=== PATIENT | female | born 1935 | race Caucasian/White ===

== ENCOUNTER → 2016-08-21 | Outpatient (CLI) | payer OTHER ==
[~2016-08-21] MED LIST: APIX1TAB PO; DILT240C48 PO; DILT300C21 PO; DRON400T PO; LEVO75TA5 PO; LNX125 PO
--- NOTE | 2016-08-21 09:46 | DIAGNOSTIC IMAGING REPORT ---
RIGHT HAND MIN 3 VIEWS ROUTINE CLINICAL HISTORY: Right hand pain COMPARISON: None. DISCUSSION: No acute fractures are visualized. 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 IMPRESSION: Advanced erosive osteoarthritic change. No acute fractures. Electronically signed by: Luiz Birmingham M.D. 08/21/2016 9:45 AM Dictated Date/Time: 08/21/2016 9:44 AM
== END | disposition home or self-care (01) ==
LOC: C.RAD1850 09:32
PROVIDERS: ATTEND Family Medicine
DX: M79.641 Pain in right hand (principal)

== ENCOUNTER → 2016-11-19 | Day surgery (SDC) | payer OTHER ==
[2016-10-21 14:54] VITALS: Ht 165.1 cm; Wt 62.3 kg
[~2016-11-19] VITALS: Ht 165.1 cm; Wt 62.3 kg
[~2016-11-19] MED LIST changes: +500ML BSS 0.3ML EPI 1:1000PF IRRIG ONE; +ACETAMINOPHEN 325 MG TAB PO PRN; +AMVISC PLUS 0.8ML SYRINGE INT OCU ONE; +ATROPINE SULFATE 0.1 MG/ML 5ML SYR IV PRN; +BSS FLUSH ONE; -DILT240C48 PO; -DRON400T PO; +ENDOCOAT 0.85ML SYRINGE INT OCU ONE; +EpHEDrine SULFATE INJ 50 MG/ML AMP IV PRN; +EpINEphrine INJ 1MG/ML AMP 1 MG/ML AMP ONE; +LACTATED RINGER'S 1000ML 500 ML IV SCH; +LIDOCAINE 4% OP SOLN DROP CHARGE ONE; +LIDOCAINE 4% OP SOLN DROP CHARGE OPL SCH; +LIDOCAINE HCL 1% MPF 2 ML VIAL ONE; +LIDOCAINE HCL 2% 2 ML VIAL (20MG/ML) ONE; +MIDAZOLAM HCL 1 MG/ML 2ML VIAL ONE; +MIX: 4ML BSS 1ML EPI 1:1000 PF TOP ONE; +MOXIFLOXACIN OPH SOLN PER DROP CHARGE ONE; +POVIDONE-IODINE OP SOLN 30 ML BTL ONE; +PROPARACAINE 0.5% OP SOLN PER DROP CHARGE OPL SCH; +PROPOFOL IV EMULSION 10 MG/ML 20 ML VIAL IV ONE; +TOBRAMYCIN/DEXAMETHASONE OPH OINT PER APPLN CHARGE ONE
--- NOTE | 2016-11-19 06:41 | History & Physical Bridge - SC ---
H&P Re-Evaluation Bridge Note: I have examined the patient, reviewed the History & Physical and in the interval since the performance of the History & Physical I have noted the following changes of clinical significance: No changes noted
[2016-11-19] MEDS: TROPICAMIDE 1% OP SOLN PER DROP CHARGE OPL SCH ×3 (06:44→06:54)
[2016-11-19] MEDS: PHENYLEPHRINE HCL 2.5% OP SOLN PER DROP CHARGE OPL SCH ×3 (06:44→06:51)
[2016-11-19] MEDS: CYCLOPENTOLATE HCL 1% OP SOLN PER DROP CHARGE OPL SCH ×3 (06:45→06:53)
[2016-11-19] MEDS: MOXIFLOXACIN OPH SOLN PER DROP CHARGE OPL SCH ×3 (06:45→06:57)
--- NOTE | 2016-11-19 07:26 | [facility] Post Operative Brief Note ---
Immediate Operative Summary Operative Date Nov 19, 2016. Pre-Operative Diagnosis Left Eye Cataract Post-Operative Diagnosis Same Procedure(s) Performed Left Eye Cataract PHacoemuslification With Intraocular Lens Implant Surgeon Dr. Carmona Client Consultant Surgeon(s) None Estimated Blood Loss None Findings left cataract Specimens None Complication(s) None Disposition
--- NOTE | 2016-11-19 07:27 | [facility] Operative Report ---
Operative Report Date of Service Nov 19, 2016. Operative Report Phaco with monofocal IOL DATE OF OPERATION: 11/19/16 PREOPERATIVE DIAGNOSIS: Senile nuclear cataract, left eye POSTOPERATIVE DIAGNOSIS: Senile nuclear cataract, left eye PROCEDURE PERFORMED: Phacoemulsification with intraocular lens implantation, left eye SURGEON: Dr. Nixon Carmona ANESTHESIA: Topical with 1% intracameral lidocaine and monitored anesthesia care COMPLICATIONS: None DESCRIPTION OF PROCEDURE: After positively identifying the patient both verbally and by wristband in the preoperative area, the left eye was marked as the operative eye. The patient was then brought back to the operating room by the anesthesia and nursing staff where they were given a drop of Lidocaine and betadine into the operative eye. They were then sterilely prepped and draped in the standard fashion typical for ophthalmic surgery. Steri-strips were placed along the upper eyelids to keep the lashes back, and a lid speculum was placed into the operative eye. At this point, a documented time out was performed with members of the ophthalmology, nursing, and anesthesia staffs all agreeing upon the correct patient, correct location for surgery, correct procedure, and correct type and power of intraocular lens to be implanted. The microscope was then swung into position. First, a paracentesis wound was made using a sideport blade. Then, in sequence, 1% preservative-free lidocaine followed by Endocoat viscoelastic was injected into the anterior chamber. Next , the main incision was made with a keratome blade in triplanar fashion. A sharp cystotome was introduced into the eye and used to create a tear in the anterior capsule, which was directed into a continuous curvilinear capsulorrhexis using Utrata forceps. Hydrodissection was then performed with BSS on a flat-tip cannula. Next, the phacoemulsification handpiece was introduced into the eye and used to remove the nucleus in a [id number] fashion. This was done without complication and then the irrigation-aspiration handpiece was introduced into the eye and used to remove all remaining cortical and epinuclear material. Amvisc was then injected into the anterior chamber as well as into the capsular bag and using the lens injector system, an MX60 23.0 D lens, serial number [id number], and expiration date 07/2019 was injected into the capsular bag and rotated into the correct position. Next, the irrigation- aspiration handpiece was used to remove all remaining Amvisc. BSS was used to hydrate the main wound, and then BSS was injected into the paracentesis site to reach physiologic pressure and then the main wound was checked and found to be watertight. The patient was given drops of Vigamox and Tobradex ointment into the operative eye, and then the surrounding area was cleaned and dried. A clear plastic shield was placed over the eye and the patient was then sat up and taken from the operating room by the anesthesia staff having tolerated the procedure well and suffering no complications. DISPOSITION: The patient was returned to the recovery room in stable condition. I attest to the content of the Intraoperative Record and any orders documented therein. Any exceptions are noted below.
--- NOTE | 2016-11-19 07:28 | Discharge Instructions-SurgCtr ---
Discharge Instructions Date of Service Nov 19, 2016. Visit Reason for Visit: Cataract Left Eye Discharge Discharge Diagnosis / Problem: left cataract Discharge Goals Goal(s): Decrease discomfort, Improve function Activity Recommendations Activity Limitations: as noted below Anesthesia . Post Anesthesia Instructions: If you have had General Anesthesia or IV Sedation: * Do not drive today. * Resume driving when surgeon permits. * Do not make important decisions or sign legal documents today. * Call surgeon for: 1. Temperature elevations greater than 101 degrees F. 2. Uncontrollable pain. 3. Excessive bleeding. 4. Persistent nausea and vomiting. 5. Medication intolerance (nausea, vomiting or rash). * For nausea and vomiting use only clear liquids such as: tea, soda, bouillon until nausea subsides, then gradually increase diet as tolerated. * If you have any concerns or questions, call your surgeon's office. If physician is unavailable and it is an emergency, call 911 or go to the nearest emergency room. . Instructions / Follow-Up Instructions / Follow-Up ACTIVITY RECOMMENDATIONS: * Light activities. * You may walk outside, read, watch television. * You may notice redness on the white part of the eye and some blurry vision - this is normal. MEDICATIONS: Resume previous medications unless instructed otherwise by your surgeon. Start all eye drops at 9:30 am today: * Eye drops (today): Prednisone - one drop in operative eye every 2 hours while awake Ofloxacin - one drop in operative eye every 2 hours while awake Bromfenac - one drop in operative eye daily SPECIAL CARE INSTRUCTIONS: * Tape plastic shield over eye to sleep at night. Call your doctor at with any concerns or problems. FOLLOW UP VISIT: Follow-up with Dr Carmona at [facility] as scheduled. Diet Recommendations Home Diet: no limitations Procedures Procedures Performed: Left Eye Cataract PHacoemuslification With Intraocular Lens Implant Pending Studies Studies pending at discharge: no Medical Emergencies . Who to Call and When: Medical Emergencies: If at any time you feel your situation is an emergency, please call 911 immediately. . Non-Emergent Contact Non-Emergency issues call your: Surgeon . . "Provider Documentation" section prepared by Nixon Carmona. .
[2016-11-19 07:30] VITALS: TEMP 36.3
--- NOTE | 2016-11-19 07:39 | Anesthesia Progress Nt - [facility] ---
Anesthesia Post Op Note Date & Time Nov 19, 2016 at 07:39 Vital Signs Pain Intensity: 0 Vital Signs Past 12 Hours Date Time Temp Pulse Resp B/P (MAP) Pulse Ox O2 Delivery O2 Flow Rate FiO2 11/19/16 06:42 105 16 130/86 (101) Notes Mental Status: alert / awake / arousable, participated in evaluation Pt Amnestic to Procedure: Yes Nausea / Vomiting: adequately controlled Pain: adequately controlled Airway Patency, RR, SpO2: stable & adequate BP & HR: stable & adequate Hydration State: stable & adequate Anesthetic Complications: no major complications apparent
[2016-11-19 07:57] VITALS: BP 146/88; PULSE 84; O2SAT 97
== END | disposition home or self-care (01) ==
LOC: X.SURG 06:06
PROVIDERS: ATTEND Ophthalmology
DX: H25.12 Age-related nuclear cataract, left eye (principal); E78.00 Pure hypercholesterolemia, unspecified; I48.91 Unspecified atrial fibrillation; E07.9 Disorder of thyroid, unspecified; I51.9 Heart disease, unspecified; Z79.899 Other long term (current) drug therapy

== ENCOUNTER → 2016-12-03 | Day surgery (SDC) | payer OTHER ==
[2016-11-27 07:38] VITALS: Ht 165.1 cm; Wt 62.3 kg
[~2016-12-03] VITALS: Ht 165.1 cm; Wt 62.3 kg
[~2016-12-03] MED LIST changes: +LACTATED RINGER'S 1000ML 1,000 ML IV SCH; -LACTATED RINGER'S 1000ML 500 ML IV SCH; -LIDOCAINE 4% OP SOLN DROP CHARGE OPL SCH; +LIDOCAINE 4% OP SOLN DROP CHARGE OPR SCH; -LIDOCAINE HCL 2% 2 ML VIAL (20MG/ML) ONE; -PROPARACAINE 0.5% OP SOLN PER DROP CHARGE OPL SCH; +PROPARACAINE 0.5% OP SOLN PER DROP CHARGE OPR SCH; -PROPOFOL IV EMULSION 10 MG/ML 20 ML VIAL IV ONE
[2016-12-03] MEDS: PHENYLEPHRINE HCL 2.5% OP SOLN PER DROP CHARGE OPR SCH ×3 (09:24→09:35)
[2016-12-03] MEDS: CYCLOPENTOLATE HCL 1% OP SOLN PER DROP CHARGE OPR SCH ×3 (09:26→09:38)
[2016-12-03] MEDS: TROPICAMIDE 1% OP SOLN PER DROP CHARGE OPR SCH ×3 (09:27→09:37)
[2016-12-03] MEDS: MOXIFLOXACIN OPH SOLN PER DROP CHARGE OPR SCH ×3 (09:28→09:39)
--- NOTE | 2016-12-03 10:32 | [facility] Post Operative Brief Note ---
Immediate Operative Summary Operative Date Dec 03, 2016. Pre-Operative Diagnosis Right Eye Cataract Post-Operative Diagnosis Same Procedure(s) Performed Right Cataract Phacoemulsification With Intraocular Lens Implant Surgeon Dr Carmona Supervisor Grounds Surgeon(s) None Estimated Blood Loss 0ml Findings right cataract Specimens None Complication(s) None Disposition
--- NOTE | 2016-12-03 10:33 | [facility] Operative Report ---
Operative Report Date of Service Dec 03, 2016. Operative Report Phaco with monofocal IOL DATE OF OPERATION: 12/03/16 PREOPERATIVE DIAGNOSIS: Senile nuclear cataract, right eye POSTOPERATIVE DIAGNOSIS: Senile nuclear cataract, right eye PROCEDURE PERFORMED: Phacoemulsification with intraocular lens implantation, right eye SURGEON: Dr. Nixon Carmona ANESTHESIA: Topical with 1% intracameral lidocaine and monitored anesthesia care COMPLICATIONS: None DESCRIPTION OF PROCEDURE: After positively identifying the patient both verbally and by wristband in the preoperative area, the right eye was marked as the operative eye. The patient was then brought back to the operating room by the anesthesia and nursing staff where they were given a drop of Lidocaine and betadine into the operative eye. They were then sterilely prepped and draped in the standard fashion typical for ophthalmic surgery. Steri-strips were placed along the upper eyelids to keep the lashes back, and a lid speculum was placed into the operative eye. At this point, a documented time out was performed with members of the ophthalmology, nursing, and anesthesia staffs all agreeing upon the correct patient, correct location for surgery, correct procedure, and correct type and power of intraocular lens to be implanted. The microscope was then swung into position. First, a paracentesis wound was made using a sideport blade. Then, in sequence, 1% preservative-free lidocaine followed by Endocoat viscoelastic was injected into the anterior chamber. Next , the main incision was made with a keratome blade in triplanar fashion. A sharp cystotome was introduced into the eye and used to create a tear in the anterior capsule, which was directed into a continuous curvilinear capsulorrhexis using Utrata forceps. Hydrodissection was then performed with BSS on a flat-tip cannula. Next, the phacoemulsification handpiece was introduced into the eye and used to remove the nucleus in a [id number] fashion. This was done without complication and then the irrigation-aspiration handpiece was introduced into the eye and used to remove all remaining cortical and epinuclear material. Amvisc was then injected into the anterior chamber as well as into the capsular bag and using the lens injector system, an MX60 22.5 D lens, serial number [id number], and expiration date 08/2019 was injected into the capsular bag and rotated into the correct position. Next, the irrigation- aspiration handpiece was used to remove all remaining Amvisc. BSS was used to hydrate the main wound, and then BSS was injected into the paracentesis site to reach physiologic pressure and then the main wound was checked and found to be watertight. The patient was given drops of Vigamox and Tobradex ointment into the operative eye, and then the surrounding area was cleaned and dried. A clear plastic shield was placed over the eye and the patient was then sat up and taken from the operating room by the anesthesia staff having tolerated the procedure well and suffering no complications. DISPOSITION: The patient was returned to the recovery room in stable condition. I attest to the content of the Intraoperative Record and any orders documented therein. Any exceptions are noted below.
[2016-12-03 10:34] VITALS: TEMP 36.4
--- NOTE | 2016-12-03 10:34 | Discharge Instructions-SurgCtr ---
Discharge Instructions Date of Service Dec 03, 2016. Visit Reason for Visit: Cataract Right Eye Discharge Discharge Diagnosis / Problem: right cataract Discharge Goals Goal(s): Decrease discomfort, Improve function Activity Recommendations Activity Limitations: as noted below Anesthesia . Post Anesthesia Instructions: If you have had General Anesthesia or IV Sedation: * Do not drive today. * Resume driving when surgeon permits. * Do not make important decisions or sign legal documents today. * Call surgeon for: 1. Temperature elevations greater than 101 degrees F. 2. Uncontrollable pain. 3. Excessive bleeding. 4. Persistent nausea and vomiting. 5. Medication intolerance (nausea, vomiting or rash). * For nausea and vomiting use only clear liquids such as: tea, soda, bouillon until nausea subsides, then gradually increase diet as tolerated. * If you have any concerns or questions, call your surgeon's office. If physician is unavailable and it is an emergency, call 911 or go to the nearest emergency room. . Instructions / Follow-Up Instructions / Follow-Up ACTIVITY RECOMMENDATIONS: * Light activities. * You may walk outside, read, watch television. * You may notice redness on the white part of the eye and some blurry vision - this is normal. MEDICATIONS: Resume previous medications unless instructed otherwise by your surgeon. Start all eye drops at 12:30 pm today: * Eye drops (today): Prednisone - one drop in operative eye every 2 hours while awake Ofloxacin - one drop in operative eye every 2 hours while awake Bromfenac - one drop in operative eye daily SPECIAL CARE INSTRUCTIONS: * Tape plastic shield over eye to sleep at night. Call your doctor at with any concerns or problems. FOLLOW UP VISIT: Follow-up with Dr Carmona at [facility] as scheduled. Diet Recommendations Home Diet: no limitations Procedures Procedures Performed: Right Cataract Phacoemulsification With Intraocular Lens Implant Pending Studies Studies pending at discharge: no Medical Emergencies . Who to Call and When: Medical Emergencies: If at any time you feel your situation is an emergency, please call 911 immediately. . Non-Emergent Contact Non-Emergency issues call your: Surgeon . . "Provider Documentation" section prepared by Nixon Carmona. .
--- NOTE | 2016-12-03 10:38 | Anesthesia Progress Nt - [facility] ---
Anesthesia Post Op Note Date & Time Dec 03, 2016 at 10:38 Vital Signs Pain Intensity: 0 Vital Signs Past 12 Hours Date Time Temp Pulse Resp B/P (MAP) Pulse Ox O2 Delivery O2 Flow Rate FiO2 12/03/16 10:34 36.4 76 16 128/75 (92) 97 Room Air 12/03/16 09:15 36.4 85 16 135/77 (96) 99 Room Air Notes Mental Status: alert / awake / arousable, participated in evaluation Pt Amnestic to Procedure: Yes Nausea / Vomiting: adequately controlled Pain: adequately controlled Airway Patency, RR, SpO2: stable & adequate BP & HR: stable & adequate Hydration State: stable & adequate Anesthetic Complications: no major complications apparent
[2016-12-03 10:52] VITALS: BP 126/81; PULSE 74; O2SAT 97
== END | disposition home or self-care (01) ==
LOC: X.SURG 08:46
PROVIDERS: ATTEND Ophthalmology
DX: H25.11 Age-related nuclear cataract, right eye (principal); E78.00 Pure hypercholesterolemia, unspecified; I48.91 Unspecified atrial fibrillation; E07.9 Disorder of thyroid, unspecified

== ENCOUNTER → 2017-02-16 | Outpatient (CLI) | payer OTHER ==
[~2017-02-16] MED LIST changes: -500ML BSS 0.3ML EPI 1:1000PF IRRIG ONE; -ACETAMINOPHEN 325 MG TAB PO PRN; -AMVISC PLUS 0.8ML SYRINGE INT OCU ONE; -ATROPINE SULFATE 0.1 MG/ML 5ML SYR IV PRN; -BSS FLUSH ONE; -ENDOCOAT 0.85ML SYRINGE INT OCU ONE; -EpHEDrine SULFATE INJ 50 MG/ML AMP IV PRN; -EpINEphrine INJ 1MG/ML AMP 1 MG/ML AMP ONE; -LACTATED RINGER'S 1000ML 1,000 ML IV SCH; -LIDOCAINE 4% OP SOLN DROP CHARGE ONE; -LIDOCAINE 4% OP SOLN DROP CHARGE OPR SCH; -LIDOCAINE HCL 1% MPF 2 ML VIAL ONE; -MIDAZOLAM HCL 1 MG/ML 2ML VIAL ONE; -MIX: 4ML BSS 1ML EPI 1:1000 PF TOP ONE; -MOXIFLOXACIN OPH SOLN PER DROP CHARGE ONE; -POVIDONE-IODINE OP SOLN 30 ML BTL ONE; -PROPARACAINE 0.5% OP SOLN PER DROP CHARGE OPR SCH; -TOBRAMYCIN/DEXAMETHASONE OPH OINT PER APPLN CHARGE ONE
--- NOTE | 2017-02-17 14:26 | MAMMOGRAPHY REPORT ---
BILATERAL DIGITAL SCREENING MAMMOGRAM TOMOSYNTHESIS WITH CAD: 02/16/2017 CLINICAL HISTORY: Routine screening. Patient has no complaints. TECHNIQUE: Breast tomosynthesis in addition to standard 2D mammography was performed. Current study was also evaluated with a Computer Aided Detection (CAD) system. COMPARISON: Comparison is made to exams dated: 02/11/2016 mammogram, 02/14/2015 ultrasound, 02/14/2015 mammogram, 02/01/2015 mammogram, 01/31/2014 mammogram, and 01/28/2013 mammogram - [facility]. BREAST COMPOSITION: There are scattered areas of fibroglandular density in both breasts. FINDINGS: The parenchymal pattern is unchanged. No developing mass, architectural distortion or clus ter of suspicious microcalcifications is seen in either breast. IMPRESSION: ACR BI-RADS CATEGORY 2: BENIGN There is no mammographic evidence of malignancy. A 1 year screening mammogram is recommended. The pa tient will receive written notification of the results. Approximately 10% of breast cancers are not detected with mammography. A negative mammographic report should not delay biopsy if a clinically suggestive mass is present. Candace Marie M.D. ay/:02/16/2017 15:13:42 Veterinary Virus Serum Inspector: Mirian SHIELDS)([place]), [facility] letter sent: Normal 1/2 BI-RADS Code: ACR BI-RADS Category 2: Benign
== END | disposition home or self-care (01) ==
LOC: C.MAMM 09:40
PROVIDERS: ATTEND Family Medicine
DX: Z12.31 Encounter for screening mammogram for malignant neoplasm of breast (principal)

== ENCOUNTER 2020-09-26 08:16 | Observation (INO) ==
[2020-09-26] MEDS ORDERED: SODIUM CHLORIDE 0.9% 1000ML 1,000 ML IV SCH (08:30)
--- NOTE | 2020-09-26 08:50 | XRay Report ---
XR chest 1V portable CLINICAL HISTORY: weakness COMPARISON STUDY: 06/14/2020 FINDINGS: Heart is enlarged. There is mild central pulmonary vascular congestion. There is a small ri ght pleural effusion with associated right basilar atelectasis/consolidation. A small subpulmonic lef t pleural effusion is also suspected. Prominent left basilar markings are likely atelectatic IMPRESSION: Cardiomegaly and radiographic evidence of mild congestive failure/fluid overload with sma ll bilateral pleural effusions right greater than left. ACT 112: Negative or not required by law. Electronically signed by: Luiz Birmingham M.D. 09/26/2020 8:48 AM
[2020-09-26 08:52] LABS: Basophils # (auto) 0.02 K/uL (0-0.2); Basophils % (auto) 0.3 %; Eosinophils # (auto) 0.19 K/uL (0-0.5); Hematocrit (blood only) 42.8 % (37-47); Hemoglobin 14.3 g/dL (12.0-16.0); Immature Granulocytes # (auto) 0.01 K/uL (0.00-0.02); Immature Granulocytes % (auto) 0.2 %; Lymphocytes # (auto) 0.65 K/uL (1.2-3.4); Lymphocytes % (auto) 10.1 %; Mean Corpuscular Hemoglobin 33.6 pg (25-34); Mean Corpuscular Hgb Conc 33.4 g/dL (32-36); Mean Corpuscular Volume 100.7 fL (80-100); Mean Platelet Volume 11.4 fL (7.4-10.4); Monocytes # (auto) 0.44 K/uL (0.11-0.59); Monocytes % (auto) 6.9 %; Neutrophils % (auto) 79.5 %; Platelet Count 195 K/uL (130-400); RDW Coefficient of Variation 13.5 % (11.5-14.5); RDW Standard Deviation 50.1 fL (36.4-46.3); Red Blood Count 4.25 M/uL (4.2-5.4); White Blood Count 6.41 K/uL (4.8-10.8)
[2020-09-26 09:09] LABS: Alanine Aminotransferase 35 U/L (12-78); Aspartate Aminotransferase 22 U/L (15-37); BUN Creatinine Ratio 14.8 (10-20); Blood Urea Nitrogen 24 mg/dl (7-18); Calcium 9.2 mg/dl (8.5-10.1); Carbon Dioxide 29 mmol/L (21-32); Chloride 105 mmol/L (98-107); Creatinine Clr Calc Pharmacy 19.8 ml/min; Est GFR (African American) 33.2 ml/min; Est GFR (Non-African American) 28.7 ml/min; Glucose 131 mg/dl (70-99); Potassium 3.6 mmol/L (3.5-5.1); Sodium 139 mmol/L (136-145)
[2020-09-26] MEDS ORDERED: FUROSEMIDE 40 MG/4 ML VIAL IV STA (09:11)
[2020-09-26 09:19] LABS: Alkaline Phosphatase 124 U/L (45-117); Bilirubin,Total 0.8 mg/dl (0.2-1); Globulin 4.1 gm/dl (2.5-4.0); Total Protein 8.1 gm/dl (6.4-8.2); Troponin I < 0.015 ng/ml (0-0.045)
--- NOTE | 2020-09-26 09:51 | CT Scan Report ---
CT head/brain wo con CLINICAL HISTORY: Head trauma. Acute change in mental status. COMPARISON STUDY: No previous studies for comparison. TECHNIQUE: Axial CT of the brain is performed from the vertex to the skull base. IV contrast was not administered for this examination. A dose lowering technique was utilized adhering to the principles of ALARA. CT DOSE: 1597.28 mGy.cm FINDINGS: No intra or extra-axial mass lesions are visualized. There is no CT evidence of acute cortical infarc tion. There is no evidence of midline shift. There is no acute hemorrhage. No calvarial fractures ar e visualized. There are patchy white matter hypodensities likely on a small vessel basis. There is a 3 mm for this particular calcification. There is no evidence of pathologic ventricular dilatation. There is no evidence of acute sinusitis There is left frontal scalp edema. The localizer image demonstrates evidence of congestive failure/fluid overload. IMPRESSION: No acute intracranial findings ACT 112: Negative or not required by law. Electronically signed by: Luiz Birmingham M.D. 09/26/2020 9:50 AM
--- NOTE | 2020-09-26 10:03 | CT Scan Report ---
CERVICAL SPINE CT CT DOSE: HISTORY: Pt c/o fall TECHNIQUE: Multiaxial CT images of the cervical spine were performed and reformatted in the sagittal and coronal plane without the use of contrast. A dose lowering technique was utilized adhering to th e principles of ALARA. COMPARISON: None. FINDINGS: No fractures. No subluxation. Prevertebral soft tissues and the C1-C2 interval are intact. No pneumothorax. There is interlobular septal thickening within the lung apices with bilateral pleura l effusions. This favors pulmonary edema. Straightening of the cervical spine. Moderate to severe dis c space narrowing from C4 through C7 with endplate osteophytes. IMPRESSION: 1. No fractures within the cervical spine. 2. Pulmonary edema and bilateral pleural effusions. ACT 112: Negative or not required by law. Electronically signed by: Deshawn Clayton M.D. 09/26/2020 10:02 AM
[2020-09-26 10:35] LABS: Appearance Urine Clear (Clear); Bacteria Urine Automated Negative (Negative); Bilirubin Urine Negative (Negative); Blood Urine Trace (Negative); Cast Urine Automated 0 /lpf (0-5); Color Urine Yellow; Epithelial Cell Urine Auto 0-5 /lpf (0-5); Glucose Urine UA Negative (Negative); Ketones Urine Negative (Negative); Leukocyte Esterase Urine Negative (Negative); Nitrite Urine Negative (Negative); Protein Urine Negative (Negative); Specific Gravity Urine 1.007 (1.000-1.030); Urobilinogen Urine Negative (Negative); pH Urine 7.5 (4.5-7.5)
[2020-09-26] MEDS ORDERED: APIXABAN 2.5 MG TAB PO STA (10:53)
--- NOTE | 2020-09-26 11:35 | History & Physical Report ---
Date of Service September 26, 2020 Assessment & Plan (1) Fall: Plan: S/p fall with dizziness as primary symptom prior. - Patient exhibiting evidence of volume overload with elevated BNP and mild congestion on CXR - Likely related to valve incompetence in the setting of elevation in intravascular volume - Troponin and ECG normal - Head CT scan negative for acute bleed - Neuroligcal exam normal- neuro checks q4 hours, if any worsening repeat stat non-con head CT - Cervical spine cleared radiologically and clinically - No other evidence of trauma - Telmetry for 24 hours (2) Severe mitral valve stenosis: Plan: As above, ? complicated with dietary indiscretion and volume increase - She denies any orthopnea normally - ECHO while in house evlaute valve funciton - Noted dilated atrium on last ECHO (3) Atrial fibrillation: Plan: Rate controlled with diltiazem and Digoxin. She takes her Digoxin MWF - She did not take her medications this morning- ordered 1x dose in EMD of her Apixaban, Digoxin, Cardizem, Synthroid - Rate has improved into the 80s with diuresing although this is at rest - Follow telemetry - Dig level ordered - Continue above medications (4) CKD (chronic kidney disease) stage 3, GFR 30-59 ml/min: Plan: Kidney function stable at her baseline - Avoid nephrotoxic medicatons and renally dose as applicable (5) Hypoxia: Plan: Likely related to increase pulmonary vascular congestion as above - Symptoms greatly improved with brisk diuresing - Follow- due that she hasn't missed a dose of her apixaban PE unlikely - if her symptoms don't arleen consider CTA of the chest - Wean oxygen for SPo2 >94% - Albuterol PRN for wheezing (6) Hypothyroid: Plan: Continue Synthroid dosing- history of Abhinav thyroiditis (7) GERD (gastroesophageal reflux disease): Plan: Chronic- Continue famotidine and Omeprazole (8) B12 deficiency: Plan: Continue B12 mild macrocytic with normal HGB - no acute needs at this time History of Present Illness Chief Complaint: fall Primary Care Provider: Geri Salgado, DO 84 YOF with past medical history of: HF, Afib(on Apixaban), 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 Patient comes into the emergency room today after getting out of bed this morning and feeling weak; she then fell over hitting her head on her bed. She states that she just got up and felt dizzy and went over. She denies losing consciousness and was able to crawl to chair to get up and call her son. She denies any prodrome symptoms, room spinning, or tunneling of vision. She had some increase in dyspnea into this morning and this has gotten better per her after getting the lasix in the EMD. Patient does not endorse any other symptoms through this week. She does however endorse dietary indiscretion with salted crackers over the past couple of days. In the EMD the patient had routine labs drawn, CT scan of the head and neck, and required oxygen which has now been titrated down to 2LNC. Her labs were remarkable for an elevated BNP, glucose of 131. She was given 40 mg IV Lasix with brisk response at this time. Patient feels her breathing has improved quiet a bit, she used to be on a diuretic in the past but not anymore. She also denies that she has missed any of her medications including her Apixaban. Patient will be observed overnight regarding her rhythm, fluid volume status, mental status, and oxygenation needs. Patient received [facility] COVID vaccine in the spring. COVID test is pending on admission. Allergies Allergy/AdvReac Type Severity Reaction Status Date / Time No Known Drug Allergies Allergy Verified 09/26/20 10:47 Home Medications Medication Instructions Recorded Confirmed Type apixaban 2.5 mg tablet 2.5 mg PO BID tab 10/18/18 09/26/20 History digoxin 125 mcg (0.125 mg) tablet 125 mcg PO 3XWK tab 10/18/18 09/26/20 History diltiazem HCl 300 mg 300 mg PO QAM cap 10/18/18 09/26/20 History capsule,extended release 24 hr levothyroxine 75 mcg tablet 75 mcg PO QAM tab 10/18/18 09/26/20 History famotidine 10 mg tablet 10 mg PO QAM 03/05/20 09/26/20 History omeprazole 20 mg capsule,delayed 20 mg PO DAILY 06/13/20 09/26/20 History release cyanocobalamin (vitamin B-12) 0 mcg PO QDL 09/26/20 09/26/20 History 1,000 mcg tablet (Vitamin B-12) escitalopram oxalate 5 mg tablet 5 mg PO QAM 09/26/20 09/26/20 History furosemide 20 mg tablet 20 mg PO 3XWK 09/26/20 09/26/20 History Past Med/Surg History Medical History Atrial fibrillation A FEW YEARS AGO , CARDIOVERSION UNSUCCESSFUL. FOLLOW WITH DR POZO TAKES DIG AND DILTIAZEM AND ELIQUIS Atrial fibrillation Chronic kidney disease, stage 3 Extremity edema TAKES LASIX NEEDED Abhinav's thyroiditis Pleural effusion Severe mitral valve stenosis Shortness of breath Surgical History History of laparotomy SMALL BOWEL OBSTRUCTION DUE TO ADHESION 2018 Hx of colonoscopy Hx of inguinal hernia surgery (04/21/19) Right Open Inguinal Hernia with Mesh Dr. Kumar 04/21/19 Family History Sister Hearing loss Heart disease Brother Hearing loss Heart disease Other No family history of adverse response to anesthesia No family history of bleeding disorder Denies family history of Kidney disease Social History Smoking Status: Never smoker Second Hand Exposure: No; Hx Alcohol Use: No Hx Substance Use: No Preferred Language: Cymraes Communication Ability: Effective Visual Impairment: No Limitations Cook Chef Required: No Beliefs That Will Affect Care: None marital status: / Current Living Situation: Alone Current Living Situation Comment: apartment current occupational status: retired Other Information That Helps Us Care for You: No Feels Safe at Home: Yes Safety Concerns: Feels Safe At This Time Assistive Devices: Denture - Upper, Denture - Lower and Glasses Review of Systems Review of Systems: REVIEW OF SYSTEMS: Constitutional: No fever, sweats or chills Eyes: No diplopia, no worsening or blurred vision ENT: (+) wears bilateral hearing aids, no trouble swallowing Respiratory: (+) dyspnea with exertion, No cough, sputum, dyspnea at rest Cardiovascular: No chest pain, tightness or palpitations Abdomen: No pain, nausea, vomiting, diarrhea or constipation Musculoskeletal: (+) chronic left knee NO calf pain, swelling Neurologic: No weakness, numbness/tingling, or balance problems Psychiatric: No anxiety or depression Skin: No rash or itch Physical Exam Physical Exam: PHYSICAL EXAM: General: awake, alert, no apparent distress, hematoma to left forehead Head: Normocephalic, hematoma to left forehead, no tenderness to skull or face ENT: PERRL, EOMI, no pharyngeal exudate, mucous membranes moist Neuro: AAO x 3, speech clear and appropriate, strength intact bilaterally 5/5, sensation intact and equal all extremities and dermatomes, no pronator drift Chest: equal rise and fall of the chest, no accessory muscle use, no heaves or thrills, scattered crackles with expiratory wheeze, 2LNC, Cardiac: irregular rate and rhythm, telemetry reviewed-afib, skin warm dry, cap refill <3 seconds, peripheral pulses +2 no JVD, Grade III systolic murmur, no edema GI: NABS x 4 quadrants, soft, nontender to palpation, no rebound, guarding or tenderness : Spontaneously voiding, no pain, no CVA tenderness, Extremities: Normal inspection, no peripheral edema or erythema, calfs nontender to palpation MSK: No cervical or thoracic pain with palpation, no stepoffs, full range of motion to neck, full rom to shoulders, arms, and hip and pelvis without tenderness. Psych: Normal mood and affect Skin: as above, no rash or erythema Results & Data Results & Data ([facility]) Vital Signs (Past 12 Hours) Vital Signs Temp Pulse Pulse Resp BP BP Pulse Ox 09/26/20 09:33 87 L 09/26/20 09:31 98 H 24 152/98 H 94 09/26/20 08:42 92 09/26/20 08:23 36.4 C L 79 18 143/74 H 91 09/26/20 08:21 83 19 143/74 H 91 Laboratory Results Abnormal lab results 09/26/20 09/26/20 09/26/20 Range/Units 08:30 08:30 08:30 MCV 100.7 H (80-100) fL RDW Std Deviation 50.1 H (36.4-46.3) fL MPV 11.4 H (7.4-10.4) fL Lymph # (Auto) 0.65 L (1.2-3.4) K/uL BUN 24 H (7-18) mg/dl Creatinine 1.61 H (0.6-1.2) mg/dl Glucose 131 H (70-99) mg/dl Alkaline Phosphatase 124 H (45-117) U/L NT-Pro-B Natriuret Pep 3176 H (0-1800) pg/ml Globulin 4.1 H (2.5-4.0) gm/dl Urine Blood (Negative) Urine RBC (Auto) (0-4) /hpf 09/26/20 Range/Units 10:15 MCV (80-100) fL RDW Std Deviation (36.4-46.3) fL MPV (7.4-10.4) fL Lymph # (Auto) (1.2-3.4) K/uL BUN (7-18) mg/dl Creatinine (0.6-1.2) mg/dl Glucose (70-99) mg/dl Alkaline Phosphatase (45-117) U/L NT-Pro-B Natriuret Pep (0-1800) pg/ml Globulin (2.5-4.0) gm/dl Urine Blood Trace H (Negative) Urine RBC (Auto) 5-10 H (0-4) /hpf Diagnostic Findings Cervical Spine CT 09/26/20 08:[address] DOSE: HISTORY: Pt c/o fall TECHNIQUE: Multiaxial CT images of the cervical spine were performed and reformatted in the sagittal and coronal plane without the use of contrast. A dose lowering technique was utilized adhering to the principles of ALARA. COMPARISON: None. FINDINGS: No fractures. No subluxation. Prevertebral soft tissues and the C1-C2 interval are intact. No pneumothorax. There is interlobular septal thickening within the lung apices with bilateral pleural effusions. This favors pulmonary edema. Straightening of the cervical spine. Moderate to severe disc space narrowing from C4 through C7 with endplate osteophytes. IMPRESSION: 1. No fractures within the cervical spine. 2. Pulmonary edema and bilateral pleural effusions. ACT 112: Negative or not required by law. Electronically signed by: Deshawn Clayton M.D. 09/26/2020 10:02 AM Chest X-Ray 09/26/20 08:28 XR chest 1V portable CLINICAL HISTORY: weakness COMPARISON STUDY: 06/14/2020 FINDINGS: Heart is enlarged. There is mild central pulmonary vascular congestion. There is a small right pleural effusion with associated right bas ilar atelectasis/consolidation. A small subpulmonic left pleural effusion is also suspected. Prominent left basilar markings are likely atelectatic IMPRESSION: Cardiomegaly and radiographic evidence of mild congestive failure/fluid overload with small bilateral pleural effusions right greater than left. ACT 112: Negative or not required by law. Electronically signed by: Luiz Birmingham M.D. 09/26/2020 8:[address] 09/26/20 08:28 CT head/brain wo con CLINICAL HISTORY: Head trauma. Acute change in mental status. COMPARISON STUDY: No previous studies for comparison. TECHNIQUE: Axial CT of the brain is performed from the vertex to the skull base. IV contrast was not administered for this examination. A dose lowering technique was utilized adhering to the principles of ALARA. CT DOSE: 1597.28 mGy.cm FINDINGS: No intra or extra-axial mass lesions are visualized. There is no CT evidence of acute cortical infarction. There is no evidence of midline shift. There is no acute hemorrhage. No calvarial fractures are visualized. There are patchy white matter hypodensities likely on a small vessel basis. There is a 3 mm for this particular calcification. There is no evidence of pathologic ventricular dilatation. There is no evidence of acute sinusitis There is left frontal scalp edema. The localizer image demonstrates evidence of congestive failure/fluid overload. IMPRESSION: No acute intracranial findings ACT 112: Negative or not required by law. Electronically signed by: Luiz Birmingham M.D. 09/26/2020 9:50 AM Medications Administered Home Medications apixaban 2.5 mg tablet 2.5 mg PO BID tab 10/18/18 [History Confirmed 09/26/20] digoxin 125 mcg (0.125 mg) tablet 125 mcg PO 3XWK tab 10/18/18 [History Confirmed 09/26/20] diltiazem HCl 300 mg capsule,extended release 24 hr 300 mg PO QAM cap 10/18/18 [History Confirmed 09/26/20] levothyroxine 75 mcg tablet 75 mcg PO QAM tab 10/18/18 [History Confirmed 09/26/20] famotidine 10 mg tablet 10 mg PO QAM 03/05/20 [History Confirmed 09/26/20] omeprazole 20 mg capsule,delayed release 20 mg PO DAILY 06/13/20 [History Confirmed 09/26/20] cyanocobalamin (vitamin B-12) 1,000 mcg tablet (Vitamin B-12) 0 mcg PO QDL 09/26/20 [History Confirmed 09/26/20] escitalopram oxalate 5 mg tablet 5 mg PO QAM 09/26/20 [History Confirmed 09/26/20] furosemide 20 mg tablet 20 mg PO 3XWK 09/26/20 [History Confirmed 09/26/20] Discontinued Medications Furosemide (Furosemide 40 Mg/4 Ml Vial) 40 mg IV NOW STA Stop: 09/26/20 09:12 Last Admin: 09/26/20 09:28 Dose: 40 mg Documented by: [id number] Sodium Chloride (Nss 1000ml) 1,000 mls @ 999 mls/hr IV .Q1H1M SADI Stop: 09/26/20 09:30 Last Infusion: 09/26/20 10:32 Dose: 0 mls/hr Documented by: [id number] Admin: 09/26/20 08:43 Dose: 999 mls/hr Documented by: [id number] ECG Additional Comments: Atrial fibrillation Left axis deviation Nonspecific ST abnormality Abnormal ECG When compared with ECG of 17-JUN-2019 07:30, No significant change was found Code Status & VTE Plan Code Status CODE: FULL VTE: SCD's, Apixaban VTE Prophylaxis Plan VTE Prophylaxis will be ordered: Yes Supervising Physician Co-Signing Physician Notes Patient seen and examined at bedside. Obtained history and physical examination during face to face encounter with patient. I reviewed above note and agree with it. Discussed plan with RICKEY Rosario. I answered all of the patients questions. Patient is being admitted for likely fluid overload. will continue diuretics and monitor renal function. PG Care Time/CCT Total # of Minutes Spent Total Time Spent with Patient: Total time spent is greater than 50% in coordination of care (as documented) at patient's floor/unit and/or counseling patient: Coding Level of Care Code INT OBSERVATION CARE 70M LVL 3 Diagnoses Fall W19.XXXA Severe mitral valve stenosis I05.0 Atrial fibrillation I48.91 CKD (chronic kidney disease) stage 3, GFR 30-59 ml/min N18.3 Hypoxia R09.02 Hypothyroid E03.9 GERD (gastroesophageal reflux disease) K21.9 B12 deficiency E53.8
--- NOTE | 2020-09-26 14:15 | Emergency Department Note ---
Impression & Plan Weakness, Fall, Head injury ED Provider Note NAME: ZAFAR LOBO AGE: 84 SEX: F : 1935 ARRIVES VIA: Ambulance INFORMANT: Patient, ED PROVIDER(S): Dennis Walker MD CHIEF COMPLAINT: Fall, weakness HPI: This is an 84-year-old female who arrives in the emergency department short of breath. The patient reports she was getting out of bed this morning and she fell due to weakness complaining of a headache. The patient reports the pain is an ache with no radiation. She reports nothing makes the pain better or worse. She has not taken anything for the pain prior to arrival. The patient is on Xa relto. She reports a history of atrial fibrillation. ROS: See above HPI for pertinent positives & negatives. A total of 10 systems reviewed and were otherwise negative. PAST MEDICAL HISTORY: See Below PAST SURGICAL HISTORY: See Below FAMILY HISTORY: See Below SOCIAL HISTORY: See Below HOME MEDICATIONS: See Below ALLERGIES: See Below VITALS: See Below PHYSICAL EXAMINATION: VITAL SIGNS - Vital signs and nursing notes were reviewed. GENERAL - 84-year-old female appearing stated age who is in no acute distress. Communicates well with provider and answers questions appropriately. SKIN - Without rashes. HEAD - NC/AT. EYES - PERRL with EOMI bilaterally. Sclera anicteric. Palpebral conjunctiva pink and moist with no injection noted. EARS - No deformities of external structures noted on gross examination bilaterally. No pain elicited with palpation of the tragus bilaterally. NOSE - Midline and without cyanosis. No epistaxis or purulent drainage noted. Septum midline without deviation or septal hematoma noted. MOUTH/OROPHARYNX - Without perioral cyanosis. Buccal mucosa pink and moist and without leukoplakia. Tongue midline with equal elevation of palate bilaterally. No tonsillar hypertrophy, erythema, or exudates noted. NECK - Neck with FROM. Supple to palpation. LUNGS - Chest wall symmetric without accessory muscle use, intercostals retractions, or central cyanosis. Normal vesicular breath sounds CTA B/L. No wheezes, rales, or rhonchi appreciated. CARDIAC - RRR with S1/S2. No murmur, rubs, or gallops appreciated. ABDOMEN - Abdominal contour without pulsations or visible masses. BS normoactive all four quadrants. No tenderness, palpable masses, hepatosplenomegaly, or ascites noted. EXTREMITIES - No clubbing or peripheral cyanosis. No pretibial edema present. +3/5 radial, posterior tibial, and dorsalis pedis pulses palpated throughout. +5/5 strength noted in UE/LE bilaterally. NEUROLOGIC - Cranial nerves II through XII grossly intact. Sensory intact to light touch throughout. Patellar reflexes +2/4. PSYCH - A&Ox3 and cooperates fully with examiner. Pt is very pleasant and interacts well with examiner. MEDICAL DECISION MAKING: Patient was seen and evaluated as above in room A2. Review was performed of nursing notes and vital signs. I did review pertinent previous visits and patient history. After obtaining a thorough history and physical examination the above work up was performed. This is an 84-year-old female who presents emergency department after weakness. Patient was found to be hypoxic in the emergency department. Her chest x-ray is consistent with congestive heart failure. She does not have an elevation in her troponin. She was given IV Lasix here in the emergency department. I did discuss her case with the hospitalist service who did agree to meet the patient. Patient and family are in agreement with treatment plan. An order was placed for continuous cardiac monitoring. The monitor shows a rate of 87 with Normal Sinus rhythm. The patient was evaluated during a period of high volume and high acuity during the global COVID-19 pandemic, and that diagnosis was suspected/considered upon their initial presentation. Their evaluation, treatment and testing was consistent with current guidelines for patients who present with complaints or symptoms that may be related to COVID-19. Patient was seen while provider was wearing PPE. Triage Nursing notes reviewed. Prior medical records reviewed Vital Signs: reviewed and remarkable for no significant abnormalities Differential diagnosis: Infection, dehydration, metabolic abnormality, hypo/hyperglycemia, electrolyte disturbance, anemia, hypoxia, cardiac sources, intracerebral event, toxicologic, neurologic, as well as other pathologies. ER treatment provided: See below Diagnostics interpreted by me: ECG: A. fib left axis deviation no ST elevation or depression QTC is 458 ventricular rate is 84 EKG is compared to 06/17/2019 no significant changes found. Laboratory studies: As stated above and show below. Imaging studies: See below Consultation(s): Internal Medicine Past Med/Surg History Medical History Atrial fibrillation A FEW YEARS AGO , CARDIOVERSION UNSUCCESSFUL. FOLLOW WITH DR POZO TAKES DIG AND DILTIAZEM AND ELIQUIS Atrial fibrillation Chronic kidney disease, stage 3 Extremity edema TAKES LASIX NEEDED Abhinav's thyroiditis Pleural effusion Severe mitral valve stenosis Shortness of breath Surgical History History of laparotomy SMALL BOWEL OBSTRUCTION DUE TO ADHESION 2018 Hx of colonoscopy Hx of inguinal hernia surgery (04/21/19) Right Open Inguinal Hernia with Mesh Dr. Kumar 04/21/19 Family History Sister Hearing loss Heart disease Brother Hearing loss Heart disease Other No family history of adverse response to anesthesia No family history of bleeding disorder Denies family history of Kidney disease Social History Smoking Status: Never smoker Second Hand Exposure: No; Hx Alcohol Use: No Hx Substance Use: No Preferred Language: Bulgarian Communication Ability: Effective Visual Impairment: No Limitations [employer] Required: No Beliefs That Will Affect Care: None marital status: / Current Living Situation: Alone Current Living Situation Comment: apartment current occupational status: retired Feels Safe at Home: Yes Assistive Devices: Denture - Upper, Denture - Lower and Glasses Allergies Allergies Allergy/AdvReac Type Severity Reaction Status Date / Time No Known Drug Allergies Allergy Verified 09/26/20 10:47 Home Meds Home Medications Medication Instructions Recorded Confirmed apixaban 2.5 mg tablet 2.5 mg PO BID tab 10/18/18 09/26/20 digoxin 125 mcg (0.125 mg) tablet 125 mcg PO 3XWK tab 10/18/18 09/26/20 diltiazem HCl 300 mg 300 mg PO QAM cap 10/18/18 09/26/20 capsule,extended release 24 hr levothyroxine 75 mcg tablet 75 mcg PO QAM tab 10/18/18 09/26/20 famotidine 10 mg tablet 10 mg PO QAM 03/05/20 09/26/20 omeprazole 20 mg capsule,delayed 20 mg PO DAILY 06/13/20 09/26/20 release cyanocobalamin (vitamin B-12) 0 mcg PO QDL 09/26/20 09/26/20 1,000 mcg tablet (Vitamin B-12) escitalopram oxalate 5 mg tablet 5 mg PO QAM 09/26/20 09/26/20 furosemide 20 mg tablet 20 mg PO 3XWK 09/26/20 09/26/20 Results & Data (ED) Vital Signs Vital Signs - 24 hr 09/26/20 08:21 09/26/20 08:23 09/26/20 08:42 Temperature 36.4 C L Temperature Source Oral Pulse Rate 83 79 Pulse Rate [Apical] Pulse Rate from SpO2 Sensor 83 Respiratory Rate 19 18 Blood Pressure 143/74 H 143/74 H Blood Pressure [Right Arm] Blood Pressure Mean 97 97 Blood Pressure Mean [Right Arm] Pulse Oximetry 91 91 92 Oxygen Delivery Method Room Air Oxygen Flow Rate Sepsis Recent Fever Within 48 Hours No Sepsis New/Unexplained Change in Mental Status No Sepsis Action Taken by Nursing No Action Required Oxygen Flow Rate - Titration Pulse Oximetry Post Tiitration 09/26/20 09:00 09/26/20 09:30 09/26/20 09:31 Temperature Temperature Source Pulse Rate 86 Pulse Rate [Apical] 98 H Pulse Rate from SpO2 Sensor 87 Respiratory Rate 24 24 Blood Pressure 140/78 152/98 H Blood Pressure [Right Arm] 152/98 H Blood Pressure Mean 98 116 Blood Pressure Mean [Right Arm] 116 Pulse Oximetry 94 Oxygen Delivery Method Oxymask Oxygen Flow Rate 6 Sepsis Recent Fever Within 48 Hours Sepsis New/Unexplained Change in Mental Status Sepsis Action Taken by Nursing Oxygen Flow Rate - Titration Pulse Oximetry Post Tiitration 09/26/20 09:33 09/26/20 10:00 09/26/20 10:30 Temperature Temperature Source Pulse Rate 85 89 Pulse Rate [Apical] Pulse Rate from SpO2 Sensor 90 84 Respiratory Rate 23 24 Blood Pressure 134/71 149/77 H Blood Pressure [Right Arm] Blood Pressure Mean 92 101 Blood Pressure Mean [Right Arm] Pulse Oximetry 87 L 96 96 Oxygen Delivery Method Nasal Cannula Oxymask Oxymask Oxygen Flow Rate 2 6 2 Sepsis Recent Fever Within 48 Hours Sepsis New/Unexplained Change in Mental Status Sepsis Action Taken by Nursing Oxygen Flow Rate - Titration 6 Pulse Oximetry Post Tiitration 94 Laboratory Data Result diagrams: 09/26/20 08:30 09/26/20 08:30 Lab Results 09/26/20 09/26/20 09/26/20 Range/Units 08:30 08:30 08:30 WBC 6.41 (4.8-10.8) K/uL RBC 4.25 (4.2-5.4) M/uL Hgb 14.3 (12.0-16.0) g/dL Hct 42.8 (37-47) % MCV 100.7 H (80-100) fL MCH 33.6 (25-34) pg MCHC 33.4 (32-36) g/dL RDW Std Deviation 50.1 H (36.4-46.3) fL RDW Coeff of Job 13.5 (11.5-14.5) % Plt Count 195 (130-400) K/uL MPV 11.4 H (7.4-10.4) fL Immature Gran % (Auto) 0.2 % Neut % (Auto) 79.5 % Lymph % (Auto) 10.1 % Porter % (Auto) 6.9 % Eos % (Auto) 3.0 % Baso % (Auto) 0.3 % Neut # (Auto) 5.10 (1.4-6.5) K/uL Lymph # (Auto) 0.65 L (1.2-3.4) K/uL Porter # (Auto) 0.44 (0.11-0.59) K/uL Eos # (Auto) 0.19 (0-0.5) K/uL Baso # (Auto) 0.02 (0-0.2) K/uL Immature Gran # (Auto) 0.01 (0.00-0.02) K/uL Sodium 139 (136-145) mmol/L Potassium 3.6 (3.5-5.1) mmol/L Chloride 105 (98-107) mmol/L Carbon Dioxide 29 (21-32) mmol/L Anion Gap 5.0 (3-11) BUN 24 H (7-18) mg/dl Creatinine 1.61 H (0.6-1.2) mg/dl Est Cr Clr Drug Dosing 19.8 ml/min Est GFR ( Amer) 33.2 ml/min Est GFR (Non-Af Amer) 28.7 ml/min BUN/Creatinine Ratio 14.8 (10-20) Glucose 131 H (70-99) mg/dl Calcium 9.2 (8.5-10.1) mg/dl Total Bilirubin 0.8 (0.2-1) mg/dl AST 22 (15-37) U/L ALT 35 (12-78) U/L Alkaline Phosphatase 124 H (45-117) U/L Troponin I < 0.015 (0-0.045) ng/ml NT-Pro-B Natriuret Pep 3176 H (0-1800) pg/ml Total Protein 8.1 (6.4-8.2) gm/dl Albumin 4.0 (3.4-5.0) gm/dl Globulin 4.1 H (2.5-4.0) gm/dl Albumin/Globulin Ratio 1.0 (0.9-2) TSH 3.300 (0.300-4.500) uIu/ml Urine Color Urine Appearance (Clear) Urine pH (4.5-7.5) Ur Specific Verdon (1.000-1.030) Urine Protein (Negative) Urine Glucose (UA) (Negative) Urine Ketones (Negative) Urine Blood (Negative) Urine Nitrite (Negative) Urine Bilirubin (Negative) Urine Urobilinogen (Negative) Ur Leukocyte Esterase (Negative) Urine WBC (Auto) (0-5) /hpf Urine RBC (Auto) (0-4) /hpf U Hyaline Cast (Auto) (0-5) /lpf U Epithel Cells (Auto) (0-5) /lpf Urine Bacteria (Auto) (Negative) 09/26/20 Range/Units 10:15 WBC (4.8-10.8) K/uL RBC (4.2-5.4) M/uL Hgb (12.0-16.0) g/dL Hct (37-47) % MCV (80-100) fL MCH (25-34) pg MCHC (32-36) g/dL RDW Std Deviation (36.4-46.3) fL RDW Coeff of Job (11.5-14.5) % Plt Count (130-400) K/uL MPV (7.4-10.4) fL Immature Gran % (Auto) % Neut % (Auto) % Lymph % (Auto) % Porter % (Auto) % Eos % (Auto) % Baso % (Auto) % Neut # (Auto) (1.4-6.5) K/uL Lymph # (Auto) (1.2-3.4) K/uL Porter # (Auto) (0.11-0.59) K/uL Eos # (Auto) (0-0.5) K/uL Baso # (Auto) (0-0.2) K/uL Immature Gran # (Auto) (0.00-0.02) K/uL Sodium (136-145) mmol/L Potassium (3.5-5.1) mmol/L Chloride (98-107) mmol/L Carbon Dioxide (21-32) mmol/L Anion Gap (3-11) BUN (7-18) mg/dl Creatinine (0.6-1.2) mg/dl Est Cr Clr Drug Dosing ml/min Est GFR ( Amer) ml/min Est GFR (Non-Af Amer) ml/min BUN/Creatinine Ratio (10-20) Glucose (70-99) mg/dl Calcium (8.5-10.1) mg/dl Total Bilirubin (0.2-1) mg/dl AST (15-37) U/L ALT (12-78) U/L Alkaline Phosphatase (45-117) U/L Troponin I (0-0.045) ng/ml NT-Pro-B Natriuret Pep (0-1800) pg/ml Total Protein (6.4-8.2) gm/dl Albumin (3.4-5.0) gm/dl Globulin (2.5-4.0) gm/dl Albumin/Globulin Ratio (0.9-2) TSH (0.300-4.500) uIu/ml Urine Color Yellow Urine Appearance Clear (Clear) Urine pH 7.5 (4.5-7.5) Ur Specific [place] 1.007 (1.000-1.030) Urine Protein Negative (Negative) Urine Glucose (UA) Negative (Negative) Urine Ketones Negative (Negative) Urine Blood Trace H (Negative) Urine Nitrite Negative (Negative) Urine Bilirubin Negative (Negative) Urine Urobilinogen Negative (Negative) Ur Leukocyte Esterase Negative (Negative) Urine WBC (Auto) 1-5 (0-5) /hpf Urine RBC (Auto) 5-10 H (0-4) /hpf U Hyaline Cast (Auto) 0 (0-5) /lpf U Epithel Cells (Auto) 0-5 (0-5) /lpf Urine Bacteria (Auto) Negative (Negative) Administered Medications Discontinued Medications Apixaban (Apixaban 2.5 Mg Tab) 2.5 mg PO NOW STA Stop: 09/26/20 10:54 Last Admin: 09/26/20 11:27 Dose: 2.5 mg Documented by: [id number] Furosemide (Furosemide 40 Mg/4 Ml Vial) 40 mg IV NOW STA Stop: 09/26/20 09:12 Last Admin: 09/26/20 09:28 Dose: 40 mg Documented by: [id number] Sodium Chloride (Nss 1000ml) 1,000 mls @ 999 mls/hr IV .Q1H1M SADI Stop: 09/26/20 09:30 Last Infusion: 09/26/20 10:32 Dose: 0 mls/hr Documented by: [id number] Admin: 09/26/20 08:43 Dose: 999 mls/hr Documented by: [id number] Imaging Data Radiologist's Impression: Cervical Spine CT 09/26/20 08:[address] DOSE: HISTORY: Pt c/o fall TECHNIQUE: Multiaxial CT images of the cervical spine were performed and reformatted in the sagittal and coronal plane without the use of contrast. A dose lowering technique was utilized adhering to the principles of ALARA. COMPARISON: None. FINDINGS: No fractures. No subluxation. Prevertebral soft tissues and the C1-C2 interval are intact. No pneumothorax. There is interlobular septal thickening within the lung apices with bilateral pleural effusions. This favors pulmonary edema. Straightening of the cervical spine. Moderate to severe disc space narrowing from C4 through C7 with endplate osteophytes. IMPRESSION: 1. No fractures within the cervical spine. 2. Pulmonary edema and bilateral pleural effusions. ACT 112: Negative or not required by law. Electronically signed by: Deshawn Clayton M.D. 09/26/2020 10:02 AM Chest X-Ray 09/26/20 08:28 XR chest 1V portable CLINICAL HISTORY: weakness COMPARISON STUDY: 06/14/2020 FINDINGS: Heart is enlarged. There is mild central pulmonary vascular congestion. There is a small right pleural effusion with associated right basilar atelectasis/consolidation. A small subpulmonic left pleural effusion is also suspected. Prominent left basilar markings are likely atelectatic IMPRESSION: Cardiomegaly and radiographic evidence of mild congestive failure/fluid overload with small bilateral pleural effusions right greater than left. ACT 112: Negative or not required by law. Electronically signed by: Luiz Birmingham M.D. 09/26/2020 8:[address] 09/26/20 08:28 CT head/brain wo con CLINICAL HISTORY: Head trauma. Acute change in mental status. COMPARISON STUDY: No previous studies for comparison. TECHNIQUE: Axial CT of the brain is performed from the vertex to the skull base. IV contrast was not administered for this examination. A dose lowering technique was utilized adhering to the principles of ALARA. CT DOSE: 1597.28 mGy.cm FINDINGS: No intra or extra-axial mass lesions are visualized. There is no CT evidence of acute cortical infarction. There is no evidence of midline shift. There is no acute hemorrhage. No calvarial fractures are visualized. There are patchy white matter hypodensities likely on a small vessel basis. There is a 3 mm for this particular calcification. There is no evidence of pathologic ventricular dilatation. There is no evidence of acute sinusitis There is left frontal scalp edema. The localizer image demonstrates evidence of congestive failure/fluid overload. IMPRESSION: No acute intracranial findings ACT 112: Negative or not required by law. Electronically signed by: Luiz Birmingham M.D. 09/26/2020 9:50 AM Discharge Plan Visit Data Chief Complaint: Fall Stated Complaint: FALL, FOREHEAD HEMATOMA, DIZZINESS ED Provider: Dennis Walker Discharge Problem: Weakness, Fall, Head injury Patient Disposition: Admitted As Inpatient Discharge Instructions Interventions: ED Discharge Assessment Last Done: 09/26/20 13:49
--- NOTE | 2020-09-26 17:10 | Electrocardiogram Report ---
Test Reason : Blood Pressure : / mmHG Vent. Rate : 084 BPM Atrial Rate : 300 BPM P-R Int : 000 ms QRS Dur : 090 ms QT Int : 388 ms P-R-T Axes : 000 -67 069 degrees QTc Int : 458 ms Poor data quality, interpretation may be adversely affected Atrial fibrillation Left axis deviation Nonspecific ST abnormality Abnormal ECG When compared with ECG of 17-JUN-2019 07:30, No significant change was found Confirmed by Charlie Cheung ([id number]) on 09/26/2020 5:09:57 PM Referred By: REFERRED SELF Confirmed By:Faustino Cheung
[2020-09-26] MEDS ORDERED: ONDANSETRON INJ 2 MG/ML 2 ML VIAL IV PRN (18:09)
[2020-09-26] MEDS ORDERED: ACETAMINOPHEN 325 MG TAB PO PRN (18:09)
[2020-09-26] MEDS ORDERED: ALBUTEROL HFA 8 GM INHALER INH PRN (18:09)
[2020-09-26] MEDS ORDERED: POLYETHYLENE (MIRALAX) 17 GM PACK PO PRN (18:09)
[2020-09-26] MEDS ORDERED: LEVOTHYROXINE SODIUM 75 MCG TABLET PO ONE (18:45)
[2020-09-26] MEDS ORDERED: DIGOXIN 0.125 MG TAB PO ONE (18:45)
[2020-09-26] MEDS: FAMOTIDINE 10 MG TABLET PO SCH (19:33)
[2020-09-26] MEDS: PANTOprazole 40 MG TAB PO SCH (19:35)
[2020-09-26] MEDS ORDERED: METOPROLOL TARTRATE 1 MG/ML VIAL IV PRN (20:55)
[2020-09-27] MEDS ORDERED: LEVOTHYROXINE SODIUM 75 MCG TABLET PO SCH (06:30)
[2020-09-27 07:21] LABS: Basophils # (auto) 0.02 K/uL (0-0.2); Basophils % (auto) 0.3 %; Eosinophils # (auto) 0.05 K/uL (0-0.5); Eosinophils % (auto) 0.7 %; Hematocrit (blood only) 41.1 % (37-47); Hemoglobin 13.3 g/dL (12.0-16.0); Lymphocytes # (auto) 0.84 K/uL (1.2-3.4); Lymphocytes % (auto) 12.1 %; Mean Corpuscular Hemoglobin 33.3 pg (25-34); Mean Corpuscular Hgb Conc 32.4 g/dL (32-36); Mean Corpuscular Volume 102.8 fL (80-100); Mean Platelet Volume 11.8 fL (7.4-10.4); Monocytes # (auto) 0.67 K/uL (0.11-0.59); Monocytes % (auto) 9.6 %; Neutrophils # (auto) 5.38 K/uL (1.4-6.5); Neutrophils % (auto) 77.3 %; Platelet Count 190 K/uL (130-400); RDW Coefficient of Variation 13.6 % (11.5-14.5); RDW Standard Deviation 51.2 fL (36.4-46.3); White Blood Count 6.96 K/uL (4.8-10.8)
[2020-09-27 07:50] LABS: BUN Creatinine Ratio 15.7 (10-20); Creatinine Clr Calc Pharmacy 19.7 ml/min; Est GFR (Non-African American) 28.4 ml/min; Magnesium 2.3 mg/dl (1.8-2.4); Potassium 3.8 mmol/L (3.5-5.1)
[2020-09-27] MEDS: PANTOprazole 40 MG TAB PO SCH (08:27)
[2020-09-27] MEDS: FAMOTIDINE 10 MG TABLET PO SCH (08:28)
[2020-09-27] MEDS ORDERED: dilTIAZem HCL 300 MG CAPCR PO SCH (09:00)
[2020-09-27] MEDS ORDERED: APIXABAN 2.5 MG TAB PO SCH (09:30)
[2020-09-27 15:29] VITALS: TEMP 97.7; O2SAT 95
--- NOTE | 2020-09-27 16:45 | Electrocardiogram Report ---
Test Reason : Blood Pressure : / mmHG Vent. Rate : 080 BPM Atrial Rate : 220 BPM P-R Int : 000 ms QRS Dur : 088 ms QT Int : 374 ms P-R-T Axes : 000 -74 074 degrees QTc Int : 431 ms Atrial fibrillation Left axis deviation Abnormal ECG Confirmed by Charlie Cheung ([id number]) on 09/27/2020 4:44:57 PM Referred By: REFERRED SELF Confirmed By:Faustino Cheung
[2020-09-27 18:03] VITALS: BP 124/80; PULSE 110
--- NOTE | 2020-09-27 20:07 | XCELERA ---
[id number]
--- NOTE | 2020-09-28 07:42 | Discharge Summary ---
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 Patient comes into the emergency room today after getting out of bed this morning and feeling weak; she then fell over hitting her head on her bed. She states that she just got up and felt dizzy and went over. She denies losing consciousness and was able to crawl to chair to get up and call her son. She denies any prodrome symptoms, room spinning, or tunneling of vision. She had some increase in dyspnea into this morning and this has gotten better per her after getting the lasix in the EMD. Patient does not endorse any other symptoms through this week. She does however endorse dietary indiscretion with salted crackers over the past couple of days. In the EMD the patient had routine labs drawn, CT scan of the head and neck, and required oxygen which has now been titrated down to 2LNC. Her labs were remarkable for an elevated BNP, glucose of 131. She was given 40 mg IV Lasix with brisk response at this time. Patient feels her breathing has improved quiet a bit, she used to be on a diuretic in the past but not anymore. She also denies that she has missed any of her medications including her Apixaban. Patient will be observed overnight regarding her rhythm, fluid volume status, mental status, and oxygenation needs. Patient received [employer] COVID vaccine in the spring. COVID test is pending on admission. Principal Diagnosis Fall Discharge Exam General: awake, alert, no apparent distress, hematoma to left forehead Head: Normocephalic, hematoma to left forehead, no tenderness to skull or face ENT: PERRL, EOMI, no pharyngeal exudate, mucous membranes moist Neuro: AAO x 3, speech clear and appropriate, strength intact bilaterally 5/5, sensation intact and equal all extremities and dermatomes, no pronator drift Chest: equal rise and fall of the chest, no accessory muscle use, no heaves or thrills, scattered crackles with expiratory wheeze, 2LNC, Cardiac: irregular rate and rhythm, telemetry reviewed-afib, skin warm dry, cap refill <3 seconds, peripheral pulses +2 no JVD, Grade III systolic murmur, no edema GI: NABS x 4 quadrants, soft, nontender to palpation, no rebound, guarding or tenderness Extremities: Normal inspection, no peripheral edema or erythema, calfs nontender to palpation MSK: No cervical or thoracic pain with palpation, no stepoffs, full range of motion to neck, full rom to shoulders, arms, and hip and pelvis without tenderness. Psych: Normal mood and affect Skin: as above, no rash or erythema Discharge Data Allergies Allergy/AdvReac Type Severity Reaction Status Date / Time No Known Drug Allergies Allergy Verified 09/26/20 10:47 Consultations 09/26/20 10:52 ED Decision to Admit Stat Ordered Studies 09/26/20 08:28 CT cervical spine wo con Stat CT head/brain wo con Stat Hospital Course (1) Fall: (1) Fall: Plan: S/p fall with dizziness as primary symptom prior. - Patient exhibiting evidence of volume overload with elevated BNP and mild congestion on CXR - Likely related to valve incompetence in the setting of elevation in intravascular volume - Troponin and ECG normal - Head CT scan negative for acute bleed - Neuroligcal exam normal- and in 24 hours negative. - Cervical spine cleared radiologically and clinically - No other evidence of trauma - Telemetry for 24 hours -No arrythmias noted. -Patient responded to diuretics, will have patient followup with PCP in 1-2 week. -Resume home meds. (2) Severe mitral valve stenosis: Plan: As above, ? complicated with dietary indiscretion and volume increase - She denies any orthopnea normally - ECHO while in house evlaute valve function - Noted dilated atrium on last ECHO (3) Atrial fibrillation: Plan: Rate controlled with diltiazem and Digoxin. She takes her Digoxin MWF - She did not take her medications this morning- ordered 1x dose in EMD of her Apixaban, Digoxin, Cardizem, Synthroid - Rate has improved into the 80s with diuresing although this is at rest - Follow telemetry - Dig level ordered - Continue above medications (4) CKD (chronic kidney disease) stage 3, GFR 30-59 ml/min: Plan: Kidney function stable at her baseline - Avoid nephrotoxic medicatons and renally dose as applicable (5) Hypoxia: Plan: -Improved with diuretics. Likely related to increase pulmonary vascular congestion as above - Symptoms greatly improved with brisk diuresing - Follow- due that she hasn't missed a dose of her apixaban PE unlikely - if her symptoms don't arleen consider CTA of the chest - Wean oxygen for SPo2 >94% - Albuterol PRN for wheezing (6) Hypothyroid: Plan: Continue Synthroid dosing- history of Abhinav thyroiditis (7) GERD (gastroesophageal reflux disease): Plan: Chronic- Continue famotidine and Omeprazole (8) B12 deficiency: Plan: Continue B12 mild macrocytic with normal HGB - no acute needs at this time (2) Severe mitral valve stenosis: (3) Atrial fibrillation: (4) CKD (chronic kidney disease) stage 3, GFR 30-59 ml/min: (5) Hypoxia: (6) Hypothyroid: (7) GERD (gastroesophageal reflux disease): (8) B12 deficiency: Total Time Total Time Spent Total Time Spent (In Minutes): 32 Discharge Plan Discharge Items Patient Disposition: Home - Home Health Services Reason For Visit: FALL, HYPOXIA, CHF Discharge Diagnosis: Fall Activity: Resume your previous activity Non-emergency contact: Primary Care Provider Call non-emergency contact if: you have any medication questions Follow-up/Referrals: Geri Salgado DO [Primary Care Provider] - (A follow up appt will be made for you with your Primary Care Provider. The office was closed at the time of your discharge. A [place] psychiatric secretary will be phoning you with the time and date of your appt. If you cannot keep said appt, please phone the office at [phone].) Diet: Low Sodium (2gm) Addtl Attending Provider Instructions: You have been hospitalized for an acute medical problem. During your stay at [facility], we have made an effort to correct the problem that brought you to the hospital while keeping you as comfortable as possible. Medications were used to bring your condition under control and your discharge instructions will include directions for any medications you should take after leaving the hospital. Please make sure you see your Primary Care Provider as part of your follow up plan. Pending Studies at Discharge: No Stand-Alone Forms: My [facility] [employer], Smoking Cessation Medications and DC Order Prescriptions: Continued diltiazem HCl 300 mg capsule,extended release 24hr 300 mg PO QAM RF: 0 digoxin 125 mcg tablet 125 mcg PO 3XWK RF: 0 apixaban 2.5 mg tablet 2.5 mg PO BID RF: 0 levothyroxine 75 mcg tablet 75 mcg PO QAM RF: 0 famotidine 10 mg tablet 10 mg PO QAM RF: 0 omeprazole 20 mg capsule,delayed release(DR/EC) 20 mg PO DAILY RF: 0 furosemide 20 mg tablet 20 mg PO 3XWK RF: 0 escitalopram oxalate 5 mg tablet 5 mg PO QAM RF: 0 cyanocobalamin (vitamin B-12) [Vitamin B-12] 1,000 mcg Tablet 0 mcg PO QDL RF: 0 Discharge Orders: Discharge Order (Routine); Ordered 09/27/20 Ordered By: Axel Aranda Admission Data Admit Date/Time: 09/26/20 10:58 Attending Provider: Axel Aranda Admit Provider: Axel Aranda Primary Care Provider: Geri Salgado Other Providers: Gunnar Mayer Other Interventions: Discharge Summary Assessment (RN) Last Done: 09/27/20 18:02 Coding Level of Care Code OBSERV/HOSP SAME DATE LVL 3 Diagnoses Fall W19.XXXA Severe mitral valve stenosis I05.0 Atrial fibrillation I48.91 CKD (chronic kidney disease) stage 3, GFR 30-59 ml/min N18.3 Hypoxia R09.02 Hypothyroid E03.9 GERD (gastroesophageal reflux disease) K21.9 B12 deficiency E53.8 Time Spent (min) 35
[2020-09-28] MEDS ORDERED: DIGOXIN 0.125 MG TAB PO SCH (16:00)
== END 2020-09-27 18:26 | disposition home health service (06) ==
LOC: EDINP 08:16 → ED 08:16 → 2N 10:59

== ENCOUNTER 2022-06-14 11:30 | Inpatient (IN) ==
[2022-06-14] MEDS ORDERED: ONDANSETRON INJ 2 MG/ML 2 ML VIAL IV STA (11:43)
[2022-06-14] MEDS ORDERED: SODIUM CHLORIDE 0.9% 500 ML IV SCH (11:45)
--- NOTE | 2022-06-14 12:10 | Emergency Department Note ---
Impression & Plan Hypoxia, Pleural effusion, Hypotension, Vomiting ED Provider Note NAME: ZAFAR LOBO AGE: 86 SEX: F : 1935 ARRIVES VIA: Walk-In INFORMANT: [Patient] ED PROVIDER(S): [Delvis Garcia MD] CHIEF COMPLAINT: GI assessment HISTORY OF PRESENT ILLNESS: The patient is an 86-year-old female who states that recently, her deburrer strip put her on Entresto and increased her diuretic. She states that this was done because of some pedal edema. The patient states that last night at 2:00 and 4:00 in the morning, she vomited. She had a large bowel movement as well. She feels better now and has not vomited since. No abdominal pain, no chest pain. No shortness of breath or fever. The patient states that she is here to be checked. Her family wanted her looked over given her complaints last evening. She does feel markedly better compared to last evening. PMHx/PSHx: See Below SOCIAL HISTORY: See Below. PHYSICAL EXAM: GENERAL: Patient is in no acute distress. Thin and frail. HEENT: No acute trauma, normocephalic atraumatic, mucous membranes moist, no nasal congestion. NECK: No stridor, no adenopathy, no meningismus, trachea is midline. LUNGS: There are decreased breath sounds especially on the right, some scattered crackles are heard, no respiratory distress. HEART: Slightly irregular rhythm, normal rate, subtle systolic murmur heard. ABDOMEN: Soft, nontender, bowel sounds positive, no peritonitis. EXTREMITIES: No cyanosis, moderate bilateral pedal edema, full range of motion of all the joints without pain or difficulty, no signs for acute trauma. NEUROLOGIC: Oriented x 3, no acute motor or sensory deficits, no focal weakness. SKIN: No rash, no jaundice, no diaphoresis. DIFFERENTIAL DIAGNOSIS: ID, viral illness, foodborne illness, dehydration, electrolyte imbalance, UTI, bowel obstruction, among others. EMERGENCY DEPARTMENT COURSE/PROCEDURES: Prior/Outside records reviewed: None. ECG per my interpretation: Indication was weakness. The ECG shows atrial fibrillation with a rate of 60. There is no ST elevation, no PVCs. The QTc is 388. Continuous Cardiac Monitoring per my interpretation: An order was placed for continuous cardiac monitoring. The monitor shows a rate of 75 with atrial fibrillation. Critical Care Note: I have personally spent 42 minutes of critical care time in the direct management of this patient. This includes bedside care, interpretation of diagnostic studies, and testing, discussion with consultants, patient, and family members, and other required patient management activities. This 42 minutes is in excess of all separately billable procedures. MEDICAL DECISION MAKING: There is no leukocytosis or concerning anemia. There is a normal platelet count. No coagulopathy. The creatinine is elevated however, this is baseline when looking back at previous testing. No electrolyte abnormality in need of emergent correction. Lactic acid level is not elevated making severe sepsis less likely. No concerning liver enzyme elevation. TSH was elevated however, the T4 was normal. ECG shows atrial fibrillation, no ischemia. Cardiac enzyme testing x1 is not consistent with acute cardiac injury. Urinalysis does not show infection. Dig level was therapeutic. COVID, influenza and RSV test were negative. Chest film per my review shows a fairly large right pleural effusion, this has increased in size when looking back at previous films. On exam, the p atient was slightly hypotensive and at times hypoxic, especially with exertion. The patient received IV saline, a total of 1 L. She given IV Zofran and IV cefepime. The cefepime was given for empiric antibiotic coverage. The patient is persistently hypotensive and persistently hypoxic--when she slept, her O2 saturation dropped to the 70s. Walking to the bathroom, she was in the low 80s. I did speak to the patient about a hospital stay, she did consent. Case management was consulted, the on-call hospitalist was consulted. The patient presents with weakness, vomiting and hypoxia. She was found to be somewhat hypotensive as well as hypoxic. I suspect her presentation is multifactorial. Her new meds are likely at least partly responsible. The right pleural effusion is larger today and is likely the biggest component to her dyspnea/hypoxia. DISPOSITION: Patient's presentation and findings warrant a hospital stay. Past Med/Surg History Medical History Atrial fibrillation A FEW YEARS AGO , CARDIOVERSION UNSUCCESSFUL. FOLLOW WITH DR POZO TAKES DIG AND DILTIAZEM AND ELIQUIS Atrial fibrillation Chronic anticoagulation (~03/05/21) Chronic diastolic (congestive) heart failure Chronic kidney disease, stage 3 CARPENTER (dyspnea on exertion) Extremity edema TAKES LASIX NEEDED Abhinav's thyroiditis Pleural effusion Recurrent right pleural effusion Severe mitral valve stenosis Shortness of breath Surgical History History of laparotomy Hx of colonoscopy Hx of inguinal hernia surgery (04/21/19) Family History Sister Hearing loss Heart disease Brother Hearing loss Heart disease Other No family history of adverse response to anesthesia No family history of bleeding disorder Denies family history of Kidney disease Social History Smoking Status: Never smoker Second Hand Exposure: No; Hx Alcohol Use: No Hx Substance Use: No Preferred Language: [place] Communication Ability: Effective Visual Impairment: No Limitations Shampoo Technician Required: No Beliefs That Will Affect Care: None marital status: / Current Living Situation: Alone Current Living Situation Comment: apartment current occupational status: retired Feels Safe at Home: Yes Assistive Devices: None Allergies Allergies Allergy/AdvReac Type Severity Reaction Status Date / Time No Known Drug Allergies Allergy Unknown Verified 06/14/22 15:42 Home Meds Home Medications Medication Instructions Recorded Confirmed apixaban 2.5 mg tablet 2.5 mg PO BID 10/18/18 06/14/22 digoxin 125 mcg (0.125 mg) tablet 125 mcg PO [id number] 10/18/18 06/14/22 levothyroxine 75 mcg tablet 75 mcg PO QAM 10/18/18 06/14/22 cyanocobalamin (vitamin B-12) 1,000 mcg PO QDL 09/26/20 06/14/22 1,000 mcg tablet (Vitamin B-12) bumetanide 0.5 mg tablet 1 mg PO Q OTHER DAY 06/14/22 06/14/22 diltiazem HCl 360 mg 1 mg PO DAILY 06/14/22 06/14/22 capsule,extended release 24 hr famotidine 20 mg tablet 20 mg PO QAM 06/14/22 06/14/22 hydrocortisone 2.5 % topical cream 1 applic OK UD 06/14/22 06/14/22 with perineal applicator nystatin 100,000 unit/gram topical 1 applic topical UD 06/14/22 06/14/22 ointment sacubitril 24 mg-valsartan 26 mg 1 tab PO BID 06/14/22 06/14/22 tablet (Entresto) Results & Data (ED) Vital Signs Vital Signs - 24 hr 06/14/22 11:35 06/14/22 12:50 06/14/22 13:15 Temperature 36.9 C Temperature Source Temporal Artery Scan Pulse Rate 75 60 Pulse Rate [Finger] Pulse Rate from SpO2 Sensor Pulse Rhythm Regular Respiratory Rate 18 22 Respiratory Effort / Characteristics Non-Labored Spontaneous Respiratory Depth Normal Blood Pressure 93/55 L Blood Pressure [Right Arm] Blood Pressure Mean 67 Blood Pressure Mean [Right Arm] Blood Pressure Position Sitting Pulse Oximetry 92 83 L 95 Oxygen Delivery Method Room Air Room Air Nasal Cannula Oxygen Flow Rate 1 Sepsis Recent Fever Within 48 Hours No Sepsis New/Unexplained Change in Mental Status No Sepsis Action Taken by Nursing No Action Required 06/14/22 13:10 06/14/22 13:10 06/14/22 13:20 Temperature Temperature Source Pulse Rate Pulse Rate [Finger] 55 L Pulse Rate from SpO2 Sensor 65 57 L Pulse Rhythm Respiratory Rate Respiratory Effort / Characteristics Respiratory Depth Blood Pressure Blood Pressure [Right Arm] 91/46 L Blood Pressure Mean Blood Pressure Mean [Right Arm] 61 Blood Pressure Position Pulse Oximetry 87 L 97 Oxygen Delivery Method Room Air Nasal Cannula Oxygen Flow Rate 1 Sepsis Recent Fever Within 48 Hours Sepsis New/Unexplained Change in Mental Status Sepsis Action Taken by Nursing 06/14/22 13:29 06/14/22 13:30 06/14/22 13:31 Temperature Temperature Source Pulse Rate Pulse Rate [Finger] Pulse Rate from SpO2 Sensor 67 62 Pulse Rhythm Respiratory Rate Respiratory Effort / Characteristics Respiratory Depth Blood Pressure 88/45 L Blood Pressure [Right Arm] Blood Pressure Mean 59 Blood Pressure Mean [Right Arm] Blood Pressure Position Pulse Oximetry 84 L 81 L Oxygen Delivery Method Room Air Room Air Oxygen Flow Rate Sepsis Recent Fever Within 48 Hours Sepsis New/Unexplained Change in Mental Status Sepsis Action Taken by Nursing 06/14/22 13:40 06/14/22 13:50 06/14/22 14:00 Temperature Temperature Source Pulse Rate Pulse Rate [Finger] Pulse Rate from SpO2 Sensor 65 70 Pulse Rhythm Respiratory Rate Respiratory Effort / Characteristics Respiratory Depth Blood Pressure 98/48 L Blood Pressure [Right Arm] Blood Pressure Mean 64 Blood Pressure Mean [Right Arm] Blood Pressure Position Pulse Oximetry 76 L 94 Oxygen Delivery Method Room Air Nasal Cannula Oxygen Flow Rate 2 Sepsis Recent Fever Within 48 Hours Sepsis New/Unexplained Change in Mental Status Sepsis Action Taken by Nursing 06/14/22 14:00 06/14/22 14:10 06/14/22 14:20 Temperature Temperature Source Pulse Rate Pulse Rate [Finger] Pulse Rate from SpO2 Sensor 64 67 70 Pulse Rhythm Respiratory Rate Respiratory Effort / Characteristics Respiratory Depth Blood Pressure Blood Pressure [Right Arm] Blood Pressure Mean Blood Pressure Mean [Right Arm] Blood Pressure Position Pulse Oximetry 94 86 L 83 L Oxygen Delivery Method Oxygen Flow Rate Sepsis Recent Fever Within 48 Hours Sepsis New/Unexplained Change in Mental Status Sepsis Action Taken by Nursing 06/14/22 14:30 06/14/22 14:31 06/14/22 14:31 Temperature Temperature Source Pulse Rate Pulse Rate [Finger] Pulse Rate from SpO2 Sensor 72 73 Pulse Rhythm Respiratory Rate Respiratory Effort / Characteristics Respiratory Depth Blood Pressure 94/62 L Blood Pressure [Right Arm] Blood Pressure Mean 72 Blood Pressure Mean [Right Arm] Blood Pressure Position Pulse Oximetry 80 L 95 Oxygen Delivery Method Oxygen Flow Rate Sepsis Recent Fever Within 48 Hours Sepsis New/Unexplained Change in Mental Status Sepsis Action Taken by Nursing 06/14/22 14:40 06/14/22 14:50 06/14/22 14:58 Temperature Temperature Source Pulse Rate Pulse Rate [Finger] Pulse Rate from SpO2 Sensor 72 70 69 Pulse Rhythm Respiratory Rate Respiratory Effort / Characteristics Respiratory Depth Blood Pressure Blood Pressure [Right Arm] Blood Pressure Mean Blood Pressure Mean [Right Arm] Blood Pressure Position Pulse Oximetry 92 94 93 Oxygen Delivery Method Oxygen Flow Rate Sepsis Recent Fever Within 48 Hours Sepsis New/Unexplained Change in Mental Status Sepsis Action Taken by Nursing 06/14/22 15:00 06/14/22 15:01 06/14/22 15:10 Temperature Temperature Source Pulse Rate Pulse Rate [Finger] Pulse Rate from SpO2 Sensor 70 Pulse Rhythm Respiratory Rate Respiratory Effort / Characteristics Respiratory Depth Blood Pressure 78/49 L Blood Pressure [Right Arm] Blood Pressure Mean 58 Blood Pressure Mean [Right Arm] Blood Pressure Position Pulse Oximetry 87 L 90 Oxygen Delivery Method Oxygen Flow Rate Sepsis Recent Fever Within 48 Hours Sepsis New/Unexplained Change in Mental Status Sepsis Action Taken by Nursing 06/14/22 15:20 06/14/22 15:25 06/14/22 15:25 Temperature Temperature Source Pulse Rate Pulse Rate [Finger] Pulse Rate from SpO2 Sensor 72 72 Pulse Rhythm Respiratory Rate Respiratory Effort / Characteristics Respiratory Depth Blood Pressure 86/38 L Blood Pressure [Right Arm] Blood Pressure Mean 54 Blood Pressure Mean [Right Arm] Blood Pressure Position Pulse Oximetry 94 93 Oxygen Delivery Method Oxygen Flow Rate Sepsis Recent Fever Within 48 Hours Sepsis New/Unexplained Change in Mental Status Sepsis Action Taken by Nursing 06/14/22 15:30 06/14/22 15:30 06/14/22 15:40 Temperature Temperature Source Pulse Rate 66 62 Pulse Rate [Finger] Pulse Rate from SpO2 Sensor 61 Pulse Rhythm Respiratory Rate 20 17 Respiratory Effort / Characteristics Respiratory Depth Blood Pressure 91/36 L Blood Pressure [Right Arm] Blood Pressure Mean 54 Blood Pressure Mean [Right Arm] Blood Pressure Position Pulse Oximetry 92 Oxygen Delivery Method Oxygen Flow Rate Sepsis Recent Fever Within 48 Hours Sepsis New/Unexplained Change in Mental Status Sepsis Action Taken by Nursing 06/14/22 15:50 Temperature Temperature Source Pulse Rate 68 Pulse Rate [Finger] Pulse Rate from SpO2 Sensor 66 Pulse Rhythm Respiratory Rate 20 Respiratory Effort / Characteristics Respiratory Depth Blood Pressure Blood Pressure [Right Arm] Blood Pressure Mean Blood Pressure Mean [Right Arm] Blood Pressure Position Pulse Oximetry 93 Oxygen Delivery Method Nasal Cannula Oxygen Flow Rate 3 Sepsis Recent Fever Within 48 Hours Sepsis New/Unexplained Change in Mental Status Sepsis Action Taken by Usp Medications Current Medication List: was personally reviewed by me Laboratory Data Attestation: I reviewed the patient's lab results. 06/14/22 12:09 06/14/22 12:09 Lab Results 06/14/22 06/14/22 06/14/22 Range/Units 12:09 12:09 12:09 WBC 5.71 (4.8-10.8) K/ul RBC 3.82 L (4.20-5.40) M/uL Hgb 12.9 (12.0-16.0) g/dl Hct 38.3 (37.0-47.0) % MCV 100.3 H (80.0-100.0) fL MCH 33.8 (25.0-34.0) pg MCHC 33.7 (32.0-36.0) g/dL RDW Std Deviation 52.3 H (36.4-46.3) fL RDW Coeff of Job 14.2 (11.5-14.5) % Plt Count 143 (130-400) K/uL MPV 11.6 (9.4-12.4) fL Immature Gran % (Auto) 0.2 % Neut % (Auto) 90.3 % Lymph % (Auto) 3.3 % [place] % (Auto) 5.8 % Eos % (Auto) 0.2 % Baso % (Auto) 0.2 % Neut # (Auto) 5.16 (1.40-6.50) K/uL Lymph # (Auto) 0.19 L (1.2-3.4) K/uL [place] # (Auto) 0.33 (0.11-0.59) K/uL Eos # (Auto) 0.01 (0-0.50) K/uL Baso # (Auto) 0.01 (0-0.2) K/uL Immature Gran # (Auto) 0.01 (0.01-0.20) K/uL RBC Morphology Unremarkable PT 11.9 (9.0-12.0) Seconds INR 1.1 (0.9-1.1) Sodium 138 (136-145) mmol/L Potassium 4.4 (3.5-5.1) mmol/L Chloride 104 (98-107) mmol/L Carbon Dioxide 27 (21-32) mmol/L Anion Gap 7 (3-11) BUN 45 H (6-23) mg/dl Creatinine 1.61 H (0.6-1.2) mg/dl Est Cr Clr Drug Dosing Not Reportable Est GFR ( Amer) 32.8 ml/min Est GFR (Non-Af Amer) 28.3 ml/min BUN/Creatinine Ratio 28.0 H (10-20) Glucose 104 H (70-99(Fasting)) mg/dl Lactate (0.4-2.0) mmol/L Calcium 9.0 (8.6-10.3) mg/dl Magnesium 2.1 (1.7-2.4) mg/dl Total Bilirubin 1.1 H (0.2-1.0) mg/dl AST 27 (13-39) U/L ALT 20 (7-52) U/L Alkaline Phosphatase 70 (34-104) U/L Troponin I High Sens 9.7 (0-14) pg/ml Total Protein 7.2 (6.0-8.3) gm/dl Albumin 3.7 (3.4-5.0) gm/dl Globulin 3.5 (2.5-4.0) gm/dl Albumin/Globulin Ratio 1.1 (0.9-2) TSH (0.300-4.500) uIu/ml Free T4 (0.61-1.60) ng/dl Urine Color Urine Appearance (Clear) Urine pH (4.5-7.5) Ur Specific [place] (1.000-1.030) Urine Protein (Negative) Urine Glucose (UA) (Negative) Urine Ketones (Negative) Urine Blood (Negative) Urine Nitrite (Negative) Urine Bilirubin (Negative) Urine Urobilinogen (Negative) Ur Leukocyte Esterase (Negative) Digoxin (0.8-2.0) ng/ml SARS-CoV-2 (PCR) (Negative) Influenza Type A (PCR) (Neg) Influenza Type B (PCR) (Neg) RSV (RT-PCR) (Neg) 06/14/22 06/14/22 06/14/22 Range/Units 12:09 12:09 12:56 WBC (4.8-10.8) K/ul RBC (4.20-5.40) M/uL Hgb (12.0-16.0) g/dl Hct (37.0-47.0) % MCV (80.0-100.0) fL MCH (25.0-34.0) pg MCHC (32.0-36.0) g/dL RDW Std Deviation (36.4-46.3) fL RDW Coeff of Job (11.5-14.5) % Plt Count (130-400) K/uL MPV (9.4-12.4) fL Immature Gran % (Auto) % Neut % (Auto) % Lymph % (Auto) % [place] % (Auto) % Eos % (Auto) % Baso % (Auto) % Neut # (Auto) (1.40-6.50) K/uL Lymph # (Auto) (1.2-3.4) K/uL [place] # (Auto) (0.11-0.59) K/uL Eos # (Auto) (0-0.50) K/uL Baso # (Auto) (0-0.2) K/uL Immature Gran # (Auto) (0.01-0.20) K/uL RBC Morphology PT (9.0-12.0) Seconds INR (0.9-1.1) Sodium (136-145) mmol/L Potassium (3.5-5.1) mmol/L Chloride (98-107) mmol/L Carbon Dioxide (21-32) mmol/L Anion Gap (3-11) BUN (6-23) mg/dl Creatinine (0.6-1.2) mg/dl Est Cr Clr Drug Dosing Est GFR ( Amer) ml/min Est GFR (Non-Af Amer) ml/min BUN/Creatinine Ratio (10-20) Glucose (70-99(Fasting)) mg/dl Lactate (0.4-2.0) mmol/L Calcium (8.6-10.3) mg/dl Magnesium (1.7-2.4) mg/dl Total Bilirubin (0.2-1.0) mg/dl AST (13-39) U/L ALT (7-52) U/L Alkaline Phosphatase (34-104) U/L Troponin I High Sens (0-14) pg/ml Total Protein (6.0-8.3) gm/dl Albumin (3.4-5.0) gm/dl Globulin (2.5-4.0) gm/dl Albumin/Globulin Ratio (0.9-2) TSH 5.505 H (0.300-4.500) uIu/ml Free T4 1.19 (0.61-1.60) ng/dl Urine Color Urine Appearance (Clear) Urine pH (4.5-7.5) Ur Specific [place] (1.000-1.030) Urine Protein (Negative) Urine Glucose (UA) (Negative) Urine Ketones (Negative) Urine Blood (Negative) Urine Nitrite (Negative) Urine Bilirubin (Negative) Urine Urobilinogen (Negative) Ur Leukocyte Esterase (Negative) Digoxin 1.2 (0.8-2.0) ng/ml SARS-CoV-2 (PCR) NEGATIVE (Negative) Influenza Type A (PCR) Negative (Neg) Influenza Type B (PCR) Negative (Neg) RSV (RT-PCR) Negative (Neg) 06/14/22 06/14/22 Range/Units 12:56 14:48 WBC (4.8-10.8) K/ul RBC (4.20-5.40) M/uL Hgb (12.0-16.0) g/dl Hct (37.0-47.0) % MCV (80.0-100.0) fL MCH (25.0-34.0) pg MCHC (32.0-36.0) g/dL RDW Std Deviation (36.4-46.3) fL RDW Coeff of Job (11.5-14.5) % Plt Count (130-400) K/uL MPV (9.4-12.4) fL Immature Gran % (Auto) % Neut % (Auto) % Lymph % (Auto) % [place] % (Auto) % Eos % (Auto) % Baso % (Auto) % Neut # (Auto) (1.40-6.50) K/uL Lymph # (Auto) (1.2-3.4) K/uL [place] # (Auto) (0.11-0.59) K/uL Eos # (Auto) (0-0.50) K/uL Baso # (Auto) (0-0.2) K/uL Immature Gran # (Auto) (0.01-0.20) K/uL RBC Morphology PT (9.0-12.0) Seconds INR (0.9-1.1) Sodium (136-145) mmol/L Potassium (3.5-5.1) mmol/L Chloride (98-107) mmol/L Carbon Dioxide (21-32) mmol/L Anion Gap (3-11) BUN (6-23) mg/dl Creatinine (0.6-1.2) mg/dl Est Cr Clr Drug Dosing Est GFR ( Amer) ml/min Est GFR (Non-Af Amer) ml/min BUN/Creatinine Ratio (10-20) Glucose (70-99(Fasting)) mg/dl Lactate 1.3 (0.4-2.0) mmol/L Calcium (8.6-10.3) mg/dl Magnesium (1.7-2.4) mg/dl Total Bilirubin (0.2-1.0) mg/dl AST (13-39) U/L ALT (7-52) U/L Alkaline Phosphatase (34-104) U/L Troponin I High Sens (0-14) pg/ml Total Protein (6.0-8.3) gm/dl Albumin (3.4-5.0) gm/dl Globulin (2.5-4.0) gm/dl Albumin/Globulin Ratio (0.9-2) TSH (0.300-4.500) uIu/ml Free T4 (0.61-1.60) ng/dl Urine Color Dark Yellow Urine Appearance Clear (Clear) Urine pH 5.0 (4.5-7.5) Ur Specific [place] 1.016 (1.000-1.030) Urine Protein Negative (Negative) Urine Glucose (UA) Negative (Negative) Urine Ketones Negative (Negative) Urine Blood Negative (Negative) Urine Nitrite Negative (Negative) Urine Bilirubin Negative (Negative) Urine Urobilinogen Negative (Negative) Ur Leukocyte Esterase Negative (Negative) Digoxin (0.8-2.0) ng/ml SARS-CoV-2 (PCR) (Negative) Influenza Type A (PCR) (Neg) Influenza Type B (PCR) (Neg) RSV (RT-PCR) (Neg) Administered Medications Discontinued Medications Sodium Chloride (Nss) 500 mls @ 999 mls/hr IV .Q31M SADI Stop: 06/14/22 12:15 Last Infusion: 06/14/22 13:14 Dose: 0 mls/hr Documented By: [id number] Admin: 06/14/22 12:14 Dose: 999 mls/hr Documented By: [id number] Sodium Chloride (Nss 1000ml) 500 mls @ 999 mls/hr IV .Q31M ONE Stop: 06/14/22 13:55 Last Infusion: 06/14/22 15:03 Dose: 0 mls/hr Documented By: [id number] Admin: 06/14/22 13:48 Dose: 999 mls/hr Documented By: [id number] Cefepime HCl (Maxipime) 2,000 mg in 20 mls @ 5 mls/min IV NOW STA; Protocol Stop: 06/14/22 13:54 Last Admin: 06/14/22 15:27 Dose: 5 mls/min Documented By: [email or web address] Ondansetron HCl (Ondansetron Inj 2 Mg/Ml 2 Ml Vial) 4 mg IV NOW STA Stop: 06/14/22 11:44 Last Admin: 06/14/22 12:14 Dose: 4 mg Documented By: [id number] Imaging Data Radiologist's Impression: Chest X-Ray 06/14/22 11:43 XR chest 1V portable CLINICAL HISTORY: weakness TECHNIQUE: Single frontal radiograph of the chest was obtained. Comparison: Comparison is made to chest radiograph 06/12/2022 FINDINGS: No lines and tubes are seen. Cardiomegaly is noted. Moderate right pleural effusion is seen, increased from prior. There is underlying atelectasis. Possible trace left pleural effusion. IMPRESSION: Moderate right pleural effusion, increased from prior exam, with possible trace left effusion. Stable cardiomegaly. ACT 112: Negative or not required by law. Electronically signed by: Ryan Burk M.D. 06/14/2022 12:09 PM Discharge Plan Visit Data Chief Complaint: GI Assessment Stated Complaint: GI ASSESSMENT ED Provider: Delvis Garcia Discharge Problem: Hypoxia, Pleural effusion, Hypotension, Vomiting Patient Disposition: Admitted As Inpatient Condition: Fair Forms Stand Alone Forms: My [facility] Prescriptions Prescriptions: No Action digoxin 125 mcg tablet 125 mcg PO [id number] Rx Instructions: Thursday, Thursday, Thursday apixaban 2.5 mg tablet 2.5 mg PO BID levothyroxine 75 mcg tablet 75 mcg PO QAM cyanocobalamin (vitamin B-12) [Vitamin B-12] 1,000 mcg Tablet 1,000 mcg PO QDL famotidine 20 mg tablet 20 mg PO QAM Entresto 24-26 mg tablet 1 tab PO BID diltiazem HCl 360 mg capsule,extended release 24hr 1 mg PO DAILY bumetanide 0.5 mg tablet 1 mg PO Q OTHER DAY Rx Instructions: pt states just starting to take it this way nystatin 100,000 unit/gram ointment 1 applic TOPICAL UD hydrocortisone 2.5 % cream with perineal applicator 1 applic OK UD Referrals Referrals: Geri Salgado DO [Primary Care Provider] -
[2022-06-14 12:26] LABS: Hematocrit (blood only) 38.3 % (37.0-47.0); Hemoglobin 12.9 g/dl (12.0-16.0); Mean Corpuscular Hemoglobin 33.8 pg (25.0-34.0); Mean Corpuscular Hgb Conc 33.7 g/dL (32.0-36.0); Mean Corpuscular Volume 100.3 fL (80.0-100.0); Mean Platelet Volume 11.6 fL (9.4-12.4); Platelet Count 143 K/uL (130-400); RDW Coefficient of Variation 14.2 % (11.5-14.5); RDW Standard Deviation 52.3 fL (36.4-46.3); Red Blood Count 3.82 M/uL (4.20-5.40); White Blood Count 5.71 K/ul (4.8-10.8)
[2022-06-14 12:41] LABS: Alanine Aminotransferase 20 U/L (7-52); Albumin Globulin Ratio 1.1 (0.9-2); Albumin Level 3.7 gm/dl (3.4-5.0); Alkaline Phosphatase 70 U/L (34-104); Anion Gap 7 (3-11); Aspartate Aminotransferase 27 U/L (13-39); Bilirubin,Total 1.1 mg/dl (0.2-1.0); Blood Urea Nitrogen 45 mg/dl (6-23); Carbon Dioxide 27 mmol/L (21-32); Chloride 104 mmol/L (98-107); Est GFR (African American) 32.8 ml/min; Est GFR (Non-African American) 28.3 ml/min; Globulin 3.5 gm/dl (2.5-4.0); Glucose 104 mg/dl (70-99(Fasting)); Magnesium 2.1 mg/dl (1.7-2.4); Potassium 4.4 mmol/L (3.5-5.1); Sodium 138 mmol/L (136-145); Total Protein 7.2 gm/dl (6.0-8.3)
[2022-06-14 12:48] LABS: Troponin I High Sensitivity 9.7 pg/ml (0-14)
[2022-06-14 12:57] LABS: Thyroid Stimulating Hormone 5.505 uIu/ml (0.300-4.500)
[2022-06-14 13:03] LABS: INR 1.1 (0.9-1.1); Prothrombin Time 11.9 Seconds (9.0-12.0)
[2022-06-14 13:22] LABS: Basophils # (auto) 0.01 K/uL (0-0.2); Basophils % (auto) 0.2 %; Eosinophils # (auto) 0.01 K/uL (0-0.50); Eosinophils % (auto) 0.2 %; Immature Granulocytes # (auto) 0.01 K/uL (0.01-0.20); Immature Granulocytes % (auto) 0.2 %; Lymphocytes # (auto) 0.19 K/uL (1.2-3.4); Lymphocytes % (auto) 3.3 %; Monocytes # (auto) 0.33 K/uL (0.11-0.59); Monocytes % (auto) 5.8 %; Neutrophils # (auto) 5.16 K/uL (1.40-6.50); Neutrophils % (auto) 90.3 %; RBC Morphology Unremarkable
[2022-06-14 13:23] LABS: Appearance Urine Clear (Clear); Bilirubin Urine Negative (Negative); Blood Urine Negative (Negative); Color Urine Dark Yellow; Glucose Urine UA Negative (Negative); Ketones Urine Negative (Negative); Leukocyte Esterase Urine Negative (Negative); Nitrite Urine Negative (Negative); Protein Urine Negative (Negative); Specific Gravity Urine 1.016 (1.000-1.030); Urobilinogen Urine Negative (Negative)
[2022-06-14] MEDS ORDERED: SODIUM CHLORIDE 0.9% 1000ML 500 ML IV ONE (13:25)
[2022-06-14 13:32] LABS: T4 Free Thyroxine 1.19 ng/dl (0.61-1.60)
[2022-06-14] MEDS ORDERED: CEFEPIME 2,000 MG/20 ML VIAL IV STA (13:51)
[2022-06-14 14:07] LABS: Influenza A virus by PCR Negative (Neg); Influenza B virus by PCR Negative (Neg); RSV by PCR Negative (Neg); SARS CoV2 RNA(COVID-19) Ceph NEGATIVE (Negative)
[2022-06-14] MEDS ORDERED: POLYETHYLENE (MIRALAX) 17 GM PACK PO PRN (16:22)
[2022-06-14] MEDS ORDERED: MAGNESIUM HYDROXIDE SUSP 30 ML UDC PO PRN (16:22)
[2022-06-14] MEDS ORDERED: ACETAMINOPHEN 325 MG TAB PO PRN (16:22)
[2022-06-14] MEDS ORDERED: ONDANSETRON INJ 2 MG/ML 2 ML VIAL IV PRN (16:22)
[2022-06-14] MEDS ORDERED: ALUMINUM/MAGNESIUM SUSP 30 ML UDC PO PRN (16:22)
--- NOTE | 2022-06-14 16:27 | History & Physical Report ---
Date of Service June 14, 2022 Assessment & Plan (1) Pleural effusion: Plan: Seems most fitting that her worsening fatigue and worsening dyspnea/hypoxia on exertion probably related to the worsening right pleural effusion, which is in turn likely related to her chronic diastolic CHF and sodium intake. Given that she is having dyspnea on exertion and having an oxygen requirement, reasonable to consider thoracentesisask pulmonary to see her in this regard. Eliquis on hold for now. (2) Chronic diastolic (congestive) heart failure: Plan: I suspect her hypotension relates to her Entresto, and/or escalated diuresis for this. Currently she appears euvolemic to slightly dry other than her right pleural effusion. Given that her blood pressure is somewhat low, holding her Bumex and Entresto for now. (3) Constipation: Plan: Nausea and vomiting likely related to this. She has had a bowel movement. Regular diet. Follow. (4) Atrial fibrillation: Plan: Rate controlled, chronically anticoagulated on Eliquisthis is on hold for now for the potential of thoracentesis. Diltiazem also on hold given that her blood pressures are fairly lowbut right now rates are good, can treat as needed if needed, otherwise anticipate resuming home meds as her blood pressure allows (5) DVT prophylaxis: Plan: Chronically on Eliquisresume after thoracentesis (or after pulmonary evaluation if no thoracentesis to be done). Asymmetry in her lower extremity edema appears to be chronic per her history, she does not have calf tenderness, and given that she is chronically anticoagulatedall are reasons to have a very low suspicion for VTE. (6) Discharge planning issues: Plan: Admit to telemetry given her hypotension, anticipate being able to return home once all of the above issues are remedied. Admission and Anticipated Discharge Date Admission Date: June 14, 2022 History of Present Illness Chief Complaint: Fatigue Primary Care Provider: Geri Salgado DO Patient is a very pleasant 86-year-old femaleshe actually came to the ER at the urging of her children. Is a little bit hard to tell if they urged her to come because of nausea and vomiting (which has since resolved), fatigue (which has been going on for several months but seems to be worsening), low blood pressure (but I am not sure that she was aware of that prior to coming to the ER), or dyspnea on exertion (which seems to be her most pressing acute problem but also 1 that she only vaguely admits to symptoms of over the last few weeks at home. Nausea and vomiting: She was feeling okay yesterday, and then had a few episodes of vomiting through the night and early in the morning. She had not had a bowel movement in a few daysnotes she has chronic constipation, had taken MiraLAX, had a fairly sizable bowel movement today and no longer feels nauseated. Fatigue: On direct questioning she admits to rather significant fatigue, seems to be somewhat oppressive, notes that she does not really have the ability to do what she normally likes to do, it might be worse over the last few weeks but that might be this examiner's interpretation of unspoken communication, and at the same time its been going on for quite a whileprobably at least a few months. Dyspnea on exertion: This seems to be worse, and the ER physician noted that she desaturates to the mid 80s even going to and from the bathroom. The patient herself is "pleasantly evasive" on directed questioning in this regard, but does note that probably over the last few weeks she has had a harder time doing what she normally likes to do, and whenever she exerts more (such as running the sweeper) she notices feeling more short of breath than usual. This is in the context of a known right pleural effusion, escalated diuresis and escalated Entresto, and admittedly fairly poor adherence to a low-sodium diet. Notes worsening bilateral lower extremity edemaleft worse than right, no painnotes that her left always swells more than the right when she has swelling. Low blood pressureher pressures have been noted to be somewhat on the low sideshe does not discuss about this at home, but does note that she was just started on Entresto by her speech language specialist about 2 weeks ago, and the dose escalated last week. Allergies Allergy/AdvReac Type Severity Reaction Status Date / Time No Known Drug Allergies Allergy Unknown Verified 06/14/22 15:42 Home Medications Medication Instructions Recorded Confirmed Type apixaban 2.5 mg tablet 2.5 mg PO BID 10/18/18 06/14/22 History digoxin 125 mcg (0.125 mg) tablet 125 mcg PO 3XWK 10/18/18 06/14/22 History levothyroxine 75 mcg tablet 75 mcg PO QAM 10/18/18 06/14/22 History cyanocobalamin (vitamin B-12) 1,000 mcg PO QDL 09/26/20 06/14/22 History 1,000 mcg tablet (Vitamin B-12) bumetanide 0.5 mg tablet 1 mg PO Q OTHER DAY 06/14/22 06/14/22 History diltiazem HCl 360 mg 1 mg PO DAILY 06/14/22 06/14/22 History capsule,extended release 24 hr famotidine 20 mg tablet 20 mg PO QAM 06/14/22 06/14/22 History hydrocortisone 2.5 % topical cream 1 applic [place] UD 06/14/22 06/14/22 History with perineal applicator nystatin 100,000 unit/gram topical 1 applic topical UD 06/14/22 06/14/22 History ointment sacubitril 24 mg-valsartan 26 mg 1 tab PO BID 06/14/22 06/14/22 History tablet (Entresto) Past Med/Surg History Medical History Atrial fibrillation A FEW YEARS AGO , CARDIOVERSION UNSUCCESSFUL. FOLLOW WITH DR POZO TAKES DIG AND DILTIAZEM AND ELIQUIS Atrial fibrillation Chronic anticoagulation (~03/05/21) Chronic diastolic (congestive) heart failure Chronic kidney disease, stage 3 CARPENTER (dyspnea on exertion) Extremity edema TAKES LASIX NEEDED Abhinav's thyroiditis Pleural effusion Recurrent right pleural effusion Severe mitral valve stenosis Shortness of breath Surgical History History of laparotomy SMALL BOWEL OBSTRUCTION DUE TO ADHESION 2018 Hx of colonoscopy Hx of inguinal hernia surgery (04/21/19) Right Open Inguinal Hernia with Mesh Dr. Kumar 04/21/19 Family History Sister Hearing loss Heart disease Brother Hearing loss Heart disease Other No family history of adverse response to anesthesia No family history of bleeding disorder Denies family history of Kidney disease Social History Smoking Status: Never smoker Second Hand Exposure: No; Hx Alcohol Use: No Hx Substance Use: No Preferred Language: Romanian Communication Ability: Effective Visual Impairment: No Limitations Commissions Analyst Required: No Beliefs That Will Affect Care: None marital status: / Current Living Situation: Alone Current Living Situation Comment: apartment current occupational status: retired Feels Safe at Home: Yes Assistive Devices: None Review of Systems Review of Systems: All systems reviewed & are unremarkable except as noted in HPI & below Physical Exam Physical Exam: In general she is awake and alert pleasant no distress. HEENT normocephalic atraumatic mucous membranes moist. Cardio is regular no rubs murmurs or gallops. Lungs show diminished air entry base right to about the mid right lung field, otherwise fairly clear without rales rhonchi or wheezes good effort. Abdomen is soft nondistended nontender no masses organomegaly. Extremities without cyanosis or clubbing, she does have left greater than right lower extremity edema, no calf tenderness. Neuro shows cranial nerves II through XII to be grossly intact gross motor and sensory are intact. Skin shows a little bit of venous stasis changes bilateral lower extremities, otherwise no rashes pallor or icterus. CBC, PT/INR, BMP, LFTs, mag, troponin, TSH and free T4 noted, chest x-ray reviewed personally in addition to radiology report, and personally compared to the chest x-ray from earlier this weekalso pulled up on the screen in the room to show and share with the patient. Results & Data Results & Data Vital Signs (Past 12 Hours) Vital Signs Temp Pulse Pulse Resp BP BP Pulse Ox 06/14/22 15:50 68 20 93 06/14/22 15:40 62 17 92 06/14/22 15:30 66 20 06/14/22 15:30 91/36 L 06/14/22 15:25 86/38 L 06/14/22 15:25 93 06/14/22 15:20 94 06/14/22 15:10 90 06/14/22 15:01 87 L 06/14/22 15:00 78/49 L 06/14/22 14:58 93 06/14/22 14:50 94 06/14/22 14:40 92 06/14/22 14:31 95 06/14/22 14:31 94/62 L 06/14/22 14:30 80 L 06/14/22 14:20 83 L 06/14/22 14:10 86 L 06/14/22 14:00 94 06/14/22 14:00 98/48 L 06/14/22 13:50 94 06/14/22 13:40 76 L 06/14/22 13:31 81 L 06/14/22 13:30 88/45 L 06/14/22 13:29 84 L 06/14/22 13:20 97 06/14/22 13:10 55 L 91/46 L 06/14/22 13:10 87 L 06/14/22 13:15 95 06/14/22 12:50 60 22 83 L 06/14/22 11:35 98.4 F 75 18 93/55 L 92 O2 Del Method O2 Flow Rate 06/14/22 15:50 Nasal Cannula 3 06/14/22 15:40 06/14/22 15:30 06/14/22 15:30 06/14/22 15:25 06/14/22 15:25 06/14/22 15:20 06/14/22 15:10 06/14/22 15:01 06/14/22 15:00 06/14/22 14:58 06/14/22 14:50 06/14/22 14:40 06/14/22 14:31 06/14/22 14:31 06/14/22 14:30 06/14/22 14:20 06/14/22 14:10 06/14/22 14:00 06/14/22 14:00 06/14/22 13:50 Nasal Cannula 2 06/14/22 13:40 Room Air 06/14/22 13:31 Room Air 06/14/22 13:30 06/14/22 13:29 Room Air 06/14/22 13:20 Nasal Cannula 1 06/14/22 13:10 06/14/22 13:10 Room Air 06/14/22 13:15 Nasal Cannula 1 06/14/22 12:50 Room Air 06/14/22 11:35 Room Air Code Status & VTE Plan VTE Prophylaxis Plan VTE Prophylaxis will be ordered: Yes PG Care Time/CCT Total # of Minutes Spent Total Time Spent with Patient: Total time spent is greater than 50% in coordination of care (as documented) at patient's floor/unit and/or counseling patient: Coding Level of Care Code 57163 INT INP/OBS CARE 375MIN Diagnoses Pleural effusion J90 Chronic diastolic (congestive) heart failure I50.32 Constipation K59.00 Atrial fibrillation I48.91 DVT prophylaxis Z29.9 Discharge planning issues Z02.9
[2022-06-14] MEDS: FLUTICASONE PROPIONATE NA SPR 16 GM BTL NAE SCH (20:35)
[2022-06-15 04:45] LABS: Albumin Globulin Ratio 1.1 (0.9-2); Albumin Level 3.4 gm/dl (3.4-5.0); BUN Creatinine Ratio 23.6 (10-20); Basophils # (auto) 0.01 K/uL (0-0.2); Basophils % (auto) 0.3 %; Bilirubin,Total 0.7 mg/dl (0.2-1.0); Eosinophils # (auto) 0.04 K/uL (0-0.50); Eosinophils % (auto) 1.4 %; Est GFR (African American) 29.8 ml/min; Est GFR (Non-African American) 25.7 ml/min; Hematocrit (blood only) 37.6 % (37.0-47.0); Hemoglobin 12.1 g/dl (12.0-16.0); Immature Granulocytes # (auto) 0.01 K/uL (0.01-0.20); Immature Granulocytes % (auto) 0.3 %; Lymphocytes # (auto) 0.36 K/uL (1.2-3.4); Lymphocytes % (auto) 12.2 %; Magnesium 2.1 mg/dl (1.7-2.4); Mean Corpuscular Hemoglobin 33.9 pg (25.0-34.0); Mean Corpuscular Hgb Conc 32.2 g/dL (32.0-36.0); Mean Corpuscular Volume 105.3 fL (80.0-100.0); Mean Platelet Volume 11.4 fL (9.4-12.4); Monocytes # (auto) 0.47 K/uL (0.11-0.59); Monocytes % (auto) 15.9 %; Neutrophils # (auto) 2.06 K/uL (1.40-6.50); Neutrophils % (auto) 69.9 %; Platelet Count 129 K/uL (130-400); Potassium 4.5 mmol/L (3.5-5.1); RDW Coefficient of Variation 14.4 % (11.5-14.5); Red Blood Count 3.57 M/uL (4.20-5.40); Total Protein 6.4 gm/dl (6.0-8.3); White Blood Count 2.95 K/ul (4.8-10.8)
[2022-06-15] MEDS: LEVOTHYROXINE SODIUM 75 MCG TABLET PO SCH (05:53)
[2022-06-15] MEDS: ESCITALOPRAM OXALATE 10 MG TAB PO SCH (08:03)
[2022-06-15] MEDS: FAMOTIDINE 20 MG TAB PO SCH (08:03)
[2022-06-15] MEDS: FLUTICASONE PROPIONATE NA SPR 16 GM BTL NAE SCH ×2 (08:04→20:33)
--- NOTE | 2022-06-15 08:32 | Electrocardiogram Report ---
Test Reason : Blood Pressure : / mmHG Vent. Rate : 060 BPM Atrial Rate : 340 BPM P-R Int : 000 ms QRS Dur : 082 ms QT Int : 388 ms P-R-T Axes : 000 -87 058 degrees QTc Int : 388 ms Poor data quality, interpretation may be adversely affected Atrial fibrillation Left axis deviation Abnormal ECG When compared with ECG of 27-SEP-2020 06:02, HR has decreased y 20 bpm Otherwise no significant change Confirmed by Momo Balderas ([id number]) on 06/15/2022 8:32:37 AM Referred By: REFERRED SELF Confirmed By:Momo Balderas
--- NOTE | 2022-06-15 08:50 | Hospitalist Progress Note ---
Date of Service June 15, 2022 Assessment & Plan (1) Pleural effusion: Plan: Seems most fitting that her worsening fatigue and worsening dyspnea/hypoxia on exertion probably related to the worsening right pleural effusion, which is in turn likely related to her chronic diastolic CHF and sodium intake. Given that she is having dyspnea on exertion and having an oxygen requirement, reasonable to consider thoracentesisask pulmonary to see her in this regard. Eliquis on hold for now. -Awaiting pleural tap by IV radiology on 06/16/2022. (2) Chronic diastolic (congestive) heart failure: Plan: I suspect her hypotension relates to her Entresto, and/or escalated diuresis for this. Currently she appears euvolemic to slightly dry other than her right pleural effusion. Given that her blood pressure is somewhat low, holding her Bumex and Entresto for now. -Consider stopping Entresto altogether and discharging home on ARB only. (3) Constipation: Plan: Nausea and vomiting likely related to this. She has had a bowel movement. Regular diet. Follow. (4) Atrial fibrillation: Plan: Rate controlled, chronically anticoagulated on Eliquisthis is on hold for now for the potential of thoracentesis. Diltiazem also on hold given that her blood pressures are fairly lowbut right now rates are good, can treat as needed if needed, otherwise anticipate resuming home meds as her blood pressure allows (5) DVT prophylaxis: Plan: Chronically on Eliquisresume after thoracentesis (or after pulmonary evaluation if no thoracentesis to be done). Asymmetry in her lower extremity edema appears to be chronic per her history, she does not have calf tenderness, and given that she is chronically anticoagulatedall are reasons to have a very low suspicion for VTE. (6) Discharge planning issues: Plan: Admit to telemetry given her hypotension, anticipate being able to return home once all of the above issues are remedied. Admission and Anticipated Discharge Date Admission Date: June 14, 2022 Supervising Physician Co-Signing Physician Notes I personally examined the patient and verified all sinclair points of history and exam, discussed case, and agree with decision making with Dr Ponce feeling OK. for thoracentesis tomorrow vitals noted nad heent nc at mmm breathing unlabored on NC O2 no accessory muscles or conversational dyspnea good effort hypoxia/effusion due to chronic dCHF (HFPEF) - for thoracentesis tomorrow. chronic dCHF (HFPEF) - with hypotension - may not be able to tolerate entresto. holding meds for now - reinstitute as needed/as possible. at the same time, if able to find easier ways to stay low sodium in diet, might be able to be maintained on less overall meds, especially if BP won't tolerate higher dosing. otherwise as above Subjective Patient eating breakfast on arrival this morning. She feels better and would like to go home. She has not had a bowel movement but has been ambulating to and from the restroom to urinate without difficulty. Review of Systems Review of Systems: All systems reviewed & are unremarkable except as noted in HPI & below Physical Exam Physical Exam: General: No acute distress HEENT: PERRLA. Normal conjunctiva, anicteric sclera. Oropharynx normal. Respiratory: Normal respiratory effort, bibasilar crackles heard in auscultation. Cardiovascular: RRR without murmurs, gallops, or rubs. No edema. GI: Soft abdomen with normal bowel sounds heard on auscultation. Nontender x4 quadrants Neuro: Alert and oriented x3. Results & Data Results & Data Vital Signs (Past 12 Hours) Vital Signs Temp Pulse Pulse Resp BP BP Pulse Ox 06/15/22 08:05 06/15/22 07:56 36.3 C L 66 16 94/58 L 98 06/15/22 07:00 72 06/15/22 04:37 64 91/50 L 87/52 L 06/15/22 03:16 59 L 91/46 L 06/15/22 02:15 60 94/53 L 06/15/22 04:00 70 20 92/45 L 92/46 L 92 06/15/22 03:35 36.7 C 61 20 89/48 L 83/51 L 93 06/15/22 00:25 70 92/46 L 06/15/22 00:27 62 92/45 L 06/14/22 23:37 36.6 C 72 18 94/52 L 91 O2 Del Method O2 Flow Rate 06/15/22 08:05 Nasal Cannula 06/15/22 07:56 Nasal Cannula 4 06/15/22 07:00 06/15/22 04:37 06/15/22 03:16 06/15/22 02:15 06/15/22 04:00 Nasal Cannula 4 06/15/22 03:35 Nasal Cannula 4 06/15/22 00:25 06/15/22 00:27 06/14/22 23:37 Nasal Cannula 2 Resident Activity Tracking Resident Involvement: Resident Care Provided Care Provided: Adult Hospital Medicine
--- NOTE | 2022-06-15 09:03 | Pulmonary Consultation ---
Date of Consultation June 15, 2022 Assessment & Plan (1) Pleural effusion due to CHF (congestive heart failure): She has worsening ILIANA and hypotension and is not tolerating diuresis. She does have mild hypoxemia and is requiring supplemental oxygen. She has bilateral effusions, right greater than left. We will consult radiology for thoracentesis to be done Thursday which will be a 48-hour timeframe since her last dose of Eliquis. Recommend palliative care consultation given cardiomyopathy, advanced age and chronic dyspnea symptoms. Thank you for the consult. We will continue to follow with you. History of Present Illness Reason for Consultation: Pleural effusion Attending Physician: Brian Alonzo DO History of Present Illness 86-year-old female well-known to the pulmonary clinic due to a history of cardiomyopathy and recurrent pleural effusions. Her last thoracentesis was July 2021 which revealed a transudate on the right side. She presents with nausea and vomiting that started Thursday night and spontaneously resolved. She has been hypotensive overnight. She is requiring nasal cannula to maintain saturations i n the 90s. She endorses mild dyspnea with exertion and occasionally some orthopnea. She is chronically anticoagulated with Eliquis which is on hold at this present time. She is afebrile. She did take a dose of Eliquis yesterday morning. We will allow 48 hours for the Eliquis to washout prior to thoracentesis. She notes that she is feeling fine at present and denies any shortness of breath with oxygen. Allergies Allergy/AdvReac Type Severity Reaction Status Date / Time No Known Drug Allergies Allergy Unknown Verified 06/14/22 15:42 Home Medications Medication Instructions Recorded Confirmed Type apixaban 2.5 mg tablet 2.5 mg PO BID 10/18/18 06/14/22 History digoxin 125 mcg (0.125 mg) tablet 125 mcg PO 3XWK 10/18/18 06/14/22 History levothyroxine 75 mcg tablet 75 mcg PO QAM 10/18/18 06/14/22 History cyanocobalamin (vitamin B-12) 1,000 mcg PO QDL 09/26/20 06/14/22 History 1,000 mcg tablet (Vitamin B-12) bumetanide 0.5 mg tablet 1 mg PO Q OTHER DAY 06/14/22 06/14/22 History diltiazem HCl 360 mg 1 mg PO DAILY 06/14/22 06/14/22 History capsule,extended release 24 hr famotidine 20 mg tablet 20 mg PO QAM 06/14/22 06/14/22 History hydrocortisone 2.5 % topical cream 1 applic [place] UD 06/14/22 06/14/22 History with perineal applicator nystatin 100,000 unit/gram topical 1 applic topical UD 06/14/22 06/14/22 History ointment sacubitril 24 mg-valsartan 26 mg 1 tab PO BID 06/14/22 06/14/22 History tablet (Entresto) Patient History Medical History (Updated 06/15/22 @ 09:00 by Elton Harris MD) Atrial fibrillation A FEW YEARS AGO , CARDIOVERSION UNSUCCESSFUL. FOLLOW WITH DR POZO TAKES DIG AND DILTIAZEM AND ELIQUIS Atrial fibrillation Chronic anticoagulation (~03/05/21) Chronic diastolic (congestive) heart failure Chronic kidney disease, stage 3 CARPENTER (dyspnea on exertion) Extremity edema TAKES LASIX NEEDED Abhinav's thyroiditis Pleural effusion Pleural effusion due to CHF (congestive heart failure) Recurrent right pleural effusion Severe mitral valve stenosis Shortness of breath Surgical History History of laparotomy SMALL BOWEL OBSTRUCTION DUE TO ADHESION 2018 Hx of colonoscopy Hx of inguinal hernia surgery (04/21/19) Right Open Inguinal Hernia with Mesh Dr. Kumar 04/21/19 Family History Sister Hearing loss Heart disease Brother Hearing loss Heart disease Other No family history of adverse response to anesthesia No family history of bleeding disorder Denies family history of Kidney disease Social History Smoking Status: Never smoker Second Hand Exposure: No; Hx Alcohol Use: No Hx Substance Use: No Preferred Language: Citizen Of [place] Communication Ability: Effective Visual Impairment: No Limitations Home Appliance Installer Required: No Beliefs That Will Affect Care: None marital status: / Current Living Situation: Alone Current Living Situation Comment: apartment current occupational status: retired Feels Safe at Home: Yes Assistive Devices: Denture - Upper, Denture - Lower, Glasses and Hearing Aid - Right Review of Systems Review of Systems: All systems reviewed & are unremarkable except as noted in HPI & below Physical Exam Constitutional: WD/WN, vitals as above + thin Respiratory: Normal effort. Diminished lung sounds at the right base. Cardiovascular: RRR, no murmur, no edema Skin: no rashes, warm and dry Neurologic: PERRL, EOMI, accommodation nl, no face palsy, no dysarthria Psychiatric: A+Ox3, euthymic affect Results & Data Results & Data Vital Signs (Past 12 Hours) Vital Signs Temp Pulse Pulse Resp BP BP Pulse Ox 06/15/22 08:05 06/15/22 07:56 36.3 C L 66 16 94/58 L 98 06/15/22 07:00 72 06/15/22 04:37 64 91/50 L 87/52 L 06/15/22 03:16 59 L 91/46 L 06/15/22 02:15 60 94/53 L 06/15/22 04:00 70 20 92/45 L 92/46 L 92 06/15/22 03:35 36.7 C 61 20 89/48 L 83/51 L 93 06/15/22 00:25 70 92/46 L 06/15/22 00:27 62 92/45 L 06/14/22 23:37 36.6 C 72 18 94/52 L 91 O2 Del Method O2 Flow Rate 06/15/22 08:05 Nasal Cannula 06/15/22 07:56 Nasal Cannula 4 06/15/22 07:00 06/15/22 04:37 06/15/22 03:16 06/15/22 02:15 06/15/22 04:00 Nasal Cannula 4 06/15/22 03:35 Nasal Cannula 4 06/15/22 00:25 06/15/22 00:27 06/14/22 23:37 Nasal Cannula 2 PG Care Time/CCT Total # of Minutes Spent Total Time Spent with Patient: Total time spent is greater than 50% in coordination of care (as documented) at patient's floor/unit and/or counseling patient: Coding Level of Care Code 94816 INT INP/OBS CARE 2/55MIN Diagnoses Pleural effusion due to CHF (congestive heart failure) I50.9
[2022-06-15 11:38] LABS: Ferritin 128.9 ng/ml (8-388)
[2022-06-15 11:46] LABS: Vitamin B12 448 pg/ml (180-914)
[2022-06-15] MEDS: CYANOCOBALAMIN (B-12) 500 MCG TABLET PO SCH (12:36)
--- NOTE | 2022-06-15 14:53 | Billing Data ---
Date of Service June 15, 2022 Coding Level of Care Code 25549 SUB INP/OBS CARE
--- NOTE | 2022-06-16 05:55 | Hospitalist Progress Note ---
Date of Service June 16, 2022 Assessment & Plan (1) Pleural effusion: (2) Chronic diastolic (congestive) heart failure: (3) Constipation: (4) DVT prophylaxis: (5) Atrial fibrillation: (6) Discharge planning issues: (7) CKD (chronic kidney disease) stage 3, GFR 30-59 ml/min: Plan Acute hypoxic resp failure: - sec to pleural effusion - continue NC O2 to keep SaO2 above 90% Pleural effusion: X-ray on 06/14 showed moderate right pleural effusion with possible trace left effusion. Currently requiring 4 L nasal cannula. Does not currently use oxygen at home. Pulmonary consulted and patient will have thoracentesis on 06/16/2022. Pleural effusion most likely related to chronic diastolic CHF and sodium intake. Eliquis on hold. Chronic diastolic (congestive) heart failure Last echo done on 11/2020 which showed a EF of 60%. Follows with Dr. Sanchez as an outpatient. Discussed with Dr. Luke on 06/16/2022 - recommends to marriage counselor on Salt restriction. Increase Entresto 24-26 mg to middle dose while decreasing diltiazem 360mg to 240 mg. Entresto and Bumex currently on hold due to hypotensive episodes during admission. Will reevaluate after thoracentesis. Constipation (Resolved) Nausea and vomiting prior to admission was most likely related to this. She has had a bowel movement. Regular diet. Follow. CKD stage 3 -Baseline creatine 1.3-1.7. Creatinine of 1.6 on 06/16. -avoid nephrotoxin agents. Atrial fibrillation Currently rate controlled with with diltiazem and chronically anticoagulated with Eliquis. Diltiazem on hold due to hypotension. Holding Eliquis due to thoracentesis. Can restart after completion of thoracentesis. DVT prophylaxis Chronically on Eliquisresume after thoracentesis. Asymmetry in her lower extremity edema appears to be chronic per her history, she does not have calf tenderness, and given that she is chronically anticoagulatedall are reasons to have a very low suspicion for VTE. Discharge planning issues Admit to telemetry given her hypotension, anticipate being able to return home once all of the above issues are remedied. Admission and Anticipated Discharge Date Admission Date: June 14, 2022 Supervising Physician Co-Signing Physician Notes Resident Physician Supervision Note: I independently interviewed and examined the patient and verified the sinclair history and physical, reviewed labs and image studies and agree with resident findings and care plan. Subjective Patient was seen bedside this morning. She states that she still feels fatigue and is having shortness of breath her shortness of breath has improved. She does state that it is worse when she lays down. She is currently waiting to have a thoracentesis today. Review of Systems Review of Systems: All systems reviewed & are unremarkable except as noted in Subjective Physical Exam Constitutional: WD/WN, vitals as above Eyes: PERRL, conjunctivae normal, anicteric sclerae ENMT: external ear and nose normal, oropharynx normal Respiratory: normal respiratory effort Auscultation: + diminished lung sounds (RLL ) and + crackles (RLL> LLL) Cardiovascular: Rate/Rhythm: + irregularly irregular Extremities: + edema (LE) Gastrointestinal (Abdomen): normal bowel sounds, soft, nontender, no hepatosplenomegaly Psychiatric: A+Ox3, euthymic affect Results & Data Results & Data Vital Signs (Past 12 Hours) Vital Signs Temp Pulse Pulse Resp BP BP Pulse Ox 06/16/22 02:53 36.7 C 76 18 100/58 L 90 06/15/22 23:57 36.7 C 75 18 99/59 L 98 06/15/22 22:06 66 06/15/22 20:00 06/15/22 20:03 36.6 C 77 18 95/58 L O2 Del Method O2 Flow Rate 06/16/22 02:53 Nasal Cannula 4 06/15/22 23:57 Nasal Cannula 4 06/15/22 22:06 06/15/22 20:00 Nasal Cannula 4 06/15/22 20:03 Nasal Cannula 4 Resident Activity Tracking Resident Involvement: Resident Care Provided Care Provided: Adult Hospital Medicine
[2022-06-16] MEDS: LEVOTHYROXINE SODIUM 75 MCG TABLET PO SCH (06:14)
[2022-06-16 07:57] LABS: Basophils # (auto) 0.01 K/uL (0-0.2); Basophils % (auto) 0.2 %; Eosinophils # (auto) 0.06 K/uL (0-0.50); Eosinophils % (auto) 1.4 %; Hematocrit (blood only) 36.6 % (37.0-47.0); Hemoglobin 11.7 g/dl (12.0-16.0); Immature Granulocytes # (auto) 0.01 K/uL (0.01-0.20); Immature Granulocytes % (auto) 0.2 %; Lymphocytes # (auto) 0.39 K/uL (1.2-3.4); Mean Corpuscular Hemoglobin 33.6 pg (25.0-34.0); Mean Corpuscular Volume 105.2 fL (80.0-100.0); Mean Platelet Volume 11.6 fL (9.4-12.4); Monocytes # (auto) 0.63 K/uL (0.11-0.59); Monocytes % (auto) 14.5 %; Neutrophils # (auto) 3.24 K/uL (1.40-6.50); Neutrophils % (auto) 74.7 %; Platelet Count 126 K/uL (130-400); RDW Coefficient of Variation 13.8 % (11.5-14.5); RDW Standard Deviation 53.5 fL (36.4-46.3); Red Blood Count 3.48 M/uL (4.20-5.40); White Blood Count 4.34 K/ul (4.8-10.8)
[2022-06-16] MEDS: FAMOTIDINE 20 MG TAB PO SCH (07:59)
[2022-06-16] MEDS: ESCITALOPRAM OXALATE 10 MG TAB PO SCH (07:59)
[2022-06-16] MEDS: FLUTICASONE PROPIONATE NA SPR 16 GM BTL NAE SCH ×2 (08:00→19:54)
[2022-06-16] MEDS ORDERED: DIGOXIN 0.125 MG TAB PO SCH (09:00)
[2022-06-16 09:44] LABS: Albumin Level 3.3 gm/dl (3.4-5.0); Bilirubin,Total 0.6 mg/dl (0.2-1.0); Calcium 8.2 mg/dl (8.6-10.3); Potassium 4.6 mmol/L (3.5-5.1)
[2022-06-16 09:51] LABS: Albumin Globulin Ratio 1.1 (0.9-2); BUN Creatinine Ratio 27.5 (10-20); Creatinine Clr Calc Pharmacy 20.4 ml/min; Est GFR (Non-African American) 28.5 ml/min; Total Protein 6.3 gm/dl (6.0-8.3)
[2022-06-16] MEDS: CYANOCOBALAMIN (B-12) 500 MCG TABLET PO SCH (10:50)
--- NOTE | 2022-06-16 15:18 | Pulmonology Progress Note ---
Date of Service June 16, 2022 Assessment & Plan (1) Pleural effusion due to CHF (congestive heart failure): (2) Chronic diastolic (congestive) heart failure: (3) Hypoxia: Plan Impression: 86-year-old female with history of diastolic heart failure and transudative effusion admitted with increasing right-sided effusion and shortness of breath. Recommendations: 1. Pleural effusion: Transudative previously. Patient desires symptomatic relief. Discussed risk and benefits of repeating thoracentesis at this time. She is agreeable to proceed. Her anticoagulation has been held greater than 24 hours. We will pursue therapeutic thoracentesis. I would not recommend indwelling pleural catheter for benign etiologies. Optimal management with respect to her heart failure including blood pressure control, and diuresis as well as adherence to salt restricted diet Pulmonary will sign off at this point time. If the patient should have reaccumulation of the pleural fluid, we will be happy to see her back in the pulmonary clinic. Admission and Anticipated Discharge Date Admission Date: June 14, 2022 Subjective Patient seen and examined. EMR reviewed. The patient is sitting up. She is on oxygen was unclear why. She reports she only has some shortness of breath at night occasionally. She states she did have relief from thoracentesis performed previously. She denies fevers chills night sweats or other constitutional symptoms. Review of Systems Review of Systems: All systems reviewed & are unremarkable except as noted in Subjective Physical Exam Constitutional: WD/WN, vitals as above Eyes: PERRL, conjunctivae normal, anicteric sclerae ENMT: external ear and nose normal, oropharynx normal Respiratory: normal respiratory effort Auscultation: + diminished lung sounds (RLL ) and + crackles (RLL> LLL) Cardiovascular: Rate/Rhythm: + irregularly irregular Extremities: + edema (LE) Gastrointestinal (Abdomen): normal bowel sounds, soft, nontender, no hepato splenomegaly Psychiatric: A+Ox3, euthymic affect Results & Data Results & Data Vital Signs (Past 12 Hours) Vital Signs Temp Pulse Pulse Resp BP Pulse Ox O2 Del Method 06/16/22 15:09 77 06/16/22 11:09 36.4 C L 66 16 89/55 L 100 Nasal Cannula 06/16/22 08:29 Nasal Cannula 06/16/22 08:19 69 06/16/22 08:00 80 06/16/22 07:10 36.4 C L 79 18 92/52 L 98 Nasal Cannula O2 Flow Rate 06/16/22 15:09 06/16/22 11:09 4 06/16/22 08:29 2 06/16/22 08:19 06/16/22 08:00 06/16/22 07:10 4 Laboratory Results 06/16/22 07:25 06/16/22 07:25 Diagnostic Findings No new imaging PG Care Time/CCT Total # of Minutes Spent Total Time Spent with Patient: Total time spent is greater than 50% in coordination of care (as documented) at patient's floor/unit and/or counseling patient: Coding Level of Care Code 94260 SUB INP/OBS CARE 2/35MIN Diagnoses Pleural effusion due to CHF (congestive heart failure) I50.9 Chronic diastolic (congestive) heart failure I50.32 Hypoxia R09.02
--- NOTE | 2022-06-16 15:19 | Procedure Note ---
Procedure Note Date of Service June 16, 2022 Note Procedure: Diagnostic therapeutic ultrasound-guided catheter thoracentesis, right Keno Writer/Runner: Dr. Duy Tan Indication: Pleural effusion Consent: Signed by patient and verified with timeout prior to procedure Anesthesia: 6 mL's 1% lidocaine without epinephrine local. Procedure: Consent was verified and timeout performed. Appropriate imaging studies were reviewed prior to the procedure. Patient was placed in a seated position and limited thoracic ultrasound was performed of the right chest. A moderate to large right-sided effusion was noted with compressive atelectasis. Site appropriate for thoracentesis was selected. The skin was prepped and draped in normal sterile fashion. Lidocaine was used for local analgesia. Fluid was aspirated via the finder needle. A small skin renée was made with the scalpel and the catheter over the needle apparatus was advanced over the rib into the pleural space. Using the syringe one-way valve system, a total of 1500 mL's of clear yellow fluid was removed. Procedure was terminated due to patient coughing and experiencing some chest pain. The catheter was removed and observed to be intact. A sterile dressing was applied. Post procedure chest x- ray was ordered. Fluid was not sent as previous studies demonstrated a transudative etiology. The patient tolerated the procedure well without obvious complication Coding CPT Codes Pulmonary/Thoracic - Pulmonary and Thoracic: 64968 Thoracentesis w imaging ([id number]) [facility] [place] Procedure Codes (Charges) Pulmonary/Thoracic Procedure 1: Pulmonary and Thoracic: 73691 Thoracentesis w imaging
--- NOTE | 2022-06-16 15:40 | XRay Report ---
XR chest 1V portable HISTORY: 86 years-old Female S/P Thoracentesis STUDY in a patient with pleural effusions COMPARISON: 06/14/2022 TECHNIQUE: AP view of the chest FINDINGS: Cardiac silhouette is enlarged. Pulmonary vascular congestion. Small to moderate layering pleural eff usions with bibasilar consolidation. The left pleural effusion has increased in size in the right ple ural effusion has decreased. There is no pneumothorax identified. Degenerative changes of the shoulde rs and spine. IMPRESSION: 1. No postprocedural pneumothorax. 2. Pleural effusions with bibasilar consolidation. 3. Cardiomegaly with pulmonary vascular congestion ACT 112: Negative or not required by law. The above report was generated using voice recognition software. It may contain grammatical, syntax o r spelling errors. Electronically signed by: Devyn Padilla M.D. 06/16/2022 3:39 PM
[2022-06-17] MEDS: LEVOTHYROXINE SODIUM 75 MCG TABLET PO SCH (06:08)
--- NOTE | 2022-06-17 06:39 | Hospitalist Progress Note ---
Date of Service June 17, 2022 Assessment & Plan (1) Pleural effusion: (2) Chronic diastolic (congestive) heart failure: (3) Constipation: (4) DVT prophylaxis: (5) Atrial fibrillation: (6) Discharge planning issues: (7) CKD (chronic kidney disease) stage 3, GFR 30-59 ml/min: Plan Acute hypoxic resp failure: - sec to pleural effusion - continue NC O2 to keep SaO2 above 90% Pleural effusion: X-ray on 06/14 showed moderate right pleural effusion with possible trace left effusion. Currently requiring 4 L nasal cannula. Does not currently use oxygen at home. Pulmonary consulted and patient will have thoracentesis on 06/16/2022. Pleural effusion most likely related to chronic diastolic CHF and sodium intake. Eliquis on hold. Chronic diastolic (congestive) heart failure Last echo done on 11/2020 which showed a EF of 60%. Follows with Dr. Sanchez as an outpatient. Discussed with Dr. Luke on 06/16/2022 - recommends to certified personal finance counselor on Salt restriction. Increase Entresto 24-26 mg to middle dose while decreasing diltiazem 360mg to 240 mg. Entresto and Bumex currently on hold due to hypotensive episodes during admission. Will reevaluate after thoracentesis. Constipation (Resolved) Nausea and vomiting prior to admission was most likely related to this. She has had a bowel movement. Regular diet. Follow. CKD stage 3 -Baseline creatine 1.3-1.7. Creatinine of 1.6 on 06/16. -avoid nephrotoxin agents. Atrial fibrillation Currently rate controlled with with diltiazem and chronically anticoagulated with Eliquis. Diltiazem on hold due to hypotension. Holding Eliquis due to thoracentesis. Can restart after completion of thoracentesis. DVT prophylaxis Chronically on Eliquisresume after thoracentesis. Asymmetry in her lower extremity edema appears to be chronic per her history, she does not have calf tenderness, and given that she is chronically anticoagulatedall are reasons to have a very low suspicion for VTE. Discharge planning issues Admit to telemetry given her hypotension, anticipate being able to return home once all of the above issues are remedied. Admission and Anticipated Discharge Date Admission Date: June 14, 2022 Results & Data Results & Data Vital Signs (Past 12 Hours) Vital Signs Temp Pulse Pulse Resp BP BP Pulse Ox 06/17/22 03:43 36.4 C L 64 18 95/57 L 98 06/16/22 21:59 74 06/16/22 23:20 36.6 C 71 20 98/59 L 98 06/16/22 20:00 06/16/22 20:00 36.8 C 78 20 127/76 97 O2 Del Method O2 Flow Rate 06/17/22 03:43 Nasal Cannula 4 06/16/22 21:59 06/16/22 23:20 Nasal Cannula 4 06/16/22 20:00 Nasal Cannula 4 06/16/22 20:00 Nasal Cannula 4
[2022-06-17 07:21] LABS: Basophils # (auto) 0.01 K/uL (0-0.2); Basophils % (auto) 0.3 %; Eosinophils # (auto) 0.11 K/uL (0-0.50); Eosinophils % (auto) 2.8 %; Hematocrit (blood only) 36.1 % (37.0-47.0); Hemoglobin 11.6 g/dl (12.0-16.0); Lymphocytes # (auto) 0.34 K/uL (1.2-3.4); Lymphocytes % (auto) 8.6 %; Mean Corpuscular Hemoglobin 33.6 pg (25.0-34.0); Mean Corpuscular Hgb Conc 32.1 g/dL (32.0-36.0); Mean Corpuscular Volume 104.6 fL (80.0-100.0); Mean Platelet Volume 11.4 fL (9.4-12.4); Monocytes # (auto) 0.49 K/uL (0.11-0.59); Monocytes % (auto) 12.4 %; Neutrophils # (auto) 3.01 K/uL (1.40-6.50); Neutrophils % (auto) 75.9 %; Platelet Count 123 K/uL (130-400); RDW Coefficient of Variation 13.4 % (11.5-14.5); RDW Standard Deviation 51.9 fL (36.4-46.3); Red Blood Count 3.45 M/uL (4.20-5.40); White Blood Count 3.96 K/ul (4.8-10.8)
[2022-06-17 07:49] LABS: Albumin Globulin Ratio 1.1 (0.9-2); Albumin Level 3.2 gm/dl (3.4-5.0); BUN Creatinine Ratio 28.8 (10-20); Bilirubin,Total 0.5 mg/dl (0.2-1.0); Calcium 7.9 mg/dl (8.6-10.3); Creatinine Clr Calc Pharmacy 23.9 ml/min; Est GFR (African American) 41.6 ml/min; Est GFR (Non-African American) 35.9 ml/min; Globulin 2.9 gm/dl (2.5-4.0); Potassium 4.6 mmol/L (3.5-5.1); Total Protein 6.1 gm/dl (6.0-8.3)
[2022-06-17] MEDS: ESCITALOPRAM OXALATE 10 MG TAB PO SCH (08:37)
[2022-06-17] MEDS: FAMOTIDINE 20 MG TAB PO SCH (08:38)
[2022-06-17] MEDS: FLUTICASONE PROPIONATE NA SPR 16 GM BTL NAE SCH (08:38)
[2022-06-17 11:20] VITALS: TEMP 98.2
[2022-06-17] MEDS: CYANOCOBALAMIN (B-12) 500 MCG TABLET PO SCH (12:28)
[2022-06-17] MEDS ORDERED: APIXABAN 2.5 MG TAB PO ONE (13:23)
--- NOTE | 2022-06-17 14:54 | Discharge Summary ---
Date of Service June 17, 2022 Admission HPI Per Admitting Provider Patient is a very pleasant 86-year-old femaleshe actually came to the ER at the urging of her children. Is a little bit hard to tell if they urged her to come because of nausea and vomiting (which has since resolved), fatigue (which has been going on for several months but seems to be worsening), low blood pressure (but I am not sure that she was aware of that prior to coming to the ER), or dyspnea on exertion (which seems to be her most pressing acute problem but also 1 that she only vaguely admits to symptoms of over the last few weeks at home. Nausea and vomiting: She was feeling okay yesterday, and then had a few episodes of vomiting through the night and early in the morning. She had not had a bowel movement in a few daysnotes she has chronic constipation, had taken MiraLAX, had a fairly sizable bowel movement today and no longer feels nauseated. Fatigue: On direct questioning she admits to rather significant fatigue, seems to be somewhat oppressive, notes that she does not really have the ability to do what she normally likes to do, it might be worse over the last few weeks but that might be this examiner's interpretation of unspoken communication, and at the same time its been going on for quite a whileprobably at least a few months. Dyspnea on exertion: This seems to be worse, and the ER physician noted that she desaturates to the mid 80s even going to and from the bathroom. The patient herself is "pleasantly evasive" on directed questioning in this regard, but does note that probably over the last few weeks she has had a harder time doing what she normally likes to do, and whenever she exerts more (such as running the sweeper) she notices feeling more short of breath than usual. This is in the context of a known right pleural effusion, escalated diuresis and escalated En tresto, and admittedly fairly poor adherence to a low-sodium diet. Notes worsening bilateral lower extremity edemaleft worse than right, no painnotes that her left always swells more than the right when she has swelling. Low blood pressureher pressures have been noted to be somewhat on the low sideshe does not discuss about this at home, but does note that she was just started on Entresto by her wholesale manager about 2 weeks ago, and the dose escalated last week. Admission Exam Per Admitting Provider In general she is awake and alert pleasant no distress. HEENT normocephalic atraumatic mucous membranes moist. Cardio is regular no rubs murmurs or gallops. Lungs show diminished air entry base right to about the mid right lung field, otherwise fairly clear without rales rhonchi or wheezes good effort. Abdomen is soft nondistended nontender no masses organomegaly. Extremities without cyanosis or clubbing, she does have left greater than right lower extremity edema, no calf tenderness. Neuro shows cranial nerves II through XII to be grossly intact gross motor and sensory are intact. Skin shows a little bit of venous stasis changes bilateral lower extremities, otherwise no rashes pallor or icterus. Principal Diagnosis Acute hypoxic respiratory failure due to pleural effusion secondary to chronic diastolic heart failure Discharge Exam Constitutional WD/WN, vitals as above no acute distress Respiratory normal respiratory effort, lungs clear to auscultation Cardiovascular RRR, no murmur, no edema Gastrointestinal (Abdomen) normal bowel sounds, soft, nontender, no hepatosplenomegaly Musculoskeletal no cyanosis or clubbing, extremities motor strength 5/5 Skin no rashes, warm and dry Psychiatric A+Ox3, euthymic affect Discharge Data Allergies Allergy/AdvReac Type Severity Reaction Status Date / Time No Known Drug Allergies Allergy Unknown Verified 06/14/22 15:42 Consultations 06/14/22 14:47 ED Decision to Admit Stat 06/14/22 16:22 Consult Pulmonology Routine Procedures Performed Chest X-Ray 06/14/22 11:43 XR chest 1V portable CLINICAL HISTORY: weakness TECHNIQUE: Single frontal radiograph of the chest was obtained. Comparison: Comparison is made to chest radiograph 06/12/2022 FINDINGS: No lines and tubes are seen. Cardiomegaly is noted. Moderate right pleural effusion is seen, increased from prior. There is underlying atelectasis. Possible trace left pleural effusion. IMPRESSION: Moderate right pleural effusion, increased from prior exam, with possible trace left effusion. Stable cardiomegaly. ACT 112: Negative or not required by law. Electronically signed by: Ryan Burk M.D. 06/14/2022 12:09 PM Chest X-Ray 06/16/22 15:17 XR chest 1V portable HISTORY: 86 years-old Female S/P Thoracentesis STUDY in a patient with pleural effusions COMPARISON: 06/14/2022 TECHNIQUE: AP view of the chest FINDINGS: Cardiac silhouette is enlarged. Pulmonary vascular congestion. Small to moderate layering pleural effusions with bibasilar consolidation. The left pleural effusion has increased in size in the right pleural effusion has decreased. There is no pneumothorax identified. Degenerative changes of the shoulders and spine. IMPRESSION: 1. No postprocedural pneumothorax. 2. Pleural effusions with bibasilar consolidation. 3. Cardiomegaly with pulmonary vascular congestion ACT 112: Negative or not required by law. The above report was generated using voice recognition software. It may contain grammatical, syntax or spelling errors. Electronically signed by: Devyn Padilla M.D. 06/16/2022 3:39 PM Ordered Studies Abnormal lab results 06/17/22 06/17/22 Range/Units 06:56 06:56 WBC 3.96 L (4.8-10.8) K/ul RBC 3.45 L (4.20-5.40) M/uL Hgb 11.6 L (12.0-16.0) g/dl Hct 36.1 L (37.0-47.0) % MCV 104.6 H (80.0-100.0) fL RDW Std Deviation 51.9 H (36.4-46.3) fL Plt Count 123 L (130-400) K/uL Lymph # (Auto) 0.34 L (1.2-3.4) K/uL Immature Gran # (Auto) 0.00 L (0.01-0.20) K/uL Anion Gap 2 L (3-11) BUN 38 H (6-23) mg/dl Creatinine 1.32 H (0.6-1.2) mg/dl BUN/Creatinine Ratio 28.8 H (10-20) Calcium 7.9 L (8.6-10.3) mg/dl AST 41 H (13-39) U/L Albumin 3.2 L (3.4-5.0) gm/dl Hospital Course (1) Pleural effusion: (2) Chronic diastolic (congestive) heart failure: (3) Constipation: (4) DVT prophylaxis: (5) Atrial fibrillation: (6) Discharge planning issues: (7) CKD (chronic kidney disease) stage 3, GFR 30-59 ml/min: Plan Acute hypoxic resp failure - Secondary to pleural effusion - Required nasal cannula O2 during admission. Was able to wean off to room air at time of discharge. 2 stepdown before discharge showed no need for at home oxygen at this time. Pleural effusion: X-ray on 06/14 showed moderate right pleural effusion with possible trace left effusion. Pulmonary consulted and patient had thoracentesis on 06/16/2022. Had a total of 1500 mL of clear yellow fluid removed. Fluid was not sent due to previous studies demonstrating a transudative etiology. Pleural effusion most likely related to excessive salt intake in setting of chronic diastolic CHF. Chronic diastolic (congestive) heart failure Last echo done on 11/2020 which showed a EF of 60%. Entresto and Bumex were on hold during admission due to episodes of hypotension. Discussed with Dr. Luke on 06/16/2022 - recommends to genetic counselor on Salt restriction. Increase Entresto 24-26 mg to middle dose while decreasing diltiazem 360mg to 240 mg. She will follow-up as an outpatient with cardiology regarding changes to these medications. Longstanding persistent Atrial fibrillation Currently rate controlled with with diltiazem and chronically anticoagulated with Eliquis. Diltiazem was on hold and restarted at time of discharge Held Eliquis due to thoracentesis, which was restarted on 06/17. Constipation (Resolved) Nausea and vomiting prior to admission was most likely related to this. She has had a bowel movement. CKD stage 3 -Baseline creatine 1.3-1.7. Creatinine of 1.6 on 06/16. -Avoided nephrotoxic agents during admission. Total Time Total Time Spent Total Time Spent (In Minutes): 20 Discharge Plan Discharge Items Patient Disposition: Home - Self-Care Reason For Visit: weakness, worsening effusion Discharge Diagnosis: Acute hypoxic respiratory failure due to pleural effusion secondary to chronic diastolic heart failure Condition on Discharge: Fair Activity: Resume your previous activity Non-emergency contact: Primary Care Provider Call non-emergency contact if: your pain is worsening, your pain is unusual for you and your temperature is above 101.5 Follow-up/Referrals: Vaibhav Luke, [Physician] - (Hospitalized for acute hypoxic respiratory failure due to pleural effusion secondary to chronic diastolic heart failure.) Geri Salgado, [Primary Care Provider] - 06/25/22 2:25 pm (THIS APPOINTMENT WILL BE WITH DR DENIS) Diet: Regular and Low Sodium (2gm) Addtl Attending Provider Instructions: You were admitted to the hospital for acute hypoxic respiratory failure due to pleural effusion. You were treated with a thoracentesis and oxygen. A discharge summary will be sent to your primary care physician to ensure continuity of care. Please bring this discharge summary with you to your next office appointment so that your provider can review it at that time. Follow-up appointments: * You have appointment with your PCP Dr. Salgado on 06/25/2022 at 2:25 pm. * We requested to have you follow-up with your wholesale manager Dr. Luke. If you do not hear from his office please reach out to schedule an appointment. * Keep all your follow-up appointments as already scheduled. If you cannot make an appointment, notify your provider. Medications: Your medication list has been reviewed and reconciled upon discharge to ensure accuracy and continuity of care. An updated list of all your medications is included with your hospital discharge paperwork. Please review this list closely, and make note of any changes. * We increased your dose of Entresto to 49/51 mg. Take Entresto twice a day. * We decreased your diltiazem to 240 mg. Please take diltiazem once daily. * If you have any issues filling these prescriptions, please call [phone] and ask to leave a message for Dr. Corbett. * Take your medications as instructed; do not skip a dose of your medicines. Make sure all of your doctors know every medicine you are taking (including [id number] medicines, vitamins, and supplements). Call your primary care provider before taking any new medicines (including over- the-counter medicines, vitamins, and supplements), because some of these may interact with your current medications, or may make your symptoms worse. Tell your primary care provider if you cannot afford your medications. CONTACT YOUR PRIMARY CARE PROVIDER if you experience any of the following: * Worsening of symptoms * Fever, chills, or fatigue * Difficulty following your treatment plan, or difficulty taking medications CALL 911 OR GO TO THE EMERGENCY DEPARTMENT if you experience any of the following: * Sudden, severe abdominal pain or nausea/vomiting * Severe chest pain, or chest pain that radiates (moves) to your jaw or arm * Sudden, severe shortness of breath or difficulty breathing Thank you for allowing us to participate in your care. Pending Studies at Discharge: No Stand-Alone Forms: [facility], Smoking Cessation Medications and DC Order Prescriptions: New Entresto 49-51 mg tablet 1 tab PO BID 28 Days Qty: 56 0RF diltiazem HCl 240 mg capsule,extended release 24hr 240 mg PO DAILY Qty: 30 0RF Continued digoxin 125 mcg tablet 125 mcg PO [id number] Rx Instructions: Thursday, Thursday, Thursday apixaban 2.5 mg tablet 2.5 mg PO BID levothyroxine 75 mcg tablet 75 mcg PO QAM cyanocobalamin (vitamin B-12) [Vitamin B-12] 1,000 mcg Tablet 1,000 mcg PO QDL famotidine 20 mg tablet 20 mg PO QAM bumetanide 0.5 mg tablet 1 mg PO Q OTHER DAY Rx Instructions: pt states just starting to take it this way nystatin 100,000 unit/gram ointment 1 applic TOPICAL UD hydrocortisone 2.5 % cream with perineal applicator 1 applic MN UD Discontinued Entresto 24-26 mg tablet 1 tab PO BID diltiazem HCl 360 mg capsule,extended release 24hr 1 mg PO DAILY Discharge Orders: Discharge Order (Routine); Ordered 06/17/22 Ordered By: Delvis Corbett Admission Data Admit Date/Time: 06/14/22 15:21 Attending Provider: Abby Lind Admit Provider: Brian Alonzo Primary Care Provider: Geri Salgado Other Providers: Elton Harris ; Brian Alonzo Other Interventions: Discharge Summary Assessment (RN) Last Done: 06/17/22 16:04 Supervising Physician Co-Signing Physician Notes Resident Physician Supervision Note: I independently interviewed and examined the patient and verified the sinclair history and physical, reviewed labs and image studies and agree with resident findings and care plan.
[2022-06-17 16:09] VITALS: BP 95/57; PULSE 71; O2SAT 99
[2022-06-17] MEDS ORDERED: APIXABAN 2.5 MG TAB PO SCH (21:00)
== END 2022-06-17 17:10 | disposition home or self-care (01) | DRG 291 ==
LOC: ED 11:30 → 2N 15:21 → SUATTDRO 15:21 → 2N 16:16

== ENCOUNTER 2022-06-17 23:00 | Observation (INO) ==
[2022-06-18 00:24] LABS: Albumin Globulin Ratio 1.1 (0.9-2); Albumin Level 3.5 gm/dl (3.4-5.0); BUN Creatinine Ratio 24.1 (10-20); Bilirubin,Total 0.5 mg/dl (0.2-1.0); Calcium 8.4 mg/dl (8.6-10.3); Creatinine Clr Calc Pharmacy 23.1 ml/min; Est GFR (African American) 38.5 ml/min; Est GFR (Non-African American) 33.2 ml/min; Globulin 3.1 gm/dl (2.5-4.0); Potassium 4.3 mmol/L (3.5-5.1); Total Protein 6.6 gm/dl (6.0-8.3)
[2022-06-18 00:28] LABS: Eosinophils # (auto) 0.01 K/uL (0-0.50); Eosinophils % (auto) 0.2 %; Hematocrit (blood only) 35.5 % (37.0-47.0); Hemoglobin 11.5 g/dl (12.0-16.0); Immature Granulocytes # (auto) 0.01 K/uL (0.01-0.20); Immature Granulocytes % (auto) 0.2 %; Lymphocytes # (auto) 0.33 K/uL (1.2-3.4); Lymphocytes % (auto) 6.6 %; Mean Corpuscular Hemoglobin 33.8 pg (25.0-34.0); Mean Corpuscular Hgb Conc 32.4 g/dL (32.0-36.0); Mean Corpuscular Volume 104.4 fL (80.0-100.0); Mean Platelet Volume 11.2 fL (9.4-12.4); Monocytes # (auto) 0.45 K/uL (0.11-0.59); Monocytes % (auto) 9.1 %; Neutrophils # (auto) 4.17 K/uL (1.40-6.50); Neutrophils % (auto) 83.9 %; Platelet Count 120 K/uL (130-400); RDW Coefficient of Variation 13.4 % (11.5-14.5); RDW Standard Deviation 51.6 fL (36.4-46.3); White Blood Count 4.97 K/ul (4.8-10.8)
[2022-06-18 00:30] LABS: Troponin I High Sensitivity 28.7 pg/ml (0-14)
[2022-06-18 00:59] LABS: Appearance Urine Clear (Clear); Bacteria Urine Automated Negative (Negative); Bilirubin Urine Negative (Negative); Blood Urine Negative (Negative); Color Urine Dark Yellow; Epithelial Cell Urine Auto >30 /lpf (0-5); Glucose Urine UA Negative (Negative); Ketones Urine Negative (Negative); Leukocyte Esterase Urine Negative (Negative); Nitrite Urine Negative (Negative); Protein Urine 1+ (Negative); RBC Urine Automated 0-4 /hpf (0-4); Specific Gravity Urine 1.024 (1.000-1.030); Urobilinogen Urine Negative (Negative); pH Urine 5.5 (4.5-7.5)
[2022-06-18] MEDS ORDERED: ONDANSETRON INJ 2 MG/ML 2 ML VIAL IV PRN (02:18)
[2022-06-18] MEDS ORDERED: DOCUSATE SODIUM 100 MG CAP PO PRN (02:18)
[2022-06-18] MEDS ORDERED: ACETAMINOPHEN 325 MG TAB PO PRN (02:18)
--- NOTE | 2022-06-18 03:38 | History & Physical Report ---
Date of Service June 18, 2022 Assessment & Plan (1) Pleural effusion due to CHF (congestive heart failure): Plan: 86-year-old female with history of atrial fibrillation, CHF, CKD and hypothyroidism - recent hospitalization for acute hypoxic respiratory failure secondary to pleural effusion from CHF status post thoracentesis with removal of 1500 mL transudative fluid returning to the ER after syncopal event. Mildly hypoxic in the ER with saturation of 90% on room air requiring placement of supplemental oxygen 2 L. Chest x-ray with some reaccumulation of pleural fluid right more than left. Patient is in no respiratory distress Hypotensive in the ER. We will not administer IV diuretic at this time until blood pressure improves Admit to medical with telemetry Continue supplemental oxygen as needed Repeat chest x-ray in the morning Pulmonary consultation regarding possible repeat thoracentesis (2) Hypotension: Plan: Patient with low blood pressures in the ER. Likely medication induced. Hold diltiazem for now Hold Entresto Hold Bumex Continue to monitor blood pressure (3) Chronic diastolic (congestive) heart failure: Plan: Bilateral pleural effusions most likely secondary to acute on chronic diastolic heart failure. Patient with low blood pressure in the ER. No IV diuresis at this time We will hold Entresto for now given low blood pressures We will hold Bumex for now given low blood pressures (4) Atrial fibrillation: Plan: Rate controlled. Anticoagulated on apixaban 2.5 mg p.o. twice daily. Hold diltiazem for now given low blood pressures Hold apixaban now for possible thoracentesis Continue digoxin 0.25 mg p.o. q. Thursday Telemetry monitoring (5) GERD (gastroesophageal reflux disease): Plan: Chronic. Stable. Continue famotidine (6) Hypothyroid: Plan: Chronic. Stable. Continue Synthroid F/E/N -Hep-Lock, monitor electrolytes, regular diet as tolerated ProphylaxisSCDs CodeDNR/DNI per discussion with patient Dispositionadmit to medical telemetry Admission and Anticipated Discharge Date Admission Date: June 18, 2022 History of Present Illness Chief Complaint: syncope, shortness of breath Primary Care Provider: Geri Salgado DO Lisa Pettit is an 86yo female with history AF, CHF and CKD presenting with SOB, syncope. Patient was recently admitted to [facility] from 06/14/22 - 06/17/22 after presenting with acute hypoxic respiratory secondary to pleural effusion from chronic diastolic heart failure. She had a thoracentesis on 06/16/22 with 1500mL transudative fluid removed. Patient had low blood pressures during her stay. Her Entresto, Bumex and Diltiazem were held temporarily. On discharge, her Diltiazem was decreased from 360mg to 240mg and her Entresto was increased to 24-26mg tablet. Patient was discharged home on 06/17/22. As she was walking into her home she had a syncopal event and collapsed onto the sidewalk. She denies head trauma or pain. Her neighbors assisted her and her son came and brought her back to the ER. At this time she is complaining only of shortness of breath. She denies chest pain, abdominal pain, nausea, vomiting, diarrhea or constipation. Denies fever/chills. In the ER she is mildly hypoxic at 90% on room air. She was placed on 2L NC with improvement in saturation - now 93%. Blood pressure has been borderline low - 86/51 on arrival, now 98/49. CXR suggestive of some reaccumulation of right pleural effusion. Allergies Allergy/AdvReac Type Severity Reaction Status Date / Time No Known Allergies Allergy Verified 06/18/22 01:01 Home Medications Medication Instructions Recorded Confirmed Type apixaban 2.5 mg tablet 2.5 mg PO BID 10/18/18 06/18/22 History digoxin 125 mcg (0.125 mg) tablet 125 mcg PO 3XWK 10/18/18 06/18/22 History levothyroxine 75 mcg tablet 75 mcg PO QAM 10/18/18 06/18/22 History cyanocobalamin (vitamin B-12) 1,000 mcg PO QDL 09/26/20 06/18/22 History 1,000 mcg tablet (Vitamin B-12) bumetanide 0.5 mg tablet 1 mg PO Q OTHER DAY 06/14/22 06/18/22 History famotidine 20 mg tablet 20 mg PO QAM 06/14/22 06/18/22 History hydrocortisone 2.5 % topical cream 1 applic NV UD 06/14/22 06/18/22 History with perineal applicator nystatin 100,000 unit/gram topical 1 applic topical UD 06/14/22 06/18/22 History ointment diltiazem HCl 240 mg 240 mg PO DAILY #30 caps 06/17/22 06/18/22 Rx capsule,extended release 24 hr sacubitril 49 mg-valsartan 51 mg 1 tab PO BID 4 weeks #56 tabs 06/17/22 06/18/22 Rx tablet (Entresto) Past Med/Surg History Medical History Atrial fibrillation A FEW YEARS AGO , CARDIOVERSION UNSUCCESSFUL. FOLLOW WITH DR POZO TAKES DIG AND DILTIAZEM AND ELIQUIS Atrial fibrillation Chronic anticoagulation (~03/05/21) Chronic diastolic (congestive) heart failure Chronic kidney disease, stage 3 CARPENTER (dyspnea on exertion) Extremity edema TAKES LASIX NEEDED Abhinav's thyroiditis Pleural effusion Pleural effusion due to CHF (congestive heart failure) Recurrent right pleural effusion Severe mitral valve stenosis Shortness of breath Surgical History History of laparotomy SMALL BOWEL OBSTRUCTION DUE TO ADHESION 2018 Hx of colonoscopy Hx of inguinal hernia surgery (04/21/19) Right Open Inguinal Hernia with Mesh Dr. Kumar 04/21/19 Family History Sister Hearing loss Heart disease Brother Hearing loss Heart disease Other No family history of adverse response to anesthesia No family history of bleeding disorder Denies family history of Kidney disease Social History Smoking Status: Never smoker Second Hand Exposure: No; Hx Alcohol Use: No Hx Substance Use: No Preferred Language: Kazakh Communication Ability: Effective Visual Impairment: No Limitations Chemists Required: No Beliefs That Will Affect Care: None marital status: / Current Living Situation: Alone Current Living Situation Comment: apartment current occupational status: retired Other Information That Helps Us Care for You: No Feels Safe at Home: Yes Safety Concerns: Feels Safe At This Time Assistive Devices: Hearing Aid - Right Review of Systems Review of Systems: All systems reviewed & are unremarkable except as noted in HPI & below Physical Exam Physical Exam: General: Frail, elderly female patient resting comfortably, NAD, non-toxic in appearance, AA&O x 4, nasal cannula in place at 2 L Skin: warm, dry, intact, no rashes or lesions HEENT: NC/AT, PERRL, EOMI, anicteric sclera, conjunctiva without injection, external ear normal to inspection and nontender, nares patent, moist mucus membranes, dentition intact, no oropharyngeal lesions, neck supple, trachea midline, no LAD, no thyromegaly, no JVD Heart: +S1/S2, irregularly irregular, systolic ejection murmur across precordium, no rub/gallop Lungs: Diminished breath sounds at bilateral bases right greater than left, no wheeze or rhonchi. No respiratory distress. Abd: +BS, soft, NT/ND, no masses/organomegaly/ascites Ext: warm, 2+ pulses in UE/LE bilaterally, no clubbing/cyanosis, 1+ pitting edema left ankle (patient reports is chronic and unchanged) Neuro: nonfocal, patient AA&O x 4, speech intact, no facial droop, moving all extremities on command with equal strength 5/5 Results & Data Results & Data Vital Signs (Past 12 Hours) Vital Signs Temp Pulse Pulse Resp BP Pulse Ox O2 Del Method 06/18/22 03:09 Nasal Cannula 06/18/22 03:09 36.5 C 81 19 93 Nasal Cannula 06/18/22 02:00 75 18 98/49 L 95 Nasal Cannula 06/18/22 01:30 76 18 93/54 L 95 Nasal Cannula 06/18/22 00:30 79 21 93/57 L 97 Nasal Cannula 06/17/22 23:44 84 20 89/57 L 98 Nasal Cannula 06/17/22 23:38 89 20 98/48 L 97 Nasal Cannula 06/17/22 23:10 90 Room Air 06/17/22 23:14 85 06/17/22 23:14 87 99 Nasal Cannula 06/17/22 23:06 36.7 C 80 18 86/51 L 90 Room Air O2 Flow Rate 06/18/22 03:09 2 06/18/22 03:09 2 06/18/22 02:00 1 06/18/22 01:30 1 06/18/22 00:30 2 06/17/22 23:44 2 06/17/22 23:38 2 06/17/22 23:10 06/17/22 23:14 06/17/22 23:14 2 06/17/22 23:06 Laboratory Results Laboratory Results WBC 4.97 K/ul (4.8-10.8) 06/17/22 23:14 RBC 3.40 M/uL (4.20-5.40) L 06/17/22 23:14 Hgb 11.5 g/dl (12.0-16.0) L 06/17/22 23:14 Hct 35.5 % (37.0-47.0) L 06/17/22 23:14 MCV 104.4 fL (80.0-100.0) H 06/17/22 23:14 MCH 33.8 pg (25.0-34.0) 06/17/22 23:14 MCHC 32.4 g/dL (32.0-36.0) 06/17/22 23:14 RDW Std Deviation 51.6 fL (36.4-46.3) H 06/17/22 23:14 RDW Coeff of Job 13.4 % (11.5-14.5) 06/17/22 23:14 Plt Count 120 K/uL (130-400) L 06/17/22 23:14 MPV 11.2 fL (9.4-12.4) 06/17/22 23:14 Immature Gran % (Auto) 0.2 % 06/17/22 23:14 Neut % (Auto) 83.9 % 06/17/22 23:14 Lymph % (Auto) 6.6 % 06/17/22 23:14 [place] % (Auto) 9.1 % 06/17/22 23:14 Eos % (Auto) 0.2 % 06/17/22 23:14 Baso % (Auto) 0.0 % 06/17/22 23:14 Neut # (Auto) 4.17 K/uL (1.40-6.50) 06/17/22 23:14 Lymph # (Auto) 0.33 K/uL (1.2-3.4) L 06/17/22 23:14 [place] # (Auto) 0.45 K/uL (0.11-0.59) 06/17/22 23:14 Eos # (Auto) 0.01 K/uL (0-0.50) 06/17/22 23:14 Baso # (Auto) 0.00 K/uL (0-0.2) 06/17/22 23:14 Immature Gran # (Auto) 0.01 K/uL (0.01-0.20) 06/17/22 23:14 Sodium 136 mmol/L (136-145) 06/17/22 23:14 Potassium 4.3 mmol/L (3.5-5.1) 06/17/22 23:14 Chloride 102 mmol/L (98-107) 06/17/22 23:14 Carbon Dioxide 30 mmol/L (21-32) 06/17/22 23:14 Anion Gap 4 (3-11) 06/17/22 23:14 BUN 34 mg/dl (6-23) H 06/17/22 23:14 Creatinine 1.41 mg/dl (0.6-1.2) H 06/17/22 23:14 Est Cr Clr Drug Dosing 23.1 ml/min 06/17/22 23:14 Est GFR ( Amer) 38.5 ml/min 06/17/22 23:14 Est GFR (Non-Af Amer) 33.2 ml/min 06/17/22 23:14 BUN/Creatinine Ratio 24.1 (10-20) H 06/17/22 23:14 Glucose 129 mg/dl (70-99(Fasting)) H 06/17/22 23:14 Calcium 8.4 mg/dl (8.6-10.3) L 06/17/22 23:14 Total Bilirubin 0.5 mg/dl (0.2-1.0) 06/17/22 23:14 AST 37 U/L (13-39) 06/17/22 23:14 ALT 28 U/L (7-52) 06/17/22 23:14 Alkaline Phosphatase 62 U/L (34-104) 06/17/22 23:14 Troponin I High Sens 28.7 pg/ml (0-14) H 06/17/22 23:14 Total Protein 6.6 gm/dl (6.0-8.3) 06/17/22 23:14 Albumin 3.5 gm/dl (3.4-5.0) 06/17/22 23:14 Globulin 3.1 gm/dl (2.5-4.0) 06/17/22 23:14 Albumin/Globulin Ratio 1.1 (0.9-2) 06/17/22 23:14 Urine Color Dark Yellow 06/18/22 00:41 Urine Appearance Clear (Clear) 06/18/22 00:41 Urine pH 5.5 (4.5-7.5) 06/18/22 00:41 Ur Specific [place] 1.024 (1.000-1.030) 06/18/22 00:41 Urine Protein 1+ (Negative) H 06/18/22 00:41 Urine Glucose (UA) Negative (Negative) 06/18/22 00:41 Urine Ketones Negative (Negative) 06/18/22 00:41 Urine Blood Negative (Negative) 06/18/22 00:41 Urine Nitrite Negative (Negative) 06/18/22 00:41 Urine Bilirubin Negative (Negative) 06/18/22 00:41 Urine Urobilinogen Negative (Negative) 06/18/22 00:41 Ur Leukocyte Esterase Negative (Negative) 06/18/22 00:41 Urine WBC (Auto) 1-5 /hpf (0-5) 06/18/22 00:41 Urine RBC (Auto) 0-4 /hpf (0-4) 06/18/22 00:41 U Hyaline Cast (Auto) 10-30 /lpf (0-5) H 06/18/22 00:41 U Epithel Cells (Auto) >30 /lpf (0-5) H 06/18/22 00:41 Urine Bacteria (Auto) Negative (Negative) 06/18/22 00:41 Diagnostic Findings Chest x-rayby my interpretationstudy reveals blunting of bilateral costophrenic angles right more than left concerning for reaccumulation of pleural effusion PG Care Time/CCT Total # of Minutes Spent Total Time Spent with Patient: Total time spent is greater than 50% in coordination of care (as documented) at patient's floor/unit and/or counseling patient: Coding Level of Care Code 97384 INT INP/OBS CARE 3/75MIN Diagnoses Pleural effusion due to CHF (congestive heart failure) I50.9 Hypotension I95.9 Hypotension type: unspecified hypotension type Chronic diastolic (congestive) heart failure I50.32 Atrial fibrillation I48.91 GERD (gastroesophageal reflux disease) K21.9 Hypothyroid E03.9 (2) Hypotension Hypotension type: unspecified hypotension type Qualified Code(s): I95.9 - Hypotension, unspecified
--- NOTE | 2022-06-18 06:07 | Emergency Department Note ---
Impression & Plan Acute dyspnea, Pleural effusion, Syncope Admit to the [facility] Hospitalist ED Provider Note NAME: ZAFAR LOBO AGE: 86 SEX: F ARRIVES VIA: Ambulance INFORMANT: Patient and her son ED PROVIDER(S): Katya Perez DO CHIEF COMPLAINT: Shortness of breath PLAN: Disposition: Admit to the [facility] Condition: Fair MEDICAL DECISION MAKING: This is an 86-year-old female patient with history of congestive heart failure and pleural effusion who was just discharged from the hospital earlier this evening. Upon arrival home from the hospital, she had a syncopal event in front of her house. Since that time, the patient has had increasing shortness of breath, generalized weakness and near syncope. EMS was called and she was transported back to the hospital. The patient was noted to be significantly hypotensive and short of breath. On chest x-ray, there is evidence of reaccumulation of the right-sided pleural effusion. Patient has a history of A- fib and had been taken off of her Eliquis. She had not yet restarted it. However, the patient was discharged home on Entresto. the patient remains mildly hypotensive with blood pressures in the 80s and 90s systolically. Reviewing her admission weekend she had blood pressures in the 90s and 100s. Triage Nursing notes reviewed and agree with them. Additional history obtained from the patient's son is at the bedside External records were reviewed including the recent admission note from this hospitalization Vital Signs: reviewed and unremarkable Differential diagnosis: Reaccumulation of pleural effusion; congestive heart failure; hypoxia; dehydration; cardiac ischemia; cardiac dysrhythmia Diagnostics interpreted by me: ECG: A-fib at a rate of [address] segment elevation or signs of ischemia. There is no ectopy. Cardiac Monitoring: A-fib at a rate of 72 Laboratory studies: See below Imaging studies: As per my independent interpretation Portable chest x-ray: Right-sided pleural effusion with evidence of congestive heart failure HPI: 86/F arrives for evaluation of shortness of breath and syncope. Patient had been admitted to the hospital over the weekend for thoracentesis for right- sided pleural effusion. She was discharged from the hospital earlier this evening after that admission. When she arrived home, while entering her home, she had a syncopal event. Neighbors helped her up into the house. Since that time, she had increasing shortness of breath, weakness and additional events of near syncope. EMS was called and she was transported here. PAST MEDICAL HISTORY:See Below PAST SURGICAL HISTORY:See Below FAMILY HISTORY:See Below SOCIAL HISTORY:See Below HOME MEDICATIONS:See list ALLERGIES:None VITALS:See Below PHYSICAL EXAMINATION: HEENT: Head - normocephalic and atraumatic Pupils are equal, round, and reactive to light. Extraocular eye muscles are intact, and sclera are anicteric. Nose - moist nasal mucosa without discharge. Mouth - moist buccal mucosa. Oropharynx is nonerythematous and there is no tonsillar exudate or edema noted. Neck: Supple; no cervical lymphadenopathy or JVD appreciated. Heart: Irregularly irregular rhythm there is a normal S1 and S2 with no murmurs, clicks, or gallops appreciated. Lungs: Absent breath sounds at the right lung base with rales throughout the lungs. Abdomen: Soft, completely nontender, nondistended, with good bowel sounds. There are no palpable pulsatile masses or hepatosplenomegaly. There is no guarding, rigidity, or rebound noted. Extremities: No evidence of cyanosis, clubbing, or edema. There are easily palpable peripheral pulses. Skin: Pale, warm and dry with good turgor and no rashes. ED COURSE: Times/Reassessments: 2335: Patient was evaluated in room B10. A complete history and physical was performed. A twelve-lead EKG was obtained. An order was placed for continuous cardiac monitoring. The patient was in atrial fibrillation at a rate of 72. Laboratory studies were drawn as above. External records were reviewed including the most recent hospitalization for thoracentesis. I discussed the case with case management as well as with the [facility] Hospitalist and they will evaluate for further management. Katya Perez DO Past Med/Surg History Medical History Atrial fibrillation A FEW YEARS AGO , CARDIOVERSION UNSUCCESSFUL. FOLLOW WITH DR POZO TAKES DIG AND DILTIAZEM AND ELIQUIS Atrial fibrillation Chronic anticoagulation (~03/05/21) Chronic diastolic (congestive) heart failure Chronic kidney disease, stage 3 CARPENTER (dyspnea on exertion) Extremity edema TAKES LASIX NEEDED Abhinav's thyroiditis Pleural effusion Pleural effusion due to CHF (congestive heart failure) Recurrent right pleural effusion Severe mitral valve stenosis Shortness of breath Surgical History History of laparotomy SMALL BOWEL OBSTRUCTION DUE TO ADHESION 2018 Hx of colonoscopy Hx of inguinal hernia surgery (04/21/19) Right Open Inguinal Hernia with Mesh Dr. Kumar 04/21/19 Family History Sister Hearing loss Heart disease Brother Hearing loss Heart disease Other No family history of adverse response to anesthesia No family history of bleeding disorder Denies family history of Kidney disease Social History Smoking Status: Never smoker Second Hand Exposure: No; Hx Alcohol Use: No Hx Substance Use: No Preferred Language: Northern Irish Communication Ability: Effective Visual Impairment: No Limitations Manager Completions Required: No Beliefs That Will Affect Care: Holiness marital status: / Current Living Situation: Alone Current Living Situation Comment: apartment current occupational status: retired Feels Safe at Home: Yes Assistive Devices: None Allergies Allergies Allergy/AdvReac Type Severity Reaction Status Date / Time No Known Allergies Allergy Verified 06/18/22 01:01 Home Meds Home Medications Medication Instructions Recorded Confirmed apixaban 2.5 mg tablet 2.5 mg PO BID 10/18/18 06/18/22 digoxin 125 mcg (0.125 mg) tablet 125 mcg PO 3XWK 10/18/18 06/18/22 levothyroxine 75 mcg tablet 75 mcg PO QAM 10/18/18 06/18/22 cyanocobalamin (vitamin B-12) 1,000 mcg PO QDL 09/26/20 06/18/22 1,000 mcg tablet (Vitamin B-12) bumetanide 0.5 mg tablet 1 mg PO Q OTHER DAY 06/14/22 06/18/22 famotidine 20 mg tablet 20 mg PO QAM 06/14/22 06/18/22 hydrocortisone 2.5 % topical cream 1 applic MO UD 06/14/22 06/18/22 with perineal applicator nystatin 100,000 unit/gram topical 1 applic topical UD 06/14/22 06/18/22 ointment Previous Rx's Medication Instructions Recorded diltiazem HCl 240 mg 240 mg PO DAILY #30 caps 06/17/22 capsule,extended release 24 hr sacubitril 49 mg-valsartan 51 mg 1 tab PO BID 4 weeks #56 tabs 06/17/22 tablet (Entresto) Results & Data (ED) Vital Signs Vital Signs - 24 hr 06/17/22 23:06 06/17/22 23:14 06/17/22 23:14 Temperature 36.7 C Temperature Source Oral Pulse Rate 80 85 Pulse Rate [Apical] 87 Pulse Rate from SpO2 Sensor Respiratory Rate 18 Blood Pressure 86/51 L Blood Pressure Mean 62 Pulse Oximetry 90 99 Oxygen Delivery Method Room Air Nasal Cannula Oxygen Flow Rate 2 Sepsis Recent Fever Within 48 Hours No Sepsis New/Unexplained Change in Mental Status No Sepsis Action Taken by Nursing No Action Required Fraction of Inspired Oxygen - Titration Pulse Oximetry Post Tiitration 06/17/22 23:10 06/17/22 23:38 06/17/22 23:44 Temperature Temperature Source Pulse Rate 89 84 Pulse Rate [Apical] Pulse Rate from SpO2 Sensor 90 Respiratory Rate 20 20 Blood Pressure 98/48 L 89/57 L Blood Pressure Mean 64 67 Pulse Oximetry 90 97 98 Oxygen Delivery Method Room Air Nasal Cannula Nasal Cannula Oxygen Flow Rate 2 2 Sepsis Recent Fever Within 48 Hours Sepsis New/Unexplained Change in Mental Status Sepsis Action Taken by Nursing Fraction of Inspired Oxygen - Titration 2 Pulse Oximetry Post Tiitration 99 06/18/22 00:30 06/18/22 01:30 Temperature Temperature Source Pulse Rate 79 76 Pulse Rate [Apical] Pulse Rate from SpO2 Sensor 76 77 Respiratory Rate 21 18 Blood Pressure 93/57 L 93/54 L Blood Pressure Mean 69 67 Pulse Oximetry 97 95 Oxygen Delivery Method Nasal Cannula Nasal Cannula Oxygen Flow Rate 2 1 Sepsis Recent Fever Within 48 Hours Sepsis New/Unexplained Change in Mental Status Sepsis Action Taken by Nursing Fraction of Inspired Oxygen - Titration Pulse Oximetry Post Tiitration Laboratory Data 06/17/22 23:14 06/17/22 23:14 Lab Results 06/17/22 06/17/22 06/18/22 Range/Units 23:14 23:14 00:41 WBC 4.97 (4.8-10.8) K/ul RBC 3.40 L (4.20-5.40) M/uL Hgb 11.5 L (12.0-16.0) g/dl Hct 35.5 L (37.0-47.0) % MCV 104.4 H (80.0-100.0) fL MCH 33.8 (25.0-34.0) pg MCHC 32.4 (32.0-36.0) g/dL RDW Std Deviation 51.6 H (36.4-46.3) fL RDW Coeff of Job 13.4 (11.5-14.5) % Plt Count 120 L (130-400) K/uL MPV 11.2 (9.4-12.4) fL Immature Gran % (Auto) 0.2 % Neut % (Auto) 83.9 % Lymph % (Auto) 6.6 % [place] % (Auto) 9.1 % Eos % (Auto) 0.2 % Baso % (Auto) 0.0 % Neut # (Auto) 4.17 (1.40-6.50) K/uL Lymph # (Auto) 0.33 L (1.2-3.4) K/uL [place] # (Auto) 0.45 (0.11-0.59) K/uL Eos # (Auto) 0.01 (0-0.50) K/uL Baso # (Auto) 0.00 (0-0.2) K/uL Immature Gran # (Auto) 0.01 (0.01-0.20) K/uL Sodium 136 (136-145) mmol/L Potassium 4.3 (3.5-5.1) mmol/L Chloride 102 (98-107) mmol/L Carbon Dioxide 30 (21-32) mmol/L Anion Gap 4 (3-11) BUN 34 H (6-23) mg/dl Creatinine 1.41 H (0.6-1.2) mg/dl Est Cr Clr Drug Dosing 23.1 ml/min Est GFR ( Amer) 38.5 ml/min Est GFR (Non-Af Amer) 33.2 ml/min BUN/Creatinine Ratio 24.1 H (10-20) Glucose 129 H (70-99(Fasting)) mg/dl Calcium 8.4 L (8.6-10.3) mg/dl Total Bilirubin 0.5 (0.2-1.0) mg/dl AST 37 (13-39) U/L ALT 28 (7-52) U/L Alkaline Phosphatase 62 (34-104) U/L Troponin I High Sens 28.7 H (0-14) pg/ml Total Protein 6.6 (6.0-8.3) gm/dl Albumin 3.5 (3.4-5.0) gm/dl Globulin 3.1 (2.5-4.0) gm/dl Albumin/Globulin Ratio 1.1 (0.9-2) Urine Color Dark Yellow Urine Appearance Clear (Clear) Urine pH 5.5 (4.5-7.5) Ur Specific [place] 1.024 (1.000-1.030) Urine Protein 1+ H (Negative) Urine Glucose (UA) Negative (Negative) Urine Ketones Negative (Negative) Urine Blood Negative (Negative) Urine Nitrite Negative (Negative) Urine Bilirubin Negative (Negative) Urine Urobilinogen Negative (Negative) Ur Leukocyte Esterase Negative (Negative) Urine WBC (Auto) 1-5 (0-5) /hpf Urine RBC (Auto) 0-4 (0-4) /hpf U Hyaline Cast (Auto) 10-30 H (0-5) /lpf U Epithel Cells (Auto) >30 H (0-5) /lpf Urine Bacteria (Auto) Negative (Negative) Administered Medications Acetaminophen (Acetaminophen 325 Mg Tab) 650 mg PO Q4H PRN PRN Reason: pain/fever Stop: 07/18/22 02:17 Last Admin: 06/18/22 21:55 Dose: 650 mg Documented By: ANIRUDH Digoxin (Digoxin 0.125 Mg Tab) 0.125 mg PO MoWeFr [facility] Stop: 07/18/22 15:59 Last Admin: 06/18/22 17:54 Dose: 0.125 mg Documented By: KAMRYN Famotidine (Famotidine 20 Mg Tab) [facility] Stop: 07/18/22 08:59 Last Admin: 06/19/22 07:45 Dose: 20 mg Documented By: AML Co-signed By: ROBSON Admin: 06/18/22 09:01 Dose: 20 mg Documented By: JOSE G Levothyroxine Sodium (Levothyroxine Sodium 75 Mcg Tablet) 75 mcg PO DAILYBB [facility] Stop: 07/18/22 06:29 Last Admin: 06/19/22 05:47 Dose: 75 mcg Documented By: Admin: 06/18/22 06:41 Dose: 75 mcg Documented By: ELIZABETH Discharge Plan Visit Data Chief Complaint: Shortness of Breath/Dyspnea ED Provider: Katya Perez Discharge Problem: Acute dyspnea, Pleural effusion, Syncope Patient Disposition: Admitted As Inpatient Discharge Instructions Interventions: ED Discharge Assessment Last Done: 06/18/22 02:18
[2022-06-18] MEDS: LEVOTHYROXINE SODIUM 75 MCG TABLET PO SCH (06:41)
--- NOTE | 2022-06-18 06:44 | Hospitalist Progress Note ---
Date of Service June 18, 2022 Assessment & Plan (1) Pleural effusion due to CHF (congestive heart failure): (2) Hypotension: (3) Chronic diastolic (congestive) heart failure: (4) Atrial fibrillation: (5) GERD (gastroesophageal reflux disease): (6) Hypothyroid: Plan 86-year-old female with history of atrial fibrillation, CHF, CKD and hypothyroidism - recent hospitalization for acute hypoxic respiratory failure secondary to pleural effusion from CHF status post thoracentesis with removal of 1500 mL transudative fluid returning to the ER after syncopal event. Acute respiratory failure - Sec to severe PulHTN with Pleural effusion and severe valvular heart ds. Patient was mildly hypoxic in the ED saturating in the 90%, currently on 2 L nasal cannula. Pleural effusion due to CHF (congestive heart failure) Patient was hypotensive in the ED, so no IV diuretics were given at that time. Continue supplemental oxygen as needed Chest x-ray showed unchanged pulmonary edema, pleural effusion R>L with bibasilar consolidation. Pulmonary consultation and the defers thoracocentesis at this time due to no significant clinical benefit. Recommend to continue diuresis. Syncope Hypotension Severe Pul HTN and severe Mitral stenosis Patient with low blood pressures in the ER. Likely medication induced. Hold diltiazem for now Hold Entresto Hold Bumex Severe Pul HtN with Mitral stenosis likely contributing. - will consult cardio. To consider discussion of goals of care. Chronic diastolic (congestive) heart failure Bilateral pleural effusions most likely secondary to acute on chronic diastolic heart failure. Patient with low blood pressure in the ER. No IV diuresis at this time We will hold Entresto for now given low blood pressures We will hold Bumex for now given low blood pressures Ordered TTE. Last echo done in 11/2020 showed an EF of 60%. Atrial fibrillation Rate controlled. Anticoagulated on apixaban 2.5 mg p.o. twice daily. Hold diltiazem for now given low blood pressures Hold apixaban now for possible thoracentesis Continue digoxin 0.25 mg p.o. q. Thursday Telemetry monitoring GERD (gastroesophageal reflux disease) Continue famotidine Hypothyroid Continue Synthroid F/E/N -Hep-Lock, monitor electrolytes, regular diet as tolerated ProphylaxisSCDs CodeDNR/DNI per discussion with patient Dispositionadmit to medical telemetry Admission and Anticipated Discharge Date Admission Date: June 18, 2022 Supervising Physician Co-Signing Physician Notes Resident Physician Supervision Note: I independently interviewed and examined the patient and verified the sinclair history and physical, reviewed labs and image studies and agree with resident findings and care plan. Subjective Patient was seen bedside this morning. She is currently on 2 L nasal cannula. She denies any shortness of breath at this time. She states though that she is tired and fatigued. Review of Systems Review of Systems: All systems reviewed & are unremarkable except as noted in Subjective Physical Exam Constitutional: + thin; no acute distress ENMT: external ear and nose normal, oropharynx normal Respiratory: normal respiratory effort Auscultation: + diminished lung sounds (Bilateral lower lobes) and + rales (Right lower lung) Cardiovascular: Rate/Rhythm: + irregularly irregular Extremities: no edema Gastrointestinal (Abdomen): normal bowel sounds, soft, nontender, no hepatosplenomegaly Skin: no rashes, warm and dry Results & Data Results & Data Vital Signs (Past 12 Hours) Vital Signs Temp Pulse Pulse Resp BP BP Pulse Ox 06/18/22 05:37 37.0 C 72 18 114/63 99 06/18/22 03:09 06/18/22 03:09 36.5 C 81 19 93 06/18/22 02:00 75 18 98/49 L 95 06/18/22 01:30 76 18 93/54 L 95 06/18/22 00:30 79 21 93/57 L 97 06/17/22 23:44 84 20 89/57 L 98 06/17/22 23:38 89 20 98/48 L 97 06/17/22 23:10 90 06/17/22 23:14 85 06/17/22 23:14 87 99 06/17/22 23:06 36.7 C 80 18 86/51 L 90 O2 Del Method O2 Flow Rate 06/18/22 05:37 Nasal Cannula 2 06/18/22 03:09 Nasal Cannula 2 06/18/22 03:09 Nasal Cannula 2 06/18/22 02:00 Nasal Cannula 1 06/18/22 01:30 Nasal Cannula 1 06/18/22 00:30 Nasal Cannula 2 06/17/22 23:44 Nasal Cannula 2 06/17/22 23:38 Nasal Cannula 2 06/17/22 23:10 Room Air 06/17/22 23:14 06/17/22 23:14 Nasal Cannula 2 06/17/22 23:06 Room Air Resident Activity Tracking Resident Involvement: Resident Care Provided Care Provided: Adult Hospital Medicine (2) Hypotension Hypotension type: unspecified hypotension type Qualified Code(s): I95.9 - Hypotension, unspecified
--- NOTE | 2022-06-18 07:36 | XRay Report ---
XR chest 1V portable CLINICAL HISTORY: Dyspnea. COMPARISON STUDY: Chest radiograph June 16, 2022. FINDINGS: There is no pneumothorax. Small left pleural effusion is similar to prior exam. Small to mo derate right pleural effusion has slightly increased. Pulmonary edema has slightly progressed. Bibasi lar opacities are again noted. Cardiomegaly is unchanged. IMPRESSION: 1. Small to moderate right and small left pleural effusions with persistent bibasilar opacities which could reflect consolidation or atelectasis. 2. Cardiomegaly with mild interstitial pulmonary edema. ACT 112: Negative or not required by law. Electronically signed by: Navjot Bone M.D. 06/18/2022 7:35 AM
--- NOTE | 2022-06-18 08:09 | Pulmonary Consultation ---
Patient seen and examined. EMR reviewed. The patient has had rapid reaccumulation of the pleural fluid which is suggestive of poorly controlled volume status or potential trapped lung. She is unclear if she sustained significant relief from the prior thoracentesis. Would not recommend serial thoracentesis to manage the patient's volume status at this point time. If her blood pressure is low, scaling back on her antihypertensive regiment to allow for diuresis may be appropriate and is deferred to the patient's primary admitting service as well as her filbert grower. We will sign off at this point time. Feel free to contact us with questions or concerns Date of Consultation June 18, 2022 Assessment & Plan (1) Pleural effusion due to CHF (congestive heart failure): (2) Chronic diastolic (congestive) heart failure: (3) Hypoxia: Plan IMPRESSION: 86-year-old female with significant past medical history of recurrent RIGHT-sided pleural effusion secondary to CHF presenting with shortness of breath and syncopal episode with findings of reaccumulation of RIGH T-sided pleural effusion. RECOMMENDATIONS: 1. Pleural effusion - * Effusion has been drained at least 4 times and has demonstrated transudative process most likely related to patient's CHF. * Underwent thoracentesis on 06/16/2022 with drainage of 1500 mL of fluid. Patient reports transient relief of symptoms. * Currently, she is without respiratory distress and saturating well on 2L NC. * Would defer repeat thoracentesis at this time as the patient has reaccumulated so rapidly, received no significant clinical benefit, and is in no respiratory distress. Additionally, patient remains on apixaban 2.5 mg BID which would need to be held again for an additional 24-48 hours prior to intervention. * Would recommend continued diuresis as directed by cardiology and primary service. Thank you for allowing us to participate in the care of this patient. Please call if we can be of additional assistance History of Present Illness Reason for Consultation: pleural effusion, hypoxia Requesting Physician: Dr. Schwartz Attending Physician: Abby Lind MD History of Present Illness Patient bilateral is an 86-year-old female with a significant past medical history of CKD 3, chronic A-fib anticoagulated on DOAC, recurrent pleural effusions, severe mitral valve stenosis, GERD, chronic diastolic heart failure, hypotension, and hypoxia. The patient had been seen in the pulmonary clinic in the past and during hospitalizations for recurrent RIGHT-sided pleural effusion. She actually underwent thoracentesis 06/16 with drainage of 1500 mL pleural fluid. She states that she may have felt slightly better shortly after, but then had return of dyspnea on exertion. She was discharged to home and then returned with complaints of shortness of breath and episode of syncope. Pulm onary medicine consulted for evaluation of ongoing pleural effusion. Upon evaluation in room B10 in the emergency department, the patient is awake, alert, and oriented. She states that her breathing has improved somewhat at this point. She is saturating well on 2 L nasal cannula. She reports that her dyspnea on exertion had been worse prior to arrival, but improved with the treatment she has received at this point. Patient currently denies any complaints of chest pain, palpitations, pleuritic pain, hemoptysis, nausea, vomiting, or abdominal discomfort. Allergies Allergy/AdvReac Type Severity Reaction Status Date / Time No Known Allergies Allergy Verified 06/18/22 01:01 Home Medications Medication Instructions Recorded Confirmed Type apixaban 2.5 mg tablet 2.5 mg PO BID 10/18/18 06/18/22 History digoxin 125 mcg (0.125 mg) tablet 125 mcg PO 3XWK 10/18/18 06/18/22 History levothyroxine 75 mcg tablet 75 mcg PO QAM 10/18/18 06/18/22 History cyanocobalamin (vitamin B-12) 1,000 mcg PO QDL 09/26/20 06/18/22 History 1,000 mcg tablet (Vitamin B-12) bumetanide 0.5 mg tablet 1 mg PO Q OTHER DAY 06/14/22 06/18/22 History famotidine 20 mg tablet 20 mg PO QAM 06/14/22 06/18/22 History hydrocortisone 2.5 % topical cream 1 applic IA UD 06/14/22 06/18/22 History with perineal applicator nystatin 100,000 unit/gram topical 1 applic topical UD 06/14/22 06/18/22 History ointment diltiazem HCl 240 mg 240 mg PO DAILY #30 caps 06/17/22 06/18/22 Rx capsule,extended release 24 hr sacubitril 49 mg-valsartan 51 mg 1 tab PO BID 4 weeks #56 tabs 06/17/22 06/18/22 Rx tablet (Entresto) Patient History Medical History Atrial fibrillation A FEW YEARS AGO , CARDIOVERSION UNSUCCESSFUL. FOLLOW WITH DR POZO TAKES DIG AND DILTIAZEM AND ELIQUIS Atrial fibrillation Chronic anticoagulation (~03/05/21) Chronic diastolic (congestive) heart failure Chronic kidney disease, stage 3 CARPENTER (dyspnea on exertion) Extremity edema TAKES LASIX NEEDED Abhinav's thyroiditis Pleural effusion Pleural effusion due to CHF (congestive heart failure) Recurrent right pleural effusion Severe mitral valve stenosis Shortness of breath Surgical History History of laparotomy SMALL BOWEL OBSTRUCTION DUE TO ADHESION 2018 Hx of colonoscopy Hx of inguinal hernia surgery (04/21/19) Right Open Inguinal Hernia with Mesh Dr. Kumar 04/21/19 Family History Sister Hearing loss Heart disease Brother Hearing loss Heart disease Other No family history of adverse response to anesthesia No family history of bleeding disorder Denies family history of Kidney disease Social History Smoking Status: Never smoker Second Hand Exposure: No; Hx Alcohol Use: No Hx Substance Use: No Preferred Language: Namibian Communication Ability: Effective Visual Impairment: No Limitations Production Troubleshooter Required: No Beliefs That Will Affect Care: None marital status: / Current Living Situation: Alone Current Living Situation Comment: apartment current occupational status: retired Other Information That Helps Us Care for You: No Feels Safe at Home: Yes Safety Concerns: Feels Safe At This Time Assistive Devices: Hearing Aid - Right Review of Systems Review of Systems: A complete 10 point review of systems was reviewed with the patient with pertinent positives and negatives as per history of present illness. All else were negative. Physical Exam Physical Exam: VITAL SIGNS - Vital signs and nursing notes were reviewed. GENERAL - 86-year-old female appearing her stated age who is in no acute distress. Communicates well with provider and answers questions appropriately. NOSE - Midline and without cyanosis. MOUTH/OROPHARYNX - Without perioral cyanosis. NECK - Neck with FROM. LUNGS - Chest wall evaluation demonstrates normal chest wall A:P diameter. Auscultation reveals decreased breath sounds at the bilateral bases with RIGHT sided rales appreciated. CARDIAC - RRR with S1/S2. No murmur, rubs, or gallops appreciated. ABDOMEN - Abdominal inspection demonstrates a flat abdomen. BS normoactive all four quadrants. No tenderness, palpable masses, or ascites noted. EXTREMITIES - Nail clubbing not present. No peripheral cyanosis. No pretibial edema present. +3/5 radial palpated throughout. PSYCH - A&Ox3 and cooperates fully with examiner. Pt is very pleasant and interacts well with examiner. Results & Data Results & Data Vital Signs (Past 12 Hours) Vital Signs Temp Pulse Pulse Resp BP BP Pulse Ox 06/18/22 05:37 37.0 C 72 18 114/63 99 06/18/22 03:09 06/18/22 03:09 36.5 C 81 19 93 06/18/22 02:00 75 18 98/49 L 95 06/18/22 01:30 76 18 93/54 L 95 06/18/22 00:30 79 21 93/57 L 97 06/17/22 23:44 84 20 89/57 L 98 06/17/22 23:38 89 20 98/48 L 97 06/17/22 23:10 90 06/17/22 23:14 85 06/17/22 23:14 87 99 06/17/22 23:06 36.7 C 80 18 86/51 L 90 O2 Del Method O2 Flow Rate 06/18/22 05:37 Nasal Cannula 2 06/18/22 03:09 Nasal Cannula 2 06/18/22 03:09 Nasal Cannula 2 06/18/22 02:00 Nasal Cannula 1 06/18/22 01:30 Nasal Cannula 1 06/18/22 00:30 Nasal Cannula 2 06/17/22 23:44 Nasal Cannula 2 06/17/22 23:38 Nasal Cannula 2 06/17/22 23:10 Room Air 06/17/22 23:14 06/17/22 23:14 Nasal Cannula 2 06/17/22 23:06 Room Air PG Care Time/CCT Total # of Minutes Spent Total Time Spent with Patient: Total time spent is greater than 50% in coordination of care (as documented) at patient's floor/unit and/or counseling patient: Coding Level of Care Code 94134 INT INP/OBS CARE 3/75MIN Diagnoses Pleural effusion due to CHF (congestive heart failure) I50.9 Chronic diastolic (congestive) heart failure I50.32 Hypoxia R09.02
--- NOTE | 2022-06-18 08:16 | XRay Report ---
XR chest 1V portable HISTORY: 86 years-old Female pleural effusion follow-up study in a patient with pleural effusions COMPARISON: 06/18/2022 TECHNIQUE: AP view of the chest FINDINGS: Cardiac silhouette is enlarged. Right greater than left layering pleural effusions with bibasilar con solidation appears stable from prior. Pulmonary vascular congestion with mild interstitial coarsening . No pneumothorax. Degenerative changes of the shoulders and spine. IMPRESSION: 1. Cardiomegaly with unchanged pulmonary edema. 2. Stable right greater than left pleural effusions with bibasilar consolidation. ACT 112: Negative or not required by law. The above report was generated using voice recognition software. It may contain grammatical, syntax o r spelling errors. Electronically signed by: Devyn Padilla M.D. 06/18/2022 8:15 AM
[2022-06-18] MEDS: FAMOTIDINE 20 MG TAB PO SCH (09:01)
--- NOTE | 2022-06-18 10:12 | Electrocardiogram Report ---
Test Reason : Blood Pressure : / mmHG Vent. Rate : 087 BPM Atrial Rate : 080 BPM P-R Int : 000 ms QRS Dur : 080 ms QT Int : 324 ms P-R-T Axes : 000 -78 029 degrees QTc Int : 389 ms Atrial fibrillation Left anterior fascicular block Abnormal ECG When compared with ECG of 14-JUN-2022 12:03, No significant change Confirmed by Momo Balderas ([id number]) on 06/18/2022 10:12:40 AM Referred By: REFERRED SELF Confirmed By:Momo Balderas
--- NOTE | 2022-06-18 14:39 | XCELERA ---
[id number]___[id number]
--- NOTE | 2022-06-18 16:58 | Cardiology Consultation ---
Date of Consultation June 18, 2022 Assessment & Plan (1) Syncope: (2) Pleural effusion due to CHF (congestive heart failure): (3) (HFpEF) heart failure with preserved ejection fraction: (4) Severe mitral valve stenosis: (5) Severe pulmonary hypertension: (6) Permanent atrial fibrillation: Plan 86-year-old woman with severe mitral stenosis and HFpEF primarily manifesting as recurrent right greater than left pleural effusions who was readmitted after a syncopal episode at home. She does not appear volume overloaded currently and her blood pressure was borderline low, yet her pleural effusions are recurring and she has evidence of increased pulmonary vasculature on chest x-ray. Suspect this is a manifestation of her advanced mitral stenosis, unlikely this will be readily addressed with adjustment of diuretic dosage as she has central vascular congestion behind her stenotic mitral valve with severe pulmonary hypertension even when the systemic vasculature is relatively depleted. Currently, she is stable, would not administer any diuretics in the absence of more obvious volume overload. Etiology of her syncopal episode is unclear but it was with exertion, could have been due to low cardiac output, again related to the physiology of restricted forward flow from severe mitral stenosis. She will be maintained on telemetry to monitor for any dysrhythmia. Currently, her hemodynamics are quite favorable, no specific interventions. Defer to Dr. Luke regarding discussion of therapy goals as her valvular disease reaches a critical point which may not be responsive to further medical management. History of Present Illness Reason for Consultation: syncope, CHF exacerbation Requesting Physician: Abby Lind MD Attending Physician: Abby Lind MD History of Present Illness 86-year-old woman with severe mitral stenosis, HFpEF (Bumex 1 mg Q2D, Entresto), permanent atrial fibrillation (apixaban/digoxin/diltiazem), and chronic kidney disease (creatinine 1.41) who had been experiencing a recurrent right pleural transudative effusion felt secondary to diastolic dysfunction/valvular heart disease for which she had been undergoing repeated thoracenteses, recently hospitalized and had thoracentesis but after returning home had a syncopal episode while walking from her car to her apartment and on ER evaluation was found to have rapid recurrence of her right pleural effusion. She had felt fatigued but otherwise reasonably well, went grocery shopping, while walking back from her car to her apartment she had a syncopal episode and lost consciousness but had no traumatic injuries. She denies any prodrome, chest pain, incontinence, or postevent confusion or other sequelae. At the time of my evaluation in the emergency department, she was comfortable on 2 L nasal cannula at rest and had no somatic complaints. The patient is followed routinely for her cardiology issues by Dr. Vaibhav Luke. Allergies Allergy/AdvReac Type Severity Reaction Status Date / Time No Known Allergies Allergy Verified 06/18/22 01:01 Home Medications Medication Instructions Recorded Confirmed Type apixaban 2.5 mg tablet 2.5 mg PO BID 10/18/18 06/18/22 History digoxin 125 mcg (0.125 mg) tablet 125 mcg PO 3XWK 10/18/18 06/18/22 History levothyroxine 75 mcg tablet 75 mcg PO QAM 10/18/18 06/18/22 History cyanocobalamin (vitamin B-12) 1,000 mcg PO QDL 09/26/20 06/18/22 History 1,000 mcg tablet (Vitamin B-12) bumetanide 0.5 mg tablet 1 mg PO Q OTHER DAY 06/14/22 06/18/22 History famotidine 20 mg tablet 20 mg PO QAM 06/14/22 06/18/22 History hydrocortisone 2.5 % topical cream 1 applic [place] UD 06/14/22 06/18/22 History with perineal applicator nystatin 100,000 unit/gram topical 1 applic topical UD 06/14/22 06/18/22 History ointment diltiazem HCl 240 mg 240 mg PO DAILY #30 caps 06/17/22 06/18/22 Rx capsule,extended release 24 hr sacubitril 49 mg-valsartan 51 mg 1 tab PO BID 4 weeks #56 tabs 06/17/22 06/18/22 Rx tablet (Entresto) Patient History Medical History Atrial fibrillation A FEW YEARS AGO , CARDIOVERSION UNSUCCESSFUL. FOLLOW WITH DR LUKE TAKES DIG AND DILTIAZEM AND ELIQUIS Atrial fibrillation Chronic anticoagulation (~03/05/21) Chronic diastolic (congestive) heart failure Chronic kidney disease, stage 3 CARPENTER (dyspnea on exertion) Extremity edema TAKES LASIX NEEDED Abhinav's thyroiditis Pleural effusion Pleural effusion due to CHF (congestive heart failure) Recurrent right pleural effusion Severe mitral valve stenosis Shortness of breath Surgical History History of laparotomy SMALL BOWEL OBSTRUCTION DUE TO ADHESION 2018 Hx of colonoscopy Hx of inguinal hernia surgery (04/21/19) Right Open Inguinal Hernia with Mesh Dr. Kumar 04/21/19 Family History Sister Hearing loss Heart disease Brother Hearing loss Heart disease Other No family history of adverse response to anesthesia No family history of bleeding disorder Denies family history of Kidney disease Social History Smoking Status: Never smoker Second Hand Exposure: No; Hx Alcohol Use: No Hx Substance Use: No Preferred Language: Israeli Communication Ability: Effective Visual Impairment: No Limitations Staff Veterinarian Required: No Beliefs That Will Affect Care: [employer]aritan marital status: / Current Living Situation: Alone Current Living Situation Comment: apartment current occupational status: retired Other Information That Helps Us Care for You: No Feels Safe at Home: Yes Safety Concerns: Feels Safe At This Time Assistive Devices: None Physical Exam Physical Exam: Thin elderly white female in no distress. BMI 19.5. BP initially mildly hypotensive, most recently 112/57 mmHg. Pulse 75 bpm and irregular. Respirations 21 but unlabored. Skin: no ecchymoses or generalized lesions. HEENT: unremarkable. Neck: Jugular venous pulse at or just below the clavicle at 90 degrees, no carotid bruits. Lungs: Absent breath sounds snf up on the right and at the left base, otherwise generally clear. No wheezing or accessory muscle use. Cardiac: Irregular rhythm, accentuated first heart sound with opening snap, soft diastolic blow and harsh holosystolic murmur heard best left sternal border. Abdomen: benign. Extremities: no edema, pulses intact. Neurologic: normal affect and conversation, nonfocal. Results & Data Vital Signs (Past 12 Hours) Vital Signs Temp Pulse Resp BP Pulse Ox O2 Del Method O2 Flow Rate 06/18/22 12:00 75 21 112/57 L 98 Nasal Cannula 3 06/18/22 05:37 98.6 F 72 18 114/63 99 Nasal Cannula 2 Laboratory Results Normal electrolytes, BUN 34, creatinine 1.41. Diagnostic Findings ECG showed atrial fibrillation at 87 bpm with left anterior fascicular block, compared with 06/14/2022 study, no significant change. No acute ST abnormalities. Chest x-ray showed right greater than left pleural effusions with bibasilar consolidation and mildly increased vasculature throughout. Echocardiogram today showed EF 65 to 70% with moderate AI/severe MS/mild MR/severe TR/RVSP greater than 60 mmHg. Compared with 2020 study, severity of aortic and tricuspid regurgitation has increased, otherwise no significant change. PG Care Time/CCT Total # of Minutes Spent Total Time Spent with Patient: Total time spent is greater than 50% in coordination of care (as documented) at patient's floor/unit and/or counseling patient: Coding Level of Care Code 20957 INT INP/OBS CARE 3/75MIN Diagnoses Syncope R55 Pleural effusion due to CHF (congestive heart failure) I50.9 (HFpEF) heart failure with preserved ejection fraction I50.30 Severe mitral valve stenosis I05.0 Severe pulmonary hypertension I27.20 Permanent atrial fibrillation I48.21
[2022-06-18] MEDS: DIGOXIN 0.125 MG TAB PO SCH (17:54)
[2022-06-19] MEDS: LEVOTHYROXINE SODIUM 75 MCG TABLET PO SCH (05:47)
[2022-06-19 06:39] LABS: Hematocrit (blood only) 39.4 % (37.0-47.0); Mean Corpuscular Hemoglobin 34.1 pg (25.0-34.0); Mean Corpuscular Volume 103.4 fL (80.0-100.0); Mean Platelet Volume 11.6 fL (9.4-12.4); Platelet Count 133 K/uL (130-400); RDW Coefficient of Variation 13.4 % (11.5-14.5); RDW Standard Deviation 50.9 fL (36.4-46.3); Red Blood Count 3.81 M/uL (4.20-5.40); White Blood Count 4.33 K/ul (4.8-10.8)
--- NOTE | 2022-06-19 06:43 | Hospitalist Progress Note ---
Date of Service June 19, 2022 Assessment & Plan (1) Pleural effusion due to CHF (congestive heart failure): (2) Hypotension: (3) Chronic diastolic (congestive) heart failure: (4) Atrial fibrillation: (5) GERD (gastroesophageal reflux disease): (6) Hypothyroid: Plan 86-year-old female with history of atrial fibrillation, CHF, CKD and hypothyroidism - recent hospitalization for acute hypoxic respiratory failure secondary to pleural effusion from CHF status post thoracentesis with removal of 1500 mL transudative fluid returning to the ER after syncopal event. Acute respiratory failure - Sec to severe PulHTN with Pleural effusion and severe valvular heart ds. Patient was mildly hypoxic in the ED saturating in the 90%, currently on 2 L nasal cannula. Pleural effusion due to CHF (congestive heart failure) Patient was hypotensive in the ED, so no IV diuretics were given at that time. Continue supplemental oxygen as needed Chest x-ray showed unchanged pulmonary edema, pleural effusion R>L with bibasilar consolidation. Pulmonary consultation and the defers thoracocentesis at this time due to no significant clinical benefit. Cardiology recommends palliative care discussion given the patient has progre ssing valvulopathy. Palliative care consulted at this time. Syncope Hypotension Severe Pul HTN and severe Mitral stenosis Severe Mitral stenosis likely causing syncope. Patient with low blood pressures in the ER. Hold diltiazem, Entresto, Bumex Cardiology consult recommend not restarting Entresto at this time. Severe Pul HtN with Mitral stenosis likely contributing. - cardio recommends palliative discussion as stated above. Chronic diastolic (congestive) heart failure Bilateral pleural effusions most likely secondary to acute on chronic diastolic heart failure. Patient with low blood pressure in the ER. No IV diuresis at this time We will hold Entresto and bumex given low blood pressures Atrial fibrillation Rate controlled. Anticoagulated on apixaban 2.5 mg p.o. twice daily. Hold diltiazem for now given low blood pressures Resume Apixiban. Continue digoxin 0.25 mg p.o. q. Thursday Telemetry monitoring GERD (gastroesophageal reflux disease) Continue famotidine Hypothyroid Continue Synthroid F/E/N -Hep-Lock, monitor electrolytes, regular diet as tolerated ProphylaxisSCDs, apixiban CodeDNR/DNI per discussion with patient Dispositionadmit to medical telemetry. Palliative consulted. Admission and Anticipated Discharge Date Admission Date: June 18, 2022 Supervising Physician Co-Signing Physician Notes Resident Physician Supervision Note: I independently interviewed and examined the patient and verified the sinclair history and physical, reviewed labs and image studies and agree with resident findings and care plan. Subjective Patient was seen bedside this morning. No new issues or complaints at this time. Review of Systems Review of Systems: All systems reviewed & are unremarkable except as noted in Subjective Physical Exam Constitutional: + thin; no acute distress ENMT: external ear and nose normal, oropharynx normal Respiratory: normal respiratory effort Auscultation: + diminished lung sounds (Bilateral lower lobes) and + rales (Right lower lung) Cardiovascular: Rate/Rhythm: + irregularly irregular Extremities: no edema Gastrointestinal (Abdomen): normal bowel sounds, soft, nontender, no hepatosplenomegaly Skin: no rashes, warm and dry Results & Data Results & Data Vital Signs (Past 12 Hours) Vital Signs Temp Pulse Pulse Resp BP BP Pulse Ox 06/19/22 02:47 36.4 C L 88 16 120/73 96 06/18/22 21:59 109 H 06/18/22 20:00 06/18/22 22:57 36.7 C 90 18 126/79 94 06/18/22 19:03 36.8 C 80 18 112/69 92 O2 Del Method O2 Flow Rate 06/19/22 02:47 Nasal Cannula 3 06/18/22 21:59 06/18/22 20:00 Nasal Cannula 2 06/18/22 22:57 Nasal Cannula 2 06/18/22 19:03 Nasal Cannula 2 Resident Activity Tracking Resident Involvement: Resident Care Provided Care Provided: Adult Hospital Medicine (2) Hypotension Hypotension type: unspecified hypotension type Qualified Code(s): I95.9 - Hypotension, unspecified
[2022-06-19 07:01] LABS: BUN Creatinine Ratio 24.8 (10-20); Calcium 8.7 mg/dl (8.6-10.3); Creatinine Clr Calc Pharmacy 24.4 ml/min; Est GFR (African American) 42.8 ml/min; Est GFR (Non-African American) 36.9 ml/min; Potassium 4.4 mmol/L (3.5-5.1)
[2022-06-19] MEDS: FAMOTIDINE 20 MG TAB PO SCH (07:45)
--- NOTE | 2022-06-19 13:39 | Cardiology Progress Note ---
Date of Service June 19, 2022 Assessment & Plan (1) Severe pulmonary hypertension: (2) (HFpEF) heart failure with preserved ejection fraction: (3) Chronic diastolic (congestive) heart failure: (4) Severe mitral valve stenosis: (5) Heart failure due to valvular disease: (6) Syncope: (7) Atrial fibrillation: Plan Ms. Pettit's fluid status is difficult to maintain. She was recently started on Entresto which may have contributed to her syncopal event although it sounds like she was likely volume depleted partly due to vomiting. I would recommend the Entresto not be restarted at this point given her low normal blood pressures. Per pulmonology's note, no plans for repeat thoracentesis so her apixaban can be resumed. Clearly aggressive diuresis is not controlling her pulmonary effusions and merely leading to intravascular depletion. Pulmonology does not think a Pleurx is indicated or that she should have routine thoracentesis. Her echo shows progressing valvulopathy. I had a long discussion with Ms. Pettit and her daughter about next steps. l would like her to talk with Palliative care. I think a discussion about goals of care is necessary. I discussed with her that at this stage in her disease it would be reasonable to change the focus to quality of life and comfort. I recommended she not drive anymore which she agreed to. Admission and Anticipated Discharge Date Admission Date: June 18, 2022 Subjective Ms. Pettit has no complaints this morning. She is still wearing supplemental oxygen. No chest pain or sob. No palpitations. Her daughter is at bedside Review of Systems Review of Systems: All systems reviewed & are unremarkable except as noted in HPI & below Physical Exam Constitutional: WD/WN, vitals as above Respiratory: Auscultation: + breath sounds absent (bilateral bases) increased effort of breathing Cardiovascular: Rate/Rhythm: + abnormal rate and + abnormal rhythm Heart Sounds: + murmur (holosystolic murmur apex) Skin: no rashes, warm and dry Neurologic: moves all extremities and awake Psychiatric: A+Ox3, euthymic affect Results & Data Vital Signs (Past 12 Hours) Vital Signs Temp Pulse Pulse Resp BP BP Pulse Ox 06/19/22 11:22 06/19/22 10:58 36.5 C 86 16 105/66 98 06/19/22 07:26 89 06/19/22 02:47 36.4 C L 88 16 120/73 96 O2 Del Method O2 Flow Rate 06/19/22 11:22 Nasal Cannula 2 06/19/22 10:58 Nasal Cannula 3 06/19/22 07:26 06/19/22 02:47 Nasal Cannula 3
[2022-06-19] MEDS: APIXABAN 2.5 MG TAB PO SCH (21:11)
[2022-06-20] MEDS: LEVOTHYROXINE SODIUM 75 MCG TABLET PO SCH (05:49)
[2022-06-20 07:32] LABS: Hematocrit (blood only) 36.4 % (37.0-47.0); Hemoglobin 11.9 g/dl (12.0-16.0); Mean Corpuscular Hemoglobin 33.9 pg (25.0-34.0); Mean Corpuscular Hgb Conc 32.7 g/dL (32.0-36.0); Mean Corpuscular Volume 103.7 fL (80.0-100.0); Mean Platelet Volume 11.5 fL (9.4-12.4); Platelet Count 139 K/uL (130-400); RDW Coefficient of Variation 13.5 % (11.5-14.5); RDW Standard Deviation 52.1 fL (36.4-46.3); Red Blood Count 3.51 M/uL (4.20-5.40); White Blood Count 3.93 K/ul (4.8-10.8)
[2022-06-20 07:36] LABS: Albumin Globulin Ratio 1.1 (0.9-2); Albumin Level 3.3 gm/dl (3.4-5.0); Bilirubin,Total 0.5 mg/dl (0.2-1.0); Calcium 8.5 mg/dl (8.6-10.3); Creatinine Clr Calc Pharmacy 25.4 ml/min; Est GFR (African American) 44.5 ml/min; Est GFR (Non-African American) 38.4 ml/min; Globulin 3.1 gm/dl (2.5-4.0); Potassium 4.4 mmol/L (3.5-5.1); Total Protein 6.4 gm/dl (6.0-8.3)
[2022-06-20 07:37] LABS: Basophils # (auto) 0.02 K/uL (0-0.2); Basophils % (auto) 0.5 %; Eosinophils # (auto) 0.17 K/uL (0-0.50); Eosinophils % (auto) 4.3 %; Immature Granulocytes # (auto) 0.01 K/uL (0.01-0.20); Immature Granulocytes % (auto) 0.3 %; Lymphocytes % (auto) 12.7 %; Monocytes # (auto) 0.45 K/uL (0.11-0.59); Monocytes % (auto) 11.5 %; Neutrophils # (auto) 2.78 K/uL (1.40-6.50); Neutrophils % (auto) 70.7 %; Ovalocytes 1+
[2022-06-20] MEDS ORDERED: METOPROLOL TARTRATE 1 MG/ML VIAL IV ONE (07:53)
--- NOTE | 2022-06-20 08:00 | Hospitalist Progress Note ---
Date of Service June 20, 2022 Assessment & Plan (1) Pleural effusion due to CHF (congestive heart failure): (2) Hypotension: (3) Chronic diastolic (congestive) heart failure: (4) Atrial fibrillation: (5) GERD (gastroesophageal reflux disease): (6) Hypothyroid: Plan 86-year-old female with history of atrial fibrillation, CHF, CKD and hypothyroidism - recent hospitalization for acute hypoxic respiratory failure secondary to pleural effusion from CHF status post thoracentesis with removal of 1500 mL transudative fluid returning to the ER after syncopal event. Acute respiratory failure - Sec to severe PulHTN with Pleural effusion and severe valvular heart ds. Patient was mildly hypoxic in the ED saturating in the 90%, currently on 2 L nasal cannula. Pleural effusion due to CHF (congestive heart failure) Patient was hypotensive in the ED, so no IV diuretics were given at that time. Continue supplemental oxygen as needed Chest x-ray showed unchanged pulmonary edema, pleural effusion R>L with bibasilar consolidation. Pulmonary consultation and the defers thoracocentesis at this time due to no significant clinical benefit. Cardiology recommends palliative care discussion given the patient has progre ssing valvulopathy. Palliative care consulted and seen here. Patient declines the need for palliative care and wishes to continue treating aggressively. Syncope Hypotension Severe Pul HTN and severe Mitral stenosis Severe Mitral stenosis likely causing syncope. Patient with low blood pressures in the ER. Hold diltiazem, Entresto, Bumex Cardiology consult recommend not restarting Entresto at this time. Severe Pul HtN with Mitral stenosis likely contributing. - cardio recommends palliative discussion as stated above. Chronic diastolic (congestive) heart failure Bilateral pleural effusions most likely secondary to acute on chronic diastolic heart failure. Patient with low blood pressure in the ER. No IV diuresis at this time We will hold Entresto and bumex given low blood pressures Atrial fibrillation Rate controlled. Anticoagulated on apixaban 2.5 mg p.o. twice daily. Hold diltiazem for now given low blood pressures Resume Apixiban. Continue digoxin 0.25 mg p.o. q. Thursday Telemetry monitoring GERD (gastroesophageal reflux disease) Continue famotidine Hypothyroid Continue Synthroid F/E/N -Hep-Lock, monitor electrolytes, regular diet as tolerated ProphylaxisSCDs, apixiban CodeDNR/DNI per discussion with patient Dispositionadmit to medical telemetry. Palliative consulted. Admission and Anticipated Discharge Date Admission Date: June 18, 2022 Subjective Patient was seen in chair today. States that she is feeling okay today and that her breathing is fine. States that she was able to sleep last night but in the chair rather than her bed. She denies any chest pain, shortness of breath, nausea or vomiting. Review of Systems Review of Systems: All systems reviewed & are unremarkable except as noted in Subjective Physical Exam Constitutional: + thin; no acute distress ENMT: external ear and nose normal, oropharynx normal Respiratory: normal respiratory effort Auscultation: + diminished lung sounds (Bilateral lower lobes) and + rales (Right lower lung) Cardiovascular: Rate/Rhythm: + irregularly irregular Extremities: + edema (Slight edema in lower extremities) Gastrointestinal (Abdomen): normal bowel sounds, soft, nontender, no hepatosplenomegaly Musculoskeletal: no cyanosis or clubbing, extremities motor strength 5/5 Skin: no rashes, warm and dry Psychiatric: A+Ox3, euthymic affect Results & Data Results & Data Vital Signs (Past 12 Hours) Vital Signs Temp Pulse Pulse Resp BP Pulse Ox O2 Del Method 06/20/22 07:03 70 06/20/22 02:59 36.5 C 69 18 99/60 L 100 Nasal Cannula 06/19/22 22:56 36.5 C 66 18 95/57 L 99 Nasal Cannula 06/19/22 22:00 67 06/19/22 22:05 Nasal Cannula O2 Flow Rate 06/20/22 07:03 06/20/22 02:59 2 06/19/22 22:56 2 06/19/22 22:00 06/19/22 22:05 2 (2) Hypotension Hypotension type: unspecified hypotension type Qualified Code(s): I95.9 - Hypotension, unspecified
[2022-06-20] MEDS: APIXABAN 2.5 MG TAB PO SCH (08:41)
[2022-06-20] MEDS: FAMOTIDINE 20 MG TAB PO SCH (08:41)
--- NOTE | 2022-06-20 09:25 | Palliative Care Consultation ---
Date of Consultation June 20, 2022 Assessment & Plan (1) Palliative care by specialist: Met with pt. Provided overview of Palliative Medicine, a subspecialty that provides specialized medical care for people living with a serious illness by offering a focus on quality of life. Palliative Medicine is often conflated with hospice: I advised patient/family that Palliative and hospice can be partners but we are not the same. It is important to understand the difference so that we may be informed, and not afraid. Palliative Medicine works to improve QOL through reduction of symptom burden/more control over their illness, for both the patient and family. Palliative medicine clinicians are board certified, s pecially-trained and another member of the patient's medical care team. We often provide an extra layer of support because our care is based on the needs of the patient, not the prognosis; as such, it's appropriate at any age/advancing stage of a serious illness and can be provided along with curative treatment. Palliative Medicine clinicians are also trained in advanced communication methodologies, to facilitate complex discussions about advanced illness planning, which are needed to help assure that the treatment choices match the patient's goals, aka delivering Goal Concordant care. Finally, we discussed that hospice is a visiting nurse service that focuses on care delivered at the very end of life for patients with terminal illness, with life expectancy less than 6 month. (2) Advanced care planning/counseling discussion: Met with pt at bedside for 45min face to face ACP discussion. She is very adamant "I'm not as sick as they keep saying, I think they're wrong. I feel fine. They just need to all get on the same page and figure things out." She does not feel she has an advanced cardiac issue. We spoke about the nature of her valve disease and CHF. We spoke about changes we can see as heart failure patients near the terminal or advanced stages of their illness, with attention to: patients may feel increasingly breathless both during activity and at rest, persistent coughing or wheezing/sometimes productive of white or pink mucus and can be worse at night or when lying down; sometimes more physical pain may be present that can often be relieved by non pharmacological remedies such as PT, massage, etc., additionally cognitive impairments may worsen and as such impair the patient's ability to be interactive with their loved ones - this can s ometimes get better with improved volume status but it is unlikely to resolve. We spoke about how end-of-life care in patients with heart failure is an additive process, whereby therapies to treat symptoms not alleviated by guideline-based medical therapy are integrated into the care of these individuals. Once traditional medical therapies and nonpharmacologic therapies have been exhausted, low-dose opioids are generally felt to be first-line adjuvant therapy to treat dyspnea. Finally, we discussed that as a patient transitions to the end of life with HF, there is so much more to do as far as reducing symptom burden and improving QOL - which we as providers can best address via a thoughtful ACP as we have discussed (and outlined above) in place. Lisa was very firm with me that she did not need to think about any of the above issues. She tells me she does not have advanced heart failure and it is only an issue of people not managing her meds well. She also perceives being told "all these horrible things about my health this admission but not once before, so why now am I 'just' hearing about all these serious problems I supposedly have?" Advised that these are generally ongoing discussions and we spoke about how heart failure is a chronically, progressive disease. We reviewed that all chronic/progressive disease has a declining trajectory over time where facets of patient self-identity and independence are lost. Every acute event leads to a further decline, resulting- many times, in a new baseline. Advised that the greatest priority is to determine what matters most to pt, then family and to develop a plan of care that is aligned with those priorities. She states "I am fine, I will go back to my apartment and I can take care of myself, my family is there if I need them. I have plenty of help." She explicitly makes it clear she will not go to a fdc and does not need one. She denies the offer for home health support and she is not interested in hospice. (3) Dyspnea and respiratory abnormalities: (4) Weakness generalized: (5) Heart failure due to valvular disease: (6) Severe pulmonary hypertension: (7) (HFpEF) heart failure with preserved ejection fraction: Plan Lisa states she will be returning to her apartment and living her usual best life. She does not believe her cardiac issues are as serious as everyone has been trying to convey this admission and feels that this news of its seriousness is "all of a sudden" and that interventions to date have been unsuccessful and we need to try harder to make something work for her. She has a strong denial of her medical condition being chronically progressive and incurable. She is unable to process the complexity of the issues and their interconnection. She feels she has never been advised of these issues until this admission and on some level, to her, "it feels like everyone is just ganging up on me to tell me how bad things are for me but they never said it before, and like I said, I feel fine, so I don't think they're right saying those things to me." She politely declines any Palliative medicine follow up. She is agreeable to ongoing conversation in cardiology clinic with her provider to better understand her disease. I anticipate she is moderate information seeking and needs information / education provided in an ongoing manner, with small amounts of info that build on each other from visit to visit. Cardiac nurse driven education in clinic may be helpful as well as providing patient with written materials about her cardiac illness and its advanced stages. Additional information about Palliative Medicine in heart failure can be downloaded and printed for patient from [email or web address] I will sign off. Patient does not want further follow up with us but tells me she will call if she feels we may be of more service in future. She accepted by [facility] for future reference. I did not discuss hospice as she is very clear about desiring continued treatment and resuming her [employer] lifestyle. There may be some issues with denial and perception of illness specific updates not being communicated however I suspect this is more about her unwillingness to process/understand the information when it is presented rather than it never having been provided to her. Thank you for allowing us to participate in the ongoing care of this patient. Please don't hesitate to call or page with any additional concerns. Dr. Aubree Bonilla DNP Director, Palliative Care History of Present Illness Reason for Consultation: On 06/19/22 @ 12:28 Ramona Barajas Wrote To Jennifer Romo progressive valvular heart failure, goals of care Attending Physician: Abby Lind MD History of Present Illness Lisa is an 86yo female with known severe mitral stenosis and HFpEF with chronic R > L pleural effusions who was readmitted after a syncopal episode at home. She denies chest pain, n/v/d/c She denies anorexia She denies weakness or prior falls She states the only reason she fell is because she was home too soon Her effusion has been drained approx 4-5 times , +transudative process and attributed to her CHF. Her thora of 06/16/22 drained 1500ML With rapid reaccumulation, diuresis was suggested, however, aggressive diuresis has not been effective in controlling effusions and has led to intravascular depletion. Pulm did not recc Pleurx or repeat thoracentesis. Cardiology notes today state in aprt: "I had a long discussion with Ms. Pettit and her daughter about next steps. l would like her to talk with Palliative care. I think a discussion about goals of care is necessary. I discussed with her that at this stage in her disease it would be reasonable to change the focus to quality of life and comfort." pt is seen bedside, no family present We were asked to see her for GOC and ACP discussion She tells me she lives in a senior apartment complex behind the [place]. She is on the 6th floor. She can navigate her apartment independently, remains IADLs and has extensive family and friends support with her children, grandchildren and sisters. Allergies Allergy/AdvReac Type Severity Reaction Status Date / Time No Known Allergies Allergy Verified 06/18/22 01:01 Home Medications Medication Instructions Recorded Confirmed Type apixaban 2.5 mg tablet 2.5 mg PO BID 10/18/18 06/18/22 History digoxin 125 mcg (0.125 mg) tablet 125 mcg PO 3XWK 10/18/18 06/18/22 History levothyroxine 75 mcg tablet 75 mcg PO QAM 10/18/18 06/18/22 History cyanocobalamin (vitamin B-12) 1,000 mcg PO QDL 09/26/20 06/18/22 History 1,000 mcg tablet (Vitamin B-12) bumetanide 0.5 mg tablet 1 mg PO Q OTHER DAY 06/14/22 06/18/22 History famotidine 20 mg tablet 20 mg PO QAM 06/14/22 06/18/22 History hydrocortisone 2.5 % topical cream 1 applic NJ UD 06/14/22 06/18/22 History with perineal applicator nystatin 100,000 unit/gram topical 1 applic topical UD 06/14/22 06/18/22 History ointment diltiazem HCl 240 mg 240 mg PO DAILY #30 caps 06/17/22 06/18/22 Rx capsule,extended release 24 hr sacubitril 49 mg-valsartan 51 mg 1 tab PO BID 4 weeks #56 tabs 06/17/22 06/18/22 Rx tablet (Entresto) Patient History Medical History (Updated 06/20/22 @ 13:20 by Aubree Bonilla DNP) Advanced care planning/counseling discussion Atrial fibrillation A FEW YEARS AGO , CARDIOVERSION UNSUCCESSFUL. FOLLOW WITH DR POZO TAKES DIG AND DILTIAZEM AND ELIQUIS Atrial fibrillation Chronic anticoagulation (~03/05/21) Chronic diastolic (congestive) heart failure Chronic kidney disease, stage 3 Constipation Discharge planning issues CARPENTER (dyspnea on exertion) DVT prophylaxis Dyspnea and respiratory abnormalities Extremity edema TAKES LASIX NEEDED Abhinav's thyroiditis Hypotension Hypoxia Hypoxia Palliative care by specialist Pleural effusion Pleural effusion Pleural effusion due to CHF (congestive heart failure) Recurrent right pleural effusion Severe mitral valve stenosis Shortness of breath Vomiting Weakness generalized Surgical History History of laparotomy SMALL BOWEL OBSTRUCTION DUE TO ADHESION 2018 Hx of colonoscopy Hx of inguinal hernia surgery (04/21/19) Right Open Inguinal Hernia with Mesh Dr. Kumar 04/21/19 Family History Sister Hearing loss Heart disease Brother Hearing loss Heart disease Other No family history of adverse response to anesthesia No family history of bleeding disorder Denies family history of Kidney disease Social History Smoking Status: Never smoker Second Hand Exposure: No; Hx Alcohol Use: No Hx Substance Use: No Preferred Language: Armenian Communication Ability: Effective Visual Impairment: No Limitations Chair Installer Required: No Beliefs That Will Affect Care: Jainism marital status: / Current Living Situation: Alone Current Living Situation Comment: apartment current occupational status: retired Feels Safe at Home: Yes Assistive Devices: None Review of Systems Review of Systems: All systems reviewed & are unremarkable except as noted in Subjective Physical Exam Physical Exam: Resting in recliner, NAD Bitemp wasting Thin frail appearing elderly female PERRLA, EOMIs Neck supple Lung diminished bases with crackles, mild conversational dyspnea and pursed lip breathing with prolonged discussion CV irreg irrge, +murmur/holosystolic at pex Abd soft, NTP PARKER Generalized weakness Skin pale , cool to touch, no cyanosis or clubbing AAOx3. Mood mildly irritable at beginning of consult, was improved by end of visit. Results & Data Vital Signs (Past 12 Hours) Vital Signs Temp Pulse Pulse Resp BP BP Pulse Ox 06/20/22 08:36 06/20/22 08:16 36.4 C L 77 18 95/56 L 98 06/20/22 07:03 70 06/20/22 02:59 36.5 C 69 18 99/60 L 100 06/19/22 22:56 36.5 C 66 18 95/57 L 99 06/19/22 22:00 67 06/19/22 22:05 O2 Del Method O2 Flow Rate 06/20/22 08:36 Nasal Cannula 2 06/20/22 08:16 Nasal Cannula 2 06/20/22 07:03 06/20/22 02:59 Nasal Cannula 2 06/19/22 22:56 Nasal Cannula 2 06/19/22 22:00 06/19/22 22:05 Nasal Cannula 2 Laboratory Results reviewed Diagnostic Findings reviewed PG Care Time/CCT Total # of Minutes Spent Total Time Spent: 90 Total Time Spent with Patient: Total time spent is greater than 50% in coordination of care (as documented) at patient's floor/unit and/or counseling patient: Advanced Care Planning 62134 Advanced Care Planning 30 Min 36083 Advanced Care Planning Additional 30 [place] [address] IN/OBS CONSULT LVL 5,80M Patient Type New History Comprehensive Exam Comprehensive Medical Decision Making High Complexity Diagnoses Palliative care by specialist Z51.5 Advanced care planning/counseling discussion Z71.89 Dyspnea and respiratory abnormalities R06.00; R06.89 Weakness generalized R53.1 Heart failure due to valvular disease I50.9; I38 Severe pulmonary hypertension I27.20 (HFpEF) heart failure with preserved ejection fraction I50.30 Additional Codes Advanced Care Planning - 20853 Advanced Care Planning 30 Min: 59629 Advanced Care Planning 30 Min ([id number]) Advanced Care Planning - 95520 Advanced Care Planning Additional 30 Min: 87976 Advanced Care Planning Additional 30 Min ([id number])
[2022-06-20 11:30] VITALS: TEMP 97.3
--- NOTE | 2022-06-20 16:08 | Discharge Summary ---
Date of Service June 20, 2022 Admission HPI Per Admitting Provider Lisa Pettit is an 86yo female with history AF, CHF and CKD presenting with SOB, syncope. Patient was recently admitted to [facility] from 06/14/22 - 06/17/22 after presenting with acute hypoxic respiratory secondary to pleural effusion from chronic diastolic heart failure. She had a thoracentesis on 06/16/22 with 1500mL transudative fluid removed. Patient had low blood pressures during her stay. Her Entresto, Bumex and Diltiazem were held temporarily. On discharge, her Diltiazem was decreased from 360mg to 240mg and her Entresto was increased to 24-26mg tablet. Patient was discharged home on 06/17/22. As she was walking into her home she had a syncopal event and collapsed onto the sidewalk. She denies head trauma or pain. Her neighbors assisted her and her son came and brought her back to the ER. At this time she is complaining only of shortness of breath. She denies chest pain, abdominal pain, nausea, vomiting, diarrhea or constipation. Denies fever/chills. In the ER she is mildly hypoxic at 90% on room air. She was placed on 2L NC with improvement in saturation - now 93%. Blood pressure has been borderline low - 86/51 on arrival, now 98/49. CXR suggestive of some reaccumulation of right pleural effusion. Admission Exam Per Admitting Provider General: Frail, elderly female patient resting comfortably, NAD, non-toxic in appearance, AA&O x 4, nasal cannula in place at 2 L Skin: warm, dry, intact, no rashes or lesions HEENT: NC/AT, PERRL, EOMI, anicteric sclera, conjunctiva without injection, external ear normal to inspection and nontender, nares patent, moist mucus membranes, dentition intact, no oropharyngeal lesions, neck supple, trachea midline, no LAD, no thyromegaly, no JVD Heart: +S1/S2, irregularly irregular, systolic ejection murmur across precordium, no rub/gallop Lungs: Diminished breath sounds at bilateral bases right greater than left, no wheeze or rhonchi. No respiratory distress. Abd: +BS, soft, NT/ND, no masses/organomegaly/ascites Ext: warm, 2+ pulses in UE/LE bilaterally, no clubbing/cyanosis, 1+ pitting edema left ankle (patient reports is chronic and unchanged) Neuro: nonfocal, patient AA&O x 4, speech intact, no facial droop, moving all extremities on command with equal strength 5/5 Principal Diagnosis Pleural effusion due to congestive heart failure Discharge Exam Constitutional + thin; no acute distress Eyes PERRL, conjunctivae normal, anicteric sclerae ENMT external ear and nose normal, oropharynx normal Respiratory Auscultation: + diminished lung sounds (Bilaterally lower lobes) and + rales (Right lower lobe) Cardiovascular Rate/Rhythm: + irregularly irregular Gastrointestinal (Abdomen) normal bowel sounds, soft, nontender, no hepatosplenomegaly Musculoskeletal no cyanosis or clubbing, extremities motor strength 5/5 Skin no rashes, warm and dry Psychiatric A+Ox3, euthymic affect Discharge Data Allergies Allergy/AdvReac Type Severity Reaction Status Date / Time No Known Allergies Allergy Verified 06/18/22 01:01 Consultations 06/18/22 01:16 ED Decision to Admit Stat 06/18/22 02:18 Consult Pulmonology Routine 06/18/22 13:54 Consult Cardiology Routine 06/19/22 12:27 Consult Palliative Care Routine Procedures Performed Cardiac Enzymes 06/20/22 Range/Units 06:45 AST 24 (13-39) U/L CBC 06/20/22 Range/Units 06:45 WBC 3.93 L (4.8-10.8) K/ul RBC 3.51 L (4.20-5.40) M/uL Hgb 11.9 L (12.0-16.0) g/dl Hct 36.4 L (37.0-47.0) % Plt Count 139 (130-400) K/uL Neut # (Auto) 2.78 (1.40-6.50) K/uL Lymph # (Auto) 0.50 L (1.2-3.4) K/uL [place] # (Auto) 0.45 (0.11-0.59) K/uL Eos # (Auto) 0.17 (0-0.50) K/uL Baso # (Auto) 0.02 (0-0.2) K/uL Comprehensive Metabolic Panel 06/20/22 Range/Units 06:45 Sodium 137 (136-145) mmol/L Potassium 4.4 (3.5-5.1) mmol/L Chloride 104 (98-107) mmol/L Carbon Dioxide 32 (21-32) mmol/L BUN 35 H (6-23) mg/dl Creatinine 1.25 H (0.6-1.2) mg/dl Glucose 89 (70-99(Fasting)) mg/dl Calcium 8.5 L (8.6-10.3) mg/dl AST 24 (13-39) U/L ALT 21 (7-52) U/L Alkaline Phosphatase 59 (34-104) U/L Total Protein 6.4 (6.0-8.3) gm/dl Albumin 3.3 L (3.4-5.0) gm/dl Intake and Output 06/20/22 06/20/22 06/20/22 06:59 14:59 22:59 Intake Total 480 / 480 Balance 480 / 480 Intake: Oral 480 / 480 Other: Other Intake Source sips # Unmeasured Voids 1 2 Weight 51.7 kg 51.7 kg Weight Measurement Method Standing Scale Patient Weight 06/21/22 06:59 Weight 51.7 kg Chest X-Ray 06/17/22 23:55 XR chest 1V portable CLINICAL HISTORY: Dyspnea. COMPARISON STUDY: Chest radiograph June 16, 2022. FINDINGS: There is no pneumothorax. Small left pleural effusion is similar to prior exam. Small to moderate right pleural effusion has slightly increased. Pu lmonary edema has slightly progressed. Bibasilar opacities are again noted. Cardiomegaly is unchanged. IMPRESSION: 1. Small to moderate right and small left pleural effusions with persistent bib asilar opacities which could reflect consolidation or atelectasis. 2. Cardiomegaly with mild interstitial pulmonary edema. ACT 112: Negative or not required by law. Electronically signed by: Navjot Bone M.D. 06/18/2022 7:35 AM Chest X-Ray 06/18/22 02:18 XR chest 1V portable HISTORY: 86 years-old Female pleural effusion follow-up study in a patient with pleural effusions COMPARISON: 06/18/2022 TECHNIQUE: AP view of the chest FINDINGS: Cardiac silhouette is enlarged. Right greater than left layering pleural effusions with bibasilar consolidation appears stable from prior. Pulmonary vascular congestion with mild interstitial coarsening. No pneumothorax. Degenerative changes of the shoulders and spine. IMPRESSION: 1. Cardiomegaly with unchanged pulmonary edema. 2. Stable right greater than left pleural effusions with bibasilar consolidation. ACT 112: Negative or not required by law. The above report was generated using voice recognition software. It may contain grammatical, syntax or spelling errors. Electronically signed by: Devyn Padilla M.D. 06/18/2022 8:15 AM Ordered Studies Abnormal lab results 06/20/22 06/20/22 Range/Units 06:45 06:45 WBC 3.93 L (4.8-10.8) K/ul RBC 3.51 L (4.20-5.40) M/uL Hgb 11.9 L (12.0-16.0) g/dl Hct 36.4 L (37.0-47.0) % MCV 103.7 H (80.0-100.0) fL RDW Std Deviation 52.1 H (36.4-46.3) fL Lymph # (Auto) 0.50 L (1.2-3.4) K/uL Anion Gap 1 L (3-11) BUN 35 H (6-23) mg/dl Creatinine 1.25 H (0.6-1.2) mg/dl BUN/Creatinine Ratio 28.0 H (10-20) Calcium 8.5 L (8.6-10.3) mg/dl Albumin 3.3 L (3.4-5.0) gm/dl Hospital Course (1) Pleural effusion due to CHF (congestive heart failure): (2) Hypotension: (3) Chronic diastolic (congestive) heart failure: (4) Atrial fibrillation: (5) GERD (gastroesophageal reflux disease): (6) Hypothyroid: Plan 86-year-old female with history of atrial fibrillation, CHF, CKD and hypothyroidism - recent hospitalization for acute hypoxic respiratory failure secondary to pleural effusion from CHF status post thoracentesis with removal of 1500 mL transudative fluid returning to the ER after syncopal event. Acute respiratory failure - Sec to severe PulHTN with Pleural effusion and severe valvular heart ds. Patient was mildly hypoxic in the ED saturating in the 90% and requiring 2 L nasal cannula. Was not in any respiratory distress at time of discharge. Was on room air satting 95%. Two-step was negative at time of discharge. Pleural effusion due to CHF (congestive heart failure) Patient was hypotensive in the ED, so no IV diuretics were given at that time. Continue supplemental oxygen as needed Chest x-ray showed unchanged pulmonary edema, pleural effusion R>L with bibasilar consolidation. Pulmonary consultation and the defers thoracocentesis at this time due to no significant clinical benefit. She should follow-up with pulmonology on 06/24. Appointment already set up with Dr. aHrris. Cardiology recommends palliative care discussion given the patient has progressing valvulopathy. She will follow-up with with her support service tech in 1 week. Palliative care consulted and seen here. Patient declines the need for palliative care and wishes to continue treating aggressively. Patient has an appointment 06/24 with pulmonology to discuss further treatment options. Syncope Hypotension Severe Pul HTN and severe Mitral stenosis Severe Mitral stenosis likely causing syncope. Patient with low blood pressures in the ER. Cardiology consult recommend not restarting Entresto at this time. Severe Pul HtN with Mitral stenosis likely contributing. Cardio recommends palliative discussion as stated above. Due to patient's continued lower blood pressure, will hold off on all hypertension agents at this time. Discontinue diltiazem, Entresto, and bumex. Should follow-up in 1 week with PCP and cardiology to discuss hypertension management. Chronic diastolic (congestive) heart failure Bilateral pleural effusions most likely secondary to acute on chronic diastolic heart failure. Patient with low blood pressure in the ER. No IV diuresis at this time We will discontinue Entresto, diltiasem, and bumex given low blood pressures. Patient is oxygenation status improved without any intervention. f/u in one week with cardiology to discuss further treatment options for patient's CHF. Atrial fibrillation Was rate controlled. Anticoagulated on apixaban 2.5 mg p.o. twice daily. Hold diltiazem for now given low blood pressures Resume Apixiban. Continue digoxin 0.25 mg p.o. q. Thursday GERD (gastroesophageal reflux disease) Continue famotidine Hypothyroid Continue Synthroid Total Time Total Time Spent Total Time Spent (In Minutes): 20 Discharge Plan Discharge Items Patient Disposition: Home - Self-Care Reason For Visit: SHORTNESS OF BREATH Discharge Diagnosis: Pleural effusion due to congestive heart failure Activity: Per Instructions section Driving/Machine Use: Not permitted to drive Non-emergency contact: Primary Care Provider and City Controller Call non-emergency contact if: you have any medication questions, your pain is unusual for you and your temperature is above 101.5 Follow-up/Referrals: Vaibhav Luke DO [Physician] - (f/u in one week please call to schedule appointment ) Geri Salgado DO [Primary Care Provider] - (PLEASE CALL YOUR PRIMARY CARE PROVIDER TO SCHEDULE A DISCHARGE FOLLOW-UP APPOINTMENT WITHIN 7-10 DAYS) Diet: Low Sodium (2gm) Addtl Attending Provider Instructions: You were admitted to the hospital for syncopal episode secondary to pleural effusion and/or orthostatic hypotension. You were treated with discontinuing some of your blood pressure medication. A discharge summary will be sent to your primary care physician to ensure c ontinuity of care. Please bring this discharge summary with you to your next office appointment so that your provider can review it at that time. Follow-up appointments: * Make a follow-up appointment with your PCP within the next week. It is very important that you follow up with them shortly after discharge from the hospital. * You have an appointment with pulmonology on 06/24/2022 at 8:[address] Harris. Is very important that you make this appointment. If you are unable to make this appointment there number is [phone]. * We have requested you follow up with your support service tech (Dr. Luke) in 1 week. It is very important that you schedule this appointment. If there office does not reach out to you then you can call them at [phone]. * Keep all your follow-up appointments as already scheduled. If you cannot make an appointment, notify your provider. Medications: Your medication list has been reviewed and reconciled upon discharge to ensure accuracy and continuity of care. An updated list of all your medications is included with your hospital discharge paperwork. Please review this list closely, and make note of any changes. * You should stop taking your diltiazem, Entresto, and bumetanide. * If you have any issues filling these prescriptions, please call [phone] and ask to leave a message for Dr. Corbett. * Take your medications as instructed; do not skip a dose of your medicines. Make sure all of your doctors know every medicine you are taking (including [id number] medicines, vitamins, and supplements). Call your primary care provider before taking any new medicines (including over- the-counter medicines, vitamins, and supplements), because some of these may interact with your current medications, or may make your symptoms worse. Tell your primary care provider if you cannot afford your medications. CONTACT YOUR PRIMARY CARE PROVIDER if you experience any of the following: * Worsening of symptoms * Fever, chills, or fatigue * Difficulty following your treatment plan, or difficulty taking medications CALL 911 OR GO TO THE EMERGENCY DEPARTMENT if you experience any of the following: * Sudden, severe abdominal pain or nausea/vomiting * Severe chest pain, or chest pain that radiates (moves) to your jaw or arm * Sudden, severe shortness of breath or difficulty breathing Thank you for allowing us to participate in your care. Pending Studies at Discharge: No Stand-Alone Forms: My [facility], Smoking Cessation Medications and DC Order Prescriptions: Continued digoxin 125 mcg tablet 125 mcg PO 3XWK Rx Instructions: Thursday, Thursday, Thursday apixaban 2.5 mg tablet 2.5 mg PO BID levothyroxine 75 mcg tablet 75 mcg PO QAM cyanocobalamin (vitamin B-12) [Vitamin B-12] 1,000 mcg Tablet 1,000 mcg PO QDL famotidine 20 mg tablet 20 mg PO QAM nystatin 100,000 unit/gram ointment 1 applic TOPICAL UD hydrocortisone 2.5 % cream with perineal applicator 1 applic [place] UD Discontinued bumetanide 0.5 mg tablet 1 mg PO Q OTHER DAY Rx Instructions: pt states just starting to take it this way Entresto 49-51 mg tablet 1 tab PO BID 28 Days Qty: 56 0RF diltiazem HCl 240 mg capsule,extended release 24hr 240 mg PO DAILY Qty: 30 0RF Discharge Orders: Discharge Order (Routine); Ordered 06/20/22 Ordered By: Delvis Corbett Admission Data Admit Date/Time: 06/18/22 01:44 Attending Provider: Abby Lind Admit Provider: Lainey Schwartz Primary Care Provider: Geri Salgado Other Providers: Lainey Schwartz ; Duy Tan ; Ralph Oliveira ; Momo Balderas ; Reynaldo Newman ; Rakesh Grissom ; Endy Sidhu ; Patricio Duenas Jr ; Lizandro Brewer ; Elizabeth Galindo ; Candace Smith ; Pk Rojas ; Charlie Cheung ; Devon Salgado ; Latoya Shannon ; Erin Cedeno ; Efren Mittal ; Michael Shepard ; Rakesh Jimenez V. ; Jennifer Romo Other Interventions: Discharge Summary Assessment (RN) Last Done: 06/20/22 16:43 Supervising Physician Co-Signing Physician Notes Resident Physician Supervision Note: I independently interviewed and examined the patient and verified the sinclair history and physical, reviewed labs and image studies and agree with resident findings and care plan. Resident Activity Tracking Resident Involvement: Resident Care Provided Care Provided: Adult Hospital Medicine
[2022-06-20] MEDS: DIGOXIN 0.125 MG TAB PO SCH (16:10)
[2022-06-20 16:11] VITALS: PULSE 86
[2022-06-20 16:43] VITALS: BP 95/56; O2SAT 97
== END 2022-06-20 18:17 | disposition home or self-care (01) ==
LOC: ED 23:00 → INTOOBSV 06-18 01:44 → EDINP 06-18 01:44 → SUATTDRO 06-18 01:44 → 2N 06-18 02:18